=== PATIENT | female | born 1985 | race Caucasian/White ===

== ENCOUNTER 2017-12-13 00:07 | Emergency (ER) | payer BC ==
[2017-12-13] MEDS ORDERED: Morphine 10 MG/ML Syringe IM ONE (01:39)
[2017-12-13 02:43] VITALS: BP 111/68
--- NOTE | 2017-12-14 09:29 | ER ---
DATE SEEN: 12/13/2017 REASON FOR VISIT: Abdominal pain. HISTORY OF PRESENT ILLNESS: This is a 31-year-old female complaining of abdominal pain. Her pain is moderate, started tonight in the lower abdominal quadrants. There is no association with any vaginal bleeding, urinary symptoms, or GI symptoms. PAST SURGICAL HISTORY: 1. Appendectomy. 2. Gallbladder surgery. 3. x2. ALLERGIES: Reviewed. MEDICATIONS: Reviewed. PAST MEDICAL HISTORY: Type 2 diabetes. PHYSICAL EXAMINATION: VITAL SIGNS: Blood pressure is normal, pulse is 87, and she is afebrile. ABDOMEN: Soft with tenderness in the lower quadrants, but no rebound and no masses. CHEST AND HEART: Normal to auscultation. PSYCHIATRIC: Mental status is alert. LABORATORY DATA: Normal electrolytes and UA. Negative test. White cell count of 16.4. DIAGNOSTIC STUDIES: Pelvic ultrasound was unremarkable. IMPRESSION: Nonspecific abdominal pain. PLAN: Morphine 10 mg IM x1 dose. Symptoms improved. The patient was discharged home. /[id number] BRIGID/GEORGE
--- NOTE | 2017-12-14 13:56 | US ---
INDICATION: Left lower pelvic pain. PELVIC ULTRASOUND, NON-OB, LIMITED: Multiple ultrasonic images were obtained with transabdominal probe, 12/13/2017, and revealed poor visualization of the uterus and adnexa due to lack of complete filling of the urinary bladder. Endovaginal probe ultrasound will be necessary for further evaluation, therefore. No gross abnormalities were seen - no definite adnexal mass lesion or free fluid collection was identified. INDICATION: Left lower pelvic pain/need better visualization of the uterus and endometrial cavity, as well as ovaries, than was possible with the transabdominal probe. TRANSVAGINAL PELVIC ULTRASOUND: Utilizing transvaginal probe, multiple ultrasonic images were obtained and revealed the uterus to measure 7.2 x 3.3 x 5 cm with a 6.0 mm endometrial cavity measurement. The right ovary had a volume of 8.8 mL, measuring 3 x 3.3 x 1.7 cm. The left ovary volume was 2.6 mL with measurements of 1.4 x 2.2 x 1.6 cm. The endometrial cavity echo appeared essentially normal. Likely on the basis of menstrual cycle, there is some relatively low echogenicity in the central portion. Tiny nabothian cyst is suggested at the cervix. No mass lesions were identified in the myometrium or endometrium. No free fluid collections or adnexal mass lesions were identified. There are multiple follicles at the right ovary, which was otherwise unremarkable. The left ovary showed only very minimal follicles present. This accounts for the difference in volume of the ovaries. IMPRESSION: Essentially normal pelvic ultrasound with transvaginal probe. 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 MTDD
== END 2017-12-13 02:43 | disposition home or self-care (01) ==
LOC: FB.ED 00:07
DX: R10.30 Lower abdominal pain, unspecified (principal); E11.9 Type 2 diabetes mellitus without complications; Z90.49 Acquired absence of other specified parts of digestive tract
CPT/HCPCS: 36415; 76830; 76857; 80053; 81001; 81025; 82150; 85025; 96372; 99284; J2270

== ENCOUNTER 2018-04-03 07:36 | Emergency (ER) | payer BC, OTHER ==
[2018-04-03] MEDS ORDERED: HYDROmorphone 2 MG/ML SDV IM ONE (07:56)
--- NOTE | 2018-04-03 08:00 | EDM.PDOC ---
ED HPI GENERAL MEDICAL PROBLEM - General Chief Complaint: Back Pain or Injury Stated Complaint: back pain Time Seen by Provider: 04/03/18 07:57 Source of Information: Reports: Patient History Limitations: Reports: No Limitations - History of Present Illness INITIAL COMMENTS - FREE TEXT/NARRATIVE: [place] a pop @mid back yesterday at work while lifting 5 lb tubes, developed mid back pain that radiates to hips and up back, not relieved by Ibuprofen or Tylenol. 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 Pain Score (Numeric/FACES): 10 - Related Data Allergies Allergy/AdvReac Type Severity Reaction Status Date / Time latex Allergy Rash Verified 04/03/18 07:50 naproxen [From Naprosyn] Allergy Nausea and Verified 04/03/18 07:50 Vomiting Penicillins Allergy Rash Verified 04/03/18 07:50 Home Meds: Home Meds Ibuprofen [Motrin] 600 mg PO Q6HR PRN 06/12/13 [History] Topiramate [Topamax] 50 mg PO BID 02/15/14 [History] Pregabalin [Lyrica] 150 mg PO BID 04/06/14 [History] [place] Carbonate [Eskalith] 300 mg PO BID 11/26/15 [History] traZODone 50 mg PO DAILY 11/26/15 [History] Acetaminophen/HYDROcodone [[place] 325-5 MG] 1 - 2 tab PO Q6H PRN #20 tab [Rx] Lurasidone HCl [Latuda] 1 tab PO BEDTIME 04/03/18 [History] sitaGLIPtin Phos/Metformin HCl [Janumet 50-1,000 MG] 1 tab PO BID 04/03/18 [ History] Past Medical History HEENT History: Reports: Impaired Vision Respiratory History: Reports: Bronchitis, Recurrent Gastrointestinal History: Reports: Cholelithiasis 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: Musculoskeletal History: Reports: Fibromyalgia Psychiatric History: Reports: Anxiety, Depression, Panic Attack Endocrine/Metabolic History: Reports: Diabetes, Type II - Past Surgical History GI Surgical History: Reports: Appendectomy, Cholecystectomy, Other (See Below) Other GI Surgeries/Procedures: exp lap for ruptured cyst Female Surgical History: Reports: Section Social & Family History - Family History Family Medical History: Noncontributory - Tobacco Use Smoking Status *Q: Current Every Day Smoker Tobacco Use Within Last Twelve Months: Cigarettes - Caffeine Use Caffeine Use: Reports: Coffee, Soda - Living Situation & Occupation Living situation: Reports: Occupation: Unemployed ED ROS GENERAL - Review of Systems Review Of Systems: ROS reveals no pertinent complaints other than HPI. ED EXAM, UPPER BACK/NECK PAIN - Physical Exam Exam: See Below Exam Limited By: No Limitations General Appearance: Alert, WD/WN, No Apparent Distress Ears Exam: Normal External Exam Nose Exam: Normal Inspection Throat/Mouth Exam: No Airway Compromise Head Exam: Atraumatic, Normocephalic Neck Exam: Full Range of Motion Cardiovascular/Respiratory: Regular Rate, Rhythm, No M/R/G GI/Abdominal: Non-Tender Back Exam: Muscle Spasm, Vertebral Tenderness (mid back) Extremities: Normal Range of Motion Neurologic: No Motor/Sensory Deficits, Normal Mood/Affect Psychiatric: Normal Affect, Normal Mood Skin Exam: Normal Color, Warm/Dry Course - Vital Signs Last Recorded V/S: Last Vital Signs Temp 36.9 C 04/03/18 07:45 Pulse 90 04/03/18 07:45 Resp 17 04/03/18 07:45 BP 136/65 04/03/18 07:45 Pulse Ox 100 04/03/18 07:45 - Orders/Labs/Meds Orders: Active Orders 24 hr Category Date Time Status Thoracic Spine 3V [CR] Stat Exams 04/03/18 07:56 Ordered Meds: Medications Discontinued Medications Generic Name Dose Route Start Last Admin Trade Name Jose Manuel PRN Reason Stop Dose Admin Hydromorphone HCl 1 mg 04/03/18 07:56 04/03/18 08:38 Dilaudid IM 04/03/18 07:57 1 mg ONETIME ONE Administration - Radiology Interpretation Free Text/Narrative:: Thoracic spine XR: NAD - Re-Assessments/Exams Free Text/Narrative Re-Assessment/Exam: 04/03/18 08:53 Symptoms improved after Dilaudid 1mg IM Departure - Departure Time of Disposition: 08:53 Disposition: Home, Self-Care 01 Condition: Good Clinical Impression: Strain of mid-back Qualifiers: Encounter type: initial encounter Qualified Code(s): S29.012A - Strain of muscle and tendon of back wall of thorax, initial encounter - Discharge Information *PRESCRIPTION DRUG MONITORING PROGRAM REVIEWED*: Yes *COPY OF PRESCRIPTION DRUG MONITORING REPORT IN PATIENT [place]: Not Applicable Prescriptions: Acetaminophen/HYDROcodone [[place] 325-5 MG] 1 - 2 tab PO Q6H PRN #20 tab PRN Reason: Pain Instructions: Back Injury Prevention, [id number] Referrals: Artis Antonio MD [Primary Care Provider] - Forms: ED Department Discharge, ED Return to Work/School Form Additional Instructions: Rest. Fill prescription for [place] and take as directed. Avoid lifting greater than 10 lbs x 1 week. Follow up with your primary physician in 2-3 days. Return to the ER as needed. - My Orders Last 24 Hours: My Active Orders 04/03/18 07:56 Thoracic Spine 3V [CR] Stat - Assessment/Plan Last 24 Hours: My Active Orders 04/03/18 07:56 Thoracic Spine 3V [CR] Stat
[2018-04-03 09:39] VITALS: BP 137/79
--- NOTE | 2018-04-06 15:20 | CR ---
INDICATION: Injury. THORACIC SPINE: Six images of the thoracic spine were obtained in frontal and lateral projections and revealed normal appearing bone density, vertebral body and disk heights to be well-maintained, pedicles to appear intact. Minimal degenerative hypertrophic change is noted anteriorly off mid thoracic vertebral bodies. If occult fracture site is suspected clinically, nuclear bone imaging, CT, or MRI may be helpful. A very minimal dextroconvex scoliosis is suggested at the thoracolumbar spine. IMPRESSION: No acute fracture or dislocation identified. MTDD
== END 2018-04-03 09:12 | disposition home or self-care (01) ==
LOC: FB.ED 07:36
DX: S29.012A Strain of muscle and tendon of back wall of thorax, initial encounter (principal); E11.9 Type 2 diabetes mellitus without complications; Z91.040 Latex allergy status; Z88.0 Allergy status to penicillin; X50.9XXA Other and unspecified overexertion or strenuous movements or postures, initial encounter
CPT/HCPCS: 72072; 96372; 99283; J1170

== ENCOUNTER 2018-09-09 23:16 | Emergency (ER) | payer BC ==
[2018-09-09] MEDS ORDERED: Ketorolac 60 MG/2 ML SDV IM ONE (23:58)
--- NOTE | 2018-09-10 00:02 | EDM.PDOC ---
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 has had pain in upper mid chest to pressure, ibuprofen once earlier today helped , not taken other meds has DM smokes 1 ppd no previous heart or lung problems constant, nothing helps except ibuprofen, nothing makes it worse needs a note for work 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 chest radiating into upper back Pain Score (Numeric/FACES): 7 - Related Data Allergies Allergy/AdvReac Type Severity Reaction Status Date / Time latex Allergy Rash Verified 09/09/18 23:24 naproxen [From Naprosyn] Allergy Nausea and Verified 09/09/18 23:24 Vomiting Penicillins Allergy Rash Verified 09/09/18 23:24 Home Meds: Home Meds Ibuprofen [Motrin] 600 mg PO Q6HR PRN 06/12/13 [History] Topiramate [Topamax] 50 mg PO BID 02/15/14 [History] Pregabalin [Lyrica] 300 mg PO BID 04/06/14 [History] [place] Carbonate [Eskalith] 900 mg PO DAILY 11/26/15 [History] traZODone 150 mg PO DAILY 11/26/15 [History] Lurasidone HCl [Latuda] 120 mg PO BEDTIME 04/03/18 [History] sitaGLIPtin Phos/Metformin HCl [Janumet 50-1,000 MG] 1 tab PO BID 04/03/18 [ History] Eszopiclone 3 mg BEDTIME 09/09/18 [History] Insulin Aspart [NovoLOG] 10 units TID 09/09/18 [History] Insulin Degludec [Tresiba Flextouch U-100] 50 unit SQ DAILY 09/09/18 [History] [place] Carbonate 600 mg BEDTIME 09/09/18 [History] Past Medical History HEENT History: Reports: Impaired Vision Other HEENT History: no dentures Respiratory History: Reports: Bronchitis, Recurrent Gastrointestinal History: Reports: Cholelithiasis Genitourinary History: Reports: None 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: Reports: Polycystic Ovaries, 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: Musculoskeletal History: Reports: Fibromyalgia Neurological History: Reports: Migraines, Neuropathy, Diabetic Psychiatric History: Reports: Anxiety, Bipolar, Depression, Panic Attack, Psych Hospitalization(s), Suicide Attempt Endocrine/Metabolic History: Reports: Diabetes, Type II, Obesity/BMI 30+ - Past Surgical History HEENT Surgical History: Reports: Adenoidectomy, Oral Surgery, Tonsillectomy GI Surgical History: Reports: Appendectomy, Cholecystectomy, Other (See Below) Other GI Surgeries/Procedures: exp lap for ruptured cyst Female Surgical History: Reports: Section Other Female Surgeries/Procedures: CS x 1 Neurological Surgical History: Reports: None Musculoskeletal Surgical History: Reports: None Social & Family History - Family History Family Medical History: Noncontributory - Tobacco Use Smoking Status *Q: Current Every Day Smoker Years of Tobacco use: 20 Packs/Tins Daily: 0.5 - Caffeine Use Caffeine Use: Reports: Coffee, Energy Drinks, Soda - Recreational Drug Use Recreational Drug Use: No - Living Situation & Occupation Living situation: Reports: Occupation: Unemployed ED ROS GENERAL - Review of Systems Review Of Systems: See Below Constitutional: Reports: No Symptoms HEENT: Reports: No Symptoms Respiratory: Reports: No Symptoms Cardiovascular: Reports: Chest Pain Endocrine: Reports: No Symptoms GI/Abdominal: Reports: No Symptoms : Reports: No Symptoms Musculoskeletal: Reports: No Symptoms Skin: Reports: No Symptoms Neurological: Reports: No Symptoms Psychiatric: Reports: No Symptoms Hematologic/Lymphatic: Reports: No Symptoms Immunologic: Reports: No Symptoms ED EXAM, GENERAL - Physical Exam Exam: See Below Exam Limited By: No Limitations General Appearance: Alert, WD/WN, No Apparent Distress Nose: Normal Inspection, Normal Mucosa, No Blood Throat/Mouth: Normal Inspection, Normal Lips, Normal Teeth, Normal Gums, Normal Oropharynx, Normal Voice, No Airway Compromise Head: Atraumatic, Normocephalic Neck: Normal Inspection, Supple, Non-Tender, Full Range of Motion. No: Lymphadenopathy (R), Lymphadenopathy (L) Respiratory/Chest: No Respiratory Distress, Lungs Clear, Normal Breath Sounds, No Accessory Muscle Use, Other (1-2+ tender to palaption of upper sternum and adjacent ribs, lungs clear in all rosa) Cardiovascular: Regular Rate, Rhythm, No Edema, No Gallop, No Murmur, No Rub GI/Abdominal: Soft, Non-Tender, No Distention Back Exam: Normal Inspection, Full Range of Motion, NT Extremities: Normal Inspection, Normal Range of Motion, Non-Tender, No Pedal Edema Neurological: Alert, Oriented, CN II-XII Intact, Normal Cognition, No Motor/ Sensory Deficits Psychiatric: Normal Affect, Normal Mood Skin Exam: Warm, Dry, Intact, Normal Color, No Rash Lymphatic: No Adenopathy Course - Vital Signs Last Recorded V/S: Last Vital Signs Temp 36.9 C 09/09/18 23:24 Pulse 90 09/09/18 23:24 Resp 18 09/09/18 23:24 BP 118/62 09/09/18 23:24 Pulse Ox 98 09/09/18 23:24 - Orders/Labs/Meds Orders: Active Orders 24 hr Category Date Time Status EKG Documentation Completion [RC] ASDIRECTED Care 09/09/18 23:42 Active CULTURE STREP A CONFIRMATION [RM] Stat Lab 09/10/18 00:10 Results STREP SCRN A RAPID W CULT CONF [RM] Stat Lab 09/09/18 23:59 Ordered EKG 12 Lead [EK] Routine Ther 09/09/18 23:42 Ordered Labs: Laboratory Tests 09/10/18 09/10/18 09/10/18 Range/Units 00:20 00:20 00:20 WBC 16.4 H (4.5-12.0) X10-3/uL RBC 4.92 (3.23-5.20) x10(6)uL Hgb 14.3 (11.5-15.5) g/dL Hct 42.6 (30.0-51.3) % MCV 86.7 (80-96) fL MCH 29.0 (27.7-33.6) pg MCHC 33.5 (32.2-35.4) g/dL RDW 13.2 (11.5-15.5) % Plt Count 228 (125-369) X10(3)uL MPV 9.3 (7.4-10.4) fL Neut % (Auto) 67.0 (46-82) % Lymph % (Auto) 21.4 (13-37) % [place] % (Auto) 6.0 (4-12) % Eos % (Auto) 5 (1.0-5.0) % Baso % (Auto) 0 (0-2) % Neut # (Auto) 10.9 H (1.6-8.3) # Lymph # (Auto) 3.5 (0.6-5.0) # [place] # (Auto) 1.0 (0.0-1.3) # Eos # (Auto) 0.9 H (0.0-0.8) # Baso # (Auto) 0.1 (0.0-0.2) # Sodium 141 (135-145) mmol/L Potassium 3.5 (3.5-5.3) mmol/L Chloride 103 (100-110) mmol/L Carbon Dioxide 27 (21-32) mmol/L BUN 10 (7-18) mg/dL Creatinine 0.8 (0.55-1.02) mg/dL Est Cr Clr Drug Dosing 99.95 mL/min Estimated GFR (MDRD) > 60 (>60) BUN/Creatinine Ratio 12.5 (9-20) Glucose 158 H (80-116) mg/dL Calcium 9.5 (8.6-10.2) mg/dL Total Bilirubin 0.4 (0.1-1.3) mg/dL AST 22 (5-25) IU/L ALT 32 D (12-36) U/L Alkaline Phosphatase 130 H (56-112) IU/L Troponin I < 0.017 L (<0.017-0.056) ng/mL C-Reactive Protein 1.8 H (0.5-0.9) mg/dL Total Protein 7.2 (6.0-8.0) g/dL Albumin 3.4 L (3.5-5.2) g/dL Globulin 3.8 g/dL Albumin/Globulin Ratio 0.9 Meds: Medications Discontinued Medications Generic Name Dose Route Start Last Admin Trade Name Freq PRN Reason Stop Dose Admin Ketorolac Tromethamine 60 mg 09/09/18 23:58 09/10/18 00:10 Toradol IM 09/09/18 23:59 60 mg ONETIME ONE Administration - Re-Assessments/Exams Free Text/Narrative Re-Assessment/Exam: 09/10/18 01:07 inc'd CRP 1.8 c/w viral bronchitis as cause of cough strep and flu are neg feels better after Toradol IM, agrees to use ibuprofen and APAP at home Departure - Departure Time of Disposition: 01:08 Disposition: Home, Self-Care 01 Condition: Good Clinical Impression: Costochondritis Instructions: Costochondritis Referrals: Artis Antonio MD [Primary Care Provider] - Forms: ED Department Discharge, ED Return to Work/School Form Additional Instructions: For pain and inflammation, take acetaminophen 500 mg 2 tabs and ibuprofen 200 mg 4 tabs 3 times a day for 5 days, longer if needed. Use heat to chest for 10 minutes 4 times a day. No work. See your doctor in 3 days for further recommendations. Return to ED if feeling worse. - My Orders Last 24 Hours: My Active Orders 09/09/18 23:42 EKG Documentation Completion [RC] ASDIRECTED EKG 12 Lead [EK] Routine 09/09/18 23:59 STREP SCRN A RAPID W CULT CONF [RM] Stat 09/10/18 00:10 CULTURE STREP A CONFIRMATION [RM] Stat - Assessment/Plan Last 24 Hours: My Active Orders 09/09/18 23:42 EKG Documentation Completion [RC] ASDIRECTED EKG 12 Lead [EK] Routine 09/09/18 23:59 STREP SCRN A RAPID W CULT CONF [RM] Stat 09/10/18 00:10 CULTURE STREP A CONFIRMATION [RM] Stat
[2018-09-10 01:09] VITALS: BP 99/43
== END 2018-09-10 01:20 | disposition home or self-care (01) ==
LOC: FB.ED 23:16
DX: M94.0 Chondrocostal junction syndrome [Tietze] (principal); F17.210 Nicotine dependence, cigarettes, uncomplicated; E11.40 Type 2 diabetes mellitus with diabetic neuropathy, unspecified; F31.9 Bipolar disorder, unspecified; F41.9 Anxiety disorder, unspecified; Z91.040 Latex allergy status; Z79.899 Other long term (current) drug therapy; Z79.4 Long term (current) use of insulin
CPT/HCPCS: 36415; 80053; 84484; 85025; 86140; 87081; 87804; 87880; 93005; 96372; 99284; J1885

== ENCOUNTER 2018-10-02 22:36 | Emergency (ER) | payer BC ==
[2013-06-12 08:42] VITALS: BP 138/89
[2018-10-02] MEDS ORDERED: hydrOXYzine HCl 50 MG/ML SDV IM ONE (23:24)
[2018-10-02] MEDS ORDERED: Morphine 10 MG/ML Syringe IM ONE (23:24)
[2018-10-02] MEDS ORDERED: Morphine 2 MG/ML Syringe IM ONE (23:31)
--- NOTE | 2018-10-02 23:49 | ER ---
DATE SEEN: 10/02/2018 CHIEF COMPLAINT: Left knee pain. HISTORY OF PRESENT ILLNESS: This is a 32-year-old female with left knee pain for a few hours. She left work because the pain on the left knee became unbearable. There was no specific injury and the pain started before she went to work. She had trouble with both knees before, especially on the right one. She also has a history of back pain, type 2 diabetes and fibromyalgia. She has tried Tylenol at home with no relief. REVIEW OF SYSTEMS: No fever or chills. She complains some swelling and the knee pain is most localized in the back. Denies any weakness. ALLERGIES: Please see the electronic record. PHYSICAL EXAMINATION: VITAL SIGNS: Her blood pressure and temperature within normal limits. EXTREMITIES: Left knee, no obvious effusion noted. No trauma. There is tenderness anteriorly and some in the popliteal fossa. Range of motion is unlimited. Gait and station are normal. IMPRESSION: Knee pain, acute internal derangement. PLAN: Morphine 10 mg IM and Vistaril 50 mg IM. I recommended rest, ice and elevation and I asked her to return to work, but not to bear weight on it and she should follow up on Thursday in the clinic. TIME OF DISCHARGE: 1130. /[id number] BRIGID/GEORGE
[2018-10-02 23:58] VITALS: BP 123/75
== END 2018-10-03 00:01 | disposition home or self-care (01) ==
LOC: FB.ED 22:36
DX: M23.92 Unspecified internal derangement of left knee (principal); E11.9 Type 2 diabetes mellitus without complications; Z79.4 Long term (current) use of insulin; Z79.899 Other long term (current) drug therapy; Z91.040 Latex allergy status; Z88.5 Allergy status to narcotic agent; Z88.0 Allergy status to penicillin
CPT/HCPCS: 96372; 99283; J2270; J3410

== ENCOUNTER 2019-04-23 15:52 | Inpatient (IN) | payer BC, OTHER ==
[2019-04-23] MEDS ORDERED: Promethazine 12.5 MG in Sodium Chloride 0.9% 50 ML IV PRN (16:32)
[2019-04-23] MEDS ORDERED: Ondansetron 4 MG Tab.DIS PO PRN (16:32)
--- NOTE | 2019-04-23 16:51 | PCM.HP.2 ---
H&P History of Present Illness - General Date of Service: 04/23/19 Admit Problem/Dx: Admission Diagnosis/Problem Admission Diagnosis/Problem Cellulitis of buttock Source of Information: Patient, Family History Limitations: Reports: No Limitations - History of Present Illness Initial Comments - Free Text/Narative: Patient noted pain with sitting and green foul drainage from left buttock starting on , she refused to come to the doctor on when her advised her to. She has been having fevers, chills, nausea, vomiting, but no diarrhea. Last emesis was last night. She has had increased frequency but no dysuria or hematuria. She has not done any sitz baths or applied any topical antibiotics. Rates pain 04/21. Was seen in Walk-In clinic today and when provider examined, called me for admission. She was afebrile in the clinic but tachycardiac. When she arrived to floor she was febrile, 101. She has been having cold symptoms for the past week but has not taken any treatments. She is Diabetic that has Tresiba, Novolog and Janumet but has not been taking her medications. She knows that her uncontrolled sugars put her at risk of infections. She also report being achy all over. No dizziness or lightheadedness. Also was treated for fungal infection on her feet with oral and topical medication(not sure of the names), oral for 4 weeks but did not change the rash. - Related Data Allergies/Adverse Reactions: Allergies Allergy/AdvReac Type Severity Reaction Status Date / Time latex Allergy Rash Verified 10/02/18 23:49 naproxen [From Naprosyn] Allergy Nausea and Verified 10/02/18 23:49 Vomiting Penicillins Allergy Rash Verified 10/02/18 23:49 Home Medications: Home Meds Ibuprofen [Motrin] 600 mg PO Q6HR PRN 06/12/13 [History] Topiramate [Topamax] 50 mg PO BID 02/15/14 [History] Pregabalin [Lyrica] 300 mg PO BID 04/06/14 [History] Butte Carbonate [Eskalith] 900 mg PO DAILY 11/26/15 [History] traZODone 150 mg PO DAILY 11/26/15 [History] Lurasidone HCl [Latuda] 120 mg PO BEDTIME 04/03/18 [History] sitaGLIPtin Phos/Metformin HCl [Janumet 50-1,000 MG] 1 tab PO BID 04/03/18 [ History] Eszopiclone 3 mg BEDTIME 09/09/18 [History] Insulin Aspart [NovoLOG] 10 units TID 09/09/18 [History] Insulin Degludec [Tresiba Flextouch U-100] 50 unit SQ DAILY 09/09/18 [History] [place]te Carbonate 600 mg BEDTIME 09/09/18 [History] Past Medical History HEENT History: Reports: Impaired Vision Other HEENT History: no dentures Respiratory History: Reports: Bronchitis, Recurrent Gastrointestinal History: Reports: Cholelithiasis Genitourinary History: Reports: None 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 ASSISTANT History: Reports: Polycystic Ovaries, Other OB/BYN History: Musculoskeletal History: Reports: Fibromyalgia Neurological History: Reports: Migraines, Neuropathy, Diabetic Psychiatric History: Reports: Anxiety, Bipolar, Depression, Panic Attack, Psych Hospitalization(s), Suicide Attempt Endocrine/Metabolic History: Reports: Diabetes, Type II, Obesity/BMI 30+ - Past Surgical History HEENT Surgical History: Reports: Adenoidectomy, Oral Surgery, Tonsillectomy GI Surgical History: Reports: Appendectomy, Cholecystectomy, Other (See Below) Other GI Surgeries/Procedures: exp lap for ruptured cyst Female Surgical History: Reports: Section Other Female Surgeries/Procedures: CS x 1 Neurological Surgical History: Reports: None Musculoskeletal Surgical History: Reports: None Social & Family History - Family History Family Medical History: Noncontributory - Caffeine Use Caffeine Use: Reports: Coffee, Soda - Living Situation & Occupation Living situation: Reports: Occupation: Unemployed H&P Review of Systems - Review of Systems: Review Of Systems: See Below General: Reports: Fever, Chills, Weakness, Fatigue HEENT: Reports: Rhinitis, Sinus Congestion. Denies: Ear Pain, Eye Pain, Headaches, Sore Throat Pulmonary: Reports: Cough. Denies: Shortness of Breath Cardiovascular: Reports: No Symptoms Gastrointestinal: Reports: Abdominal Pain, Nausea, Vomiting. Denies: Constipation, Diarrhea Genitourinary: Reports: Frequency. Denies: Dysuria, Hematuria Musculoskeletal: Reports: Muscle Pain Skin: Reports: Rash, Wound Neurological: Reports: No Symptoms Hematologic/Lymphatic: Reports: No Symptoms Exam - Exam Exam: See Below - Exam General: Alert, Oriented, Cooperative HEENT: PERRLA, Hearing Intact, Mucosa Moist & [place], Nares Patent, Normal Nasal Septum, Posterior Pharynx Clear, Conjunctiva Clear, EOMI, EACs Clear, TMs Clear Neck: Supple, Trachea Midline. No: Lymphadenopathy Lungs: Clear to Auscultation, Normal Respiratory Effort Cardiovascular: Regular Rate, Tachycardia GI/Abdominal Exam: Normal Bowel Sounds, Soft, No Distention, Guarding, Tender ( BLQ). No: Rigid, Rebound (Female) Exam: Normal External Exam, Normal Speculum Exam, Normal Bimanual Exam Rectal (Female) Exam: Other (Foul green drainage(culture collected), indurated, tender erythematous warm area 7 cm, surrounding erythema 18 cm, edges marked with skin marker) Extremities: No Pedal Edema Skin: Rash (left foot, yellow, fissured patches on ball, instep, and lateral side of her foot.) Neuro Extensive - Mental Status: Alert, Oriented x3 - Problem List (1) Cellulitis of left buttock SNOMED Code(s): 26645601 ICD Code: L03.317 - CELLULITIS OF BUTTOCK Status: Acute Current Visit: Yes (2) Nausea & vomiting SNOMED Code(s): 99091357 ICD Code: R11.2 - NAUSEA WITH VOMITING, UNSPECIFIED Status: Acute Current Visit: Yes (3) Fever SNOMED Code(s): 435377699 ICD Code: R50.9 - FEVER, UNSPECIFIED Status: Acute Current Visit: Yes (4) Fibromyalgia SNOMED Code(s): 336679477 ICD Code: M79.7 - FIBROMYALGIA Status: Acute Current Visit: Yes (5) Diabetes mellitus with insulin therapy SNOMED Code(s): 928130396 ICD Code: E11.9 - TYPE 2 DIABETES MELLITUS WITHOUT COMPLICATIONS; Z79.4 - ALF (CURRENT) USE OF INSULIN Status: Acute Current Visit: Yes Problem List Initiated/Reviewed/Updated: Yes Orders Last 24hrs: Active Orders 24 hr Category Date Time Status Patient Status [ADT] Routine ADT 04/23/19 16:32 Ordered Ambulate [RC] PER UNIT ROUTINE Care 04/23/19 16:34 Ordered Antiembolic Devices [RC] .Routine Care 04/23/19 16:32 Ordered Blood Glucose Check, Bedside [RC] WITHMEALSANDBED Care 04/23/19 16:32 Ordered May Shower [RC] ASDIRECTED Care 04/23/19 16:32 Ordered Oxygen Therapy [RC] PRN Care 04/23/19 16:32 Ordered Peripheral IV Care [RC] . DIRECTED Care 04/23/19 16:32 Ordered Up ad Mikayla [RC] ASDIRECTED Care 04/23/19 16:32 Ordered VTE/DVT Education [RC] Per Unit Routine Care 04/23/19 16:32 Ordered Vital Signs [RC] Q4H Care 04/23/19 16:32 Ordered Consistent Carbohydrate Diet [DIET] Diet 04/23/19 Dinner Ordered CBC WITH AUTO DIFF [HEME] Urgent Lab 04/23/19 16:32 Ordered COMPREHENSIVE METABOLIC PN,CMP [CHEM] Urgent Lab 04/23/19 16:32 Ordered CRP [C-REACTIVE PROTEIN] [CHEM] Urgent Lab 04/23/19 16:44 Ordered CULTURE BLOOD [BC] Urgent Lab 04/23/19 16:40 Ordered CULTURE BLOOD [BC] Urgent Lab 04/23/19 16:40 Ordered CULTURE ROUTINE + SMEAR [RM] Routine Lab 04/23/19 16:32 Ordered UA W/MICROSCOPIC [URIN] Routine Lab 04/23/19 16:32 Ordered Acetaminophen [Tylenol] Med 04/23/19 16:32 Ordered 650 mg PO Q4H PRN Enoxaparin [Lovenox] Med 04/23/19 16:45 Ordered 40 mg SUBCUT Q24H HYDROmorphone [Dilaudid] Med 04/23/19 16:32 Ordered 0.25 mg IVPUSH Q2H PRN Ketorolac [Toradol] Med 04/23/19 16:32 Ordered 30 mg IVPUSH Q6H PRN Nicotine [Habitrol] Med 04/23/19 16:45 Ordered 7 mg TRDERM DAILY Ondansetron [Zofran ODT] Med 04/23/19 16:32 Ordered 4 mg PO Q4H PRN Promethazine [Phenergan] 12.5 mg Med 04/23/19 16:32 Ordered Sodium Chloride 0.9% [Normal Saline] 50 ml IV Q6H Sodium Chloride 0.9% @ 125 MLS/HR (1000ml) Med 04/23/19 16:45 Ordered Sodium Chloride 0.9% [Normal Saline] 1,000 ml IV ASDIRECTED Sodium Chloride 0.9% [Saline Flush] Med 04/23/19 16:32 Ordered 10 ml FLUSH ASDIRECTED PRN Antiembolic Hose [OM.PC] Per Unit Routine Oth 04/23/19 16:34 Ordered Blood Culture x2 Reflex Set [OM.PC] Urgent Oth 04/23/19 16:32 Ordered Peripheral IV Insertion Adult [OM.PC] Routine Oth 04/23/19 16:32 Ordered Resuscitation Status Routine Resus Stat 04/23/19 16:32 Ordered Medication Orders Acetaminophen (Tylenol) 650 mg PO Q4H PRN PRN Reason: Pain (Mild 1-3)/fever Enoxaparin Sodium (Lovenox) 40 mg SUBCUT Q24H [facility] Hydromorphone HCl (Dilaudid) 0.25 mg IVPUSH Q2H PRN PRN Reason: Pain (severe 7-10) Promethazine HCl 12.5 mg/ (Sodium Chloride) 50.5 mls @ 200 mls/hr IV Q6H PRN PRN Reason: Nausea/Vomiting Sodium Chloride (Normal Saline) 1,000 mls @ 125 mls/hr IV ASDIRECTED [facility] Ketorolac Tromethamine (Toradol) 30 mg IVPUSH Q6H PRN PRN Reason: Pain (moderate 4-6) Nicotine (Habitrol) 7 mg TRDERM DAILY [facility] Ondansetron HCl (Zofran Odt) 4 mg PO Q4H PRN PRN Reason: nausea, able to take PO Sodium Chloride (Saline Flush) 10 ml FLUSH ASDIRECTED PRN PRN Reason: Keep Vein Open Assessment/Plan Comment:: Admit for observation: IV antibiotics, CBC, CMP, CRP, wound culture, Blood cultures x 2, Urine. Tylenol as needed for fever, Ketorolac as needed moderate pain, receive dose in clinic around 4 pm. Dilaudid as needed severe pain. Dressed with 4x4 gauze, & ABD pad. It is draining, if worsens will do CT abdomen /pelvis with contrast and consult surgery. FULL CODE. - Mortality Measure Prognosis:: Good
[2019-04-23] MEDS ORDERED: Ciprofloxacin in D5W 400 MG in Premix Bag 1 BAG IV SCH ×2 (18:00)
[2019-04-23] MEDS: Nicotine 7 MG/24 Hr Patch TRDERM SCH (18:20)
[2019-04-23] MEDS: Enoxaparin 40 MG/0.4 ML Syringe SUBCUT SCH (18:20)
[2019-04-23] MEDS: Sodium Chloride 0.9% 10 ML Syringe FLUSH PRN ×3 (18:22→22:28)
[2019-04-23] MEDS ORDERED: Insulin Regular, Human 100 Units/ML 3 ML Vial IV ONE (19:06)
[2019-04-23] MEDS ORDERED: Sodium Chloride 0.9% 1,000 ML IV ONE (19:07)
[2019-04-23] MEDS: metroNIDAZOLE/Normal Saline 500 MG in Premix Bag 1 BAG IV SCH ×2 (19:18→22:16)
--- NOTE | 2019-04-23 20:17 | PCM.PN ---
- General Info Date of Service: 04/23/19 Subjective Update: Called to review labs/patient. She is running a temp,blood sugar high. Drainage, smelly on the sacrum - Review of Systems HEENT: Reports: No Symptoms Pulmonary: Reports: No Symptoms Cardiovascular: Reports: No Symptoms Gastrointestinal: Reports: Diarrhea - Patient Data Vitals - Most Recent: Last Vital Signs Temp 101.1 F H 04/23/19 16:32 Pulse 114 H 04/23/19 16:32 Resp 16 04/23/19 16:32 BP 112/60 04/23/19 16:32 Pulse Ox 95 04/23/19 16:32 Weight - Most Recent: 118.025 kg Lab Results Last 24 Hours: Laboratory Results - last 24 hr 04/23/19 04/23/19 04/23/19 Range/Units 17:00 17:00 17:00 WBC 20.0 H (4.5-12.0) X10-3/uL RBC 5.10 (3.23-5.20) x10(6)uL Hgb 14.4 (11.5-15.5) g/dL Hct 42.9 (30.0-51.3) % MCV 84.0 (80-96) fL MCH 28.2 (27.7-33.6) pg MCHC 33.5 (32.2-35.4) g/dL RDW 12.7 (11.5-15.5) % Plt Count 157 (125-369) X10(3)uL MPV 11.7 H (7.4-10.4) fL Add Manual Diff Yes Neutrophils % (Manual) 79 (46-82) % Band Neutrophils % 5 (0-6) % Lymphocytes % (Manual) 7 L (13-37) % Monocytes % (Manual) 9 (4-12) % Toxic Granulation Few H (NOT SEEN) Sodium 130 L D (135-145) mmol/L Potassium 3.2 L (3.5-5.3) mmol/L Chloride 95 L D (100-110) mmol/L Carbon Dioxide 22 (21-32) mmol/L BUN 11 (7-18) mg/dL Creatinine 0.8 (0.55-1.02) mg/dL Est Cr Clr Drug Dosing 99.01 mL/min Estimated GFR (MDRD) > 60 (>60) BUN/Creatinine Ratio 13.8 (9-20) Glucose 491 H* D (80-116) mg/dL Calcium 8.8 (8.6-10.2) mg/dL Total Bilirubin 0.5 (0.1-1.3) mg/dL AST 16 D (5-25) IU/L ALT 26 D (12-36) U/L Alkaline Phosphatase 193 H (56-112) IU/L C-Reactive Protein 20.9 H* (0.5-0.9) mg/dL Total Protein 6.9 (6.0-8.0) g/dL Albumin 2.2 L (3.5-5.2) g/dL Globulin 4.7 g/dL Albumin/Globulin Ratio 0.5 Urine Color (YELLOW) Urine Appearance (CLEAR) Urine pH (5.0-6.5) Ur Specific [place] (1.010-1.025) Urine Protein (NEGATIVE) mg/dL Urine Glucose (UA) (NORMAL) mg/dL Urine Ketones (NEGATIVE) mg/dL Urine Occult Blood (NEGATIVE) Urine Nitrite (NEGATIVE) Urine Bilirubin (NEGATIVE) Urine Urobilinogen (NEGATIVE) mg/dL Ur Leukocyte Esterase (NEGATIVE) Urine RBC (0-5) Urine WBC (0-5) Ur Squamous Epith Cells (NS,R,O) Amorphous Sediment Urine Bacteria (NS) 04/23/19 Range/Units 17:20 WBC (4.5-12.0) X10-3/uL RBC (3.23-5.20) x10(6)uL Hgb (11.5-15.5) g/dL Hct (30.0-51.3) % MCV (80-96) fL MCH (27.7-33.6) pg MCHC (32.2-35.4) g/dL RDW (11.5-15.5) % Plt Count (125-369) X10(3)uL MPV (7.4-10.4) fL Add Manual Diff Neutrophils % (Manual) (46-82) % Band Neutrophils % (0-6) % Lymphocytes % (Manual) (13-37) % Monocytes % (Manual) (4-12) % Toxic Granulation (NOT SEEN) Sodium (135-145) mmol/L Potassium (3.5-5.3) mmol/L Chloride (100-110) mmol/L Carbon Dioxide (21-32) mmol/L BUN (7-18) mg/dL Creatinine (0.55-1.02) mg/dL Est Cr Clr Drug Dosing mL/min Estimated GFR (MDRD) (>60) BUN/Creatinine Ratio (9-20) Glucose (80-116) mg/dL Calcium (8.6-10.2) mg/dL Total Bilirubin (0.1-1.3) mg/dL AST (5-25) IU/L ALT (12-36) U/L Alkaline Phosphatase (56-112) IU/L C-Reactive Protein (0.5-0.9) mg/dL Total Protein (6.0-8.0) g/dL Albumin (3.5-5.2) g/dL Globulin g/dL Albumin/Globulin Ratio Urine Color Yellow (YELLOW) Urine Appearance Clear (CLEAR) Urine pH 6.0 (5.0-6.5) Ur Specific [place] 1.005 L (1.010-1.025) Urine Protein Trace (NEGATIVE) mg/dL Urine Glucose (UA) >1000 H (NORMAL) mg/dL Urine Ketones 50 H (NEGATIVE) mg/dL Urine Occult Blood Large H (NEGATIVE) Urine Nitrite Negative (NEGATIVE) Urine Bilirubin Negative (NEGATIVE) Urine Urobilinogen Normal (NEGATIVE) mg/dL Ur Leukocyte Esterase Small H (NEGATIVE) Urine RBC 0-5 (0-5) Urine WBC 5-10 H (0-5) Ur Squamous Epith Cells Occasional (NS,R,O) Amorphous Sediment Few Urine Bacteria Few H (NS) Med Orders - Current: Current Medications Acetaminophen (Tylenol) 650 mg PO Q4H PRN PRN Reason: Pain (Mild 1-3)/fever Enoxaparin Sodium (Lovenox) 40 mg SUBCUT Q24H [facility] Last Admin: 04/23/19 18:20 Dose: 40 mg Hydromorphone HCl (Dilaudid) 0.25 mg IVPUSH Q2H PRN PRN Reason: Pain (severe 7-10) Promethazine HCl 12.5 mg/ (Sodium Chloride) 50.5 mls @ 200 mls/hr IV Q6H PRN PRN Reason: Nausea/Vomiting Sodium Chloride (Normal Saline) 1,000 mls @ 125 mls/hr IV ASDIRECTED [facility] Ceftriaxone Sodium 2 gm/ (Sodium Chloride) 50 mls @ 200 mls/hr IV Q24H [facility] Vancomycin HCl 2 gm/ Sodium (Chloride) 250 mls @ 167 mls/hr IV Q12H [facility] Ketorolac Tromethamine (Toradol) 30 mg IVPUSH Q6H PRN PRN Reason: Pain (moderate 4-6) Nicotine (Habitrol) 7 mg TRDERM DAILY [facility] Last Admin: 04/23/19 18:20 Dose: Not Given Ondansetron HCl (Zofran Odt) 4 mg PO Q4H PRN PRN Reason: nausea, able to take PO Sodium Chloride (Saline Flush) 10 ml FLUSH ASDIRECTED PRN PRN Reason: Keep Vein Open Last Admin: 04/23/19 18:22 Dose: 10 ml Discontinued Medications Ciprofloxacin/Dextrose 400 mg/ (Premix) 200 mls @ 200 mls/hr IV Q12H [facility] Last Admin: 04/23/19 18:11 Dose: 200 mls/hr Metronidazole 500 mg/ Premix 100 mls @ 100 mls/hr IV Q6H [facility] Last Admin: 04/23/19 19:18 Dose: 100 mls/hr Sodium Chloride (Normal Saline) 1,000 mls @ 999 mls/hr IV ONETIME ONE Stop: 04/23/19 20:07 Last Admin: 04/23/19 19:19 Dose: 999 mls/hr Vancomycin HCl 1 gm/ Sodium (Chloride) 250 mls @ 167 mls/hr IV Q12H [facility] Insulin Human Regular (Humulin R) 5 unit IV ONETIME ONE Stop: 04/23/19 19:07 Last Admin: 04/23/19 19:27 Dose: 5 units - Exam General: Alert HEENT: Pupils Equal Skin: Warm Wound/Incisions: Erythema Neurological: No New Focal Deficit Psy/Mental Status: Alert, Normal Affect Physical Findings Comments:: Indurated,warm tender buttock and sacral area. Foul smelling drainage noted. - Problem List & Annotations (1) SIRS (systemic inflammatory response syndrome) SNOMED Code(s): 170377516 Code(s): R65.10 - SIRS OF NON-INFECTIOUS ORIGIN W/O ACUTE ORGAN DYSFUNCTION Status: Acute Current Visit: Yes (2) Pilonidal cyst with abscess SNOMED Code(s): 70607689 Code(s): L05.01 - PILONIDAL CYST WITH ABSCESS Status: Acute Current Visit : Yes - Problem List Review Problem List Initiated/Reviewed/Updated: Yes - My Orders Last 24 Hours: My Active Orders 04/23/19 19:30 cefTRIAXone [Rocephin] 2 gm Sodium Chloride 0.9% [Normal Saline] 50 ml IV Q24H 04/23/19 21:00 Vancomycin 2 gm Sodium Chloride 0.9% [Normal Saline] 250 ml IV Q12H 04/24/19 05:11 BASIC METABOLIC PANEL,BMP [CHEM] AM CBC WITH AUTO DIFF [HEME] AM - Plan Plan:: I called the surgeon petroleum production engineer,for possible debridement. He advised IV antibiotics and expression of the area. I changed antibiotics to cover MRSA. IV Rocephin and IV Vanco. I also recommend 1 L NS bolus. Repeat Labs in AM.Consider debridement,packing under local anesthesia tomorrow if no improvement.
[2019-04-23] MEDS: Sodium Chloride 0.9% 1,000 ML IV SCH (20:18)
[2019-04-23] MEDS: cefTRIAXone 2 GM in Sodium Chloride 0.9% 50 ML IV SCH (20:19)
[2019-04-23] MEDS ORDERED: Vancomycin 2 GM in Sodium Chloride 0.9% 500 ML IV SCH (21:07)
[2019-04-23] MEDS ORDERED: Insulin Regular, Human 100 Units/ML 3 ML Vial SUBCUT ONE (22:09)
[2019-04-23] MEDS: Ketorolac 30 MG/ML SDV IVPUSH PRN (22:26)
[2019-04-24] MEDS: HYDROmorphone 2 MG/ML SDV IVPUSH PRN ×6 (00:55→20:46)
[2019-04-24] MEDS: Ketorolac 30 MG/ML SDV IVPUSH PRN ×2 (06:29→16:58)
[2019-04-24] MEDS: Acetaminophen 325 MG Tab PO PRN (06:30)
[2019-04-24] MEDS: Sodium Chloride 0.9% 1,000 ML IV SCH ×2 (06:32→17:32)
[2019-04-24] MEDS ORDERED: Iopamidol 755 Mg/ML 100 ML Bottle IV ONE (08:27)
[2019-04-24] MEDS: Nicotine 7 MG/24 Hr Patch TRDERM SCH (09:33)
[2019-04-24] MEDS: Vancomycin 2 GM in Sodium Chloride 0.9% 500 ML IV SCH ×2 (09:34→20:25)
[2019-04-24] MEDS: Sodium Chloride 0.9% 10 ML Syringe FLUSH PRN (12:17)
[2019-04-24] MEDS: Insulin Lispro 100 Unit/ML 3 ML KwikPen SUBCUT SCH ×4 (12:18→17:03)
[2019-04-24] MEDS: Pregabalin 100 MG Cap PO SCH ×2 (12:30→20:45)
--- NOTE | 2019-04-24 13:11 | PCM.PN ---
- General Info Date of Service: 04/24/19 Admission Dx/Problem (Free Text): Patient had diarrhea this morning with posttussive emesis but states after episode she feels better. Dr Antonio assessed patient last night after lab came back, changed her antibiotics to Rocephin & Vancomycin. WBC is 17,000 this morning. No fevers since admission. Having a lot of drainage from right buttock. - Patient Data Vitals - Most Recent: Last Vital Signs Temp 36.6 C 04/24/19 09:00 Pulse 98 04/24/19 09:00 Resp 14 04/24/19 09:00 BP 108/72 04/24/19 09:00 Pulse Ox 95 04/24/19 09:00 Weight - Most Recent: 118.025 kg I&O - Last 24 Hours: Intake & Output 04/23/19 04/24/19 04/24/19 22:59 06:59 14:59 Intake Total 2593 Balance 2593 Lab Results Last 24 Hours: Laboratory Results - last 24 hr 04/23/19 04/23/19 04/23/19 Range/Units 17:00 17:00 17:00 WBC 20.0 H (4.5-12.0) X10-3/uL RBC 5.10 (3.23-5.20) x10(6)uL Hgb 14.4 (11.5-15.5) g/dL Hct 42.9 (30.0-51.3) % MCV 84.0 (80-96) fL MCH 28.2 (27.7-33.6) pg MCHC 33.5 (32.2-35.4) g/dL RDW 12.7 (11.5-15.5) % Plt Count 157 (125-369) X10(3)uL MPV 11.7 H (7.4-10.4) fL Add Manual Diff Yes Neutrophils % (Manual) 79 (46-82) % Band Neutrophils % 5 (0-6) % Lymphocytes % (Manual) 7 L (13-37) % Monocytes % (Manual) 9 (4-12) % Eosinophils % (Manual) (0-5) % Hypersegmented Neuts Toxic Granulation Few H (NOT SEEN) Sodium 130 L D (135-145) mmol/L Potassium 3.2 L (3.5-5.3) mmol/L Chloride 95 L D (100-110) mmol/L Carbon Dioxide 22 (21-32) mmol/L BUN 11 (7-18) mg/dL Creatinine 0.8 (0.55-1.02) mg/dL Est Cr Clr Drug Dosing 99.01 mL/min Estimated GFR (MDRD) > 60 (>60) BUN/Creatinine Ratio 13.8 (9-20) Glucose 491 H* D (80-116) mg/dL POC Glucose (80-116) mg/dL Calcium 8.8 (8.6-10.2) mg/dL Total Bilirubin 0.5 (0.1-1.3) mg/dL AST 16 D (5-25) IU/L ALT 26 D (12-36) U/L Alkaline Phosphatase 193 H (56-112) IU/L C-Reactive Protein 20.9 H* (0.5-0.9) mg/dL Total Protein 6.9 (6.0-8.0) g/dL Albumin 2.2 L (3.5-5.2) g/dL Globulin 4.7 g/dL Albumin/Globulin Ratio 0.5 Urine Color (YELLOW) Urine Appearance (CLEAR) Urine pH (5.0-6.5) Ur Specific [place] (1.010-1.025) Urine Protein (NEGATIVE) mg/dL Urine Glucose (UA) (NORMAL) mg/dL Urine Ketones (NEGATIVE) mg/dL Urine Occult Blood (NEGATIVE) Urine Nitrite (NEGATIVE) Urine Bilirubin (NEGATIVE) Urine Urobilinogen (NEGATIVE) mg/dL Ur Leukocyte Esterase (NEGATIVE) Urine RBC (0-5) Urine WBC (0-5) Ur Squamous Epith Cells (NS,R,O) Amorphous Sediment Urine Bacteria (NS) 04/23/19 04/23/19 04/23/19 Range/Units 17:20 21:31 21:40 WBC (4.5-12.0) X10-3/uL RBC (3.23-5.20) x10(6)uL Hgb (11.5-15.5) g/dL Hct (30.0-51.3) % MCV (80-96) fL MCH (27.7-33.6) pg MCHC (32.2-35.4) g/dL RDW (11.5-15.5) % Plt Count (125-369) X10(3)uL MPV (7.4-10.4) fL Add Manual Diff Neutrophils % (Manual) (46-82) % Band Neutrophils % (0-6) % Lymphocytes % (Manual) (13-37) % Monocytes % (Manual) (4-12) % Eosinophils % (Manual) (0-5) % Hypersegmented Neuts Toxic Granulation (NOT SEEN) Sodium (135-145) mmol/L Potassium (3.5-5.3) mmol/L Chloride (100-110) mmol/L Carbon Dioxide (21-32) mmol/L BUN (7-18) mg/dL Creatinine (0.55-1.02) mg/dL Est Cr Clr Drug Dosing mL/min Estimated GFR (MDRD) (>60) BUN/Creatinine Ratio (9-20) Glucose 426 H* (80-116) mg/dL POC Glucose 420 H* (80-116) mg/dL Calcium (8.6-10.2) mg/dL Total Bilirubin (0.1-1.3) mg/dL AST (5-25) IU/L ALT (12-36) U/L Alkaline Phosphatase (56-112) IU/L C-Reactive Protein (0.5-0.9) mg/dL Total Protein (6.0-8.0) g/dL Albumin (3.5-5.2) g/dL Globulin g/dL Albumin/Globulin Ratio Urine Color Yellow (YELLOW) Urine Appearance Clear (CLEAR) Urine pH 6.0 (5.0-6.5) Ur Specific [place] 1.005 L (1.010-1.025) Urine Protein Trace (NEGATIVE) mg/dL Urine Glucose (UA) >1000 H (NORMAL) mg/dL Urine Ketones 50 H (NEGATIVE) mg/dL Urine Occult Blood Large H (NEGATIVE) Urine Nitrite Negative (NEGATIVE) Urine Bilirubin Negative (NEGATIVE) Urine Urobilinogen Normal (NEGATIVE) mg/dL Ur Leukocyte Esterase Small H (NEGATIVE) Urine RBC 0-5 (0-5) Urine WBC 5-10 H (0-5) Ur Squamous Epith Cells Occasional (NS,R,O) Amorphous Sediment Few Urine Bacteria Few H (NS) 04/24/19 04/24/19 04/24/19 Range/Units 06:25 06:25 11:45 WBC 17.0 H (4.5-12.0) X10-3/uL RBC 4.98 (3.23-5.20) x10(6)uL Hgb 14.1 (11.5-15.5) g/dL Hct 41.8 (30.0-51.3) % MCV 83.9 (80-96) fL MCH 28.3 (27.7-33.6) pg MCHC 33.7 (32.2-35.4) g/dL RDW 12.4 (11.5-15.5) % Plt Count 133 (125-369) X10(3)uL MPV 10.1 (7.4-10.4) fL Add Manual Diff Yes Neutrophils % (Manual) 74 (46-82) % Band Neutrophils % 4 (0-6) % Lymphocytes % (Manual) 14 (13-37) % Monocytes % (Manual) 7 (4-12) % Eosinophils % (Manual) 1 (0-5) % Hypersegmented Neuts Few Toxic Granulation Moderate H (NOT SEEN) Sodium 135 (135-145) mmol/L Potassium 3.1 L (3.5-5.3) mmol/L Chloride 100 D (100-110) mmol/L Carbon Dioxide 23 (21-32) mmol/L BUN 7 (7-18) mg/dL Creatinine 0.6 (0.55-1.02) mg/dL Est Cr Clr Drug Dosing 132.02 mL/min Estimated GFR (MDRD) > 60 (>60) BUN/Creatinine Ratio 11.7 (9-20) Glucose 292 H D (80-116) mg/dL POC Glucose 354 H (80-116) mg/dL Calcium 8.1 L (8.6-10.2) mg/dL Total Bilirubin (0.1-1.3) mg/dL AST (5-25) IU/L ALT (12-36) U/L Alkaline Phosphatase (56-112) IU/L C-Reactive Protein (0.5-0.9) mg/dL Total Protein (6.0-8.0) g/dL Albumin (3.5-5.2) g/dL Globulin g/dL Albumin/Globulin Ratio Urine Color (YELLOW) Urine Appearance (CLEAR) Urine pH (5.0-6.5) Ur Specific [place] (1.010-1.025) Urine Protein (NEGATIVE) mg/dL Urine Glucose (UA) (NORMAL) mg/dL Urine Ketones (NEGATIVE) mg/dL Urine Occult Blood (NEGATIVE) Urine Nitrite (NEGATIVE) Urine Bilirubin (NEGATIVE) Urine Urobilinogen (NEGATIVE) mg/dL Ur Leukocyte Esterase (NEGATIVE) Urine RBC (0-5) Urine WBC (0-5) Ur Squamous Epith Cells (NS,R,O) Amorphous Sediment Urine Bacteria (NS) Richar Results Last 24 Hours: Microbiology 04/23/19 16:32 Gram Stain - Final Drainage - Buttock, Left Med Orders - Current: Current Medications Acetaminophen (Tylenol) 650 mg PO Q4H PRN PRN Reason: Pain (Mild 1-3)/fever Last Admin: 04/24/19 06:30 Dose: 650 mg Enoxaparin Sodium (Lovenox) 40 mg SUBCUT Q24H [facility] Last Admin: 04/23/19 18:20 Dose: 40 mg Hydromorphone HCl (Dilaudid) 0.25 mg IVPUSH Q2H PRN PRN Reason: Pain (severe 7-10) Last Admin: 04/24/19 12:14 Dose: 0.25 mg Hydroxyzine Pamoate (Vistaril) 50 - 100 mg PO BID PRN PRN Reason: Anxiety Promethazine HCl 12.5 mg/ (Sodium Chloride) 50.5 mls @ 200 mls/hr IV Q6H PRN PRN Reason: Nausea/Vomiting Sodium Chloride (Normal Saline) 1,000 mls @ 125 mls/hr IV ASDIRECTED [facility] Last Admin: 04/24/19 06:32 Dose: 125 mls/hr Ceftriaxone Sodium 2 gm/ (Sodium Chloride) 50 mls @ 200 mls/hr IV Q24H [facility] Last Admin: 04/23/19 20:19 Dose: 200 mls/hr Vancomycin HCl 2 gm/ Sodium (Chloride) 500 mls @ 250 mls/hr IV Q12H [facility] Last Admin: 04/24/19 09:34 Dose: 250 mls/hr Insulin Human Lispro (Humalog) 15 unit SUBCUT TIDMEALS [facility] Last Admin: 04/24/19 12:18 Dose: 15 units Insulin Human Lispro (Humalog) 0 unit SUBCUT TIDMEALS [facility]; Protocol Last Admin: 04/24/19 12:18 Dose: 5 units Ketorolac Tromethamine (Toradol) 30 mg IVPUSH Q6H PRN PRN Reason: Pain (moderate 4-6) Last Admin: 04/24/19 06:29 Dose: 30 mg Nicotine (Habitrol) 7 mg TRDERM DAILY [facility] Last Admin: 04/24/19 09:33 Dose: Not Given Non-Formulary Medication (Eszopiclone [Eszopiclone]) 3 mg PO BEDTIME PRN PRN Reason: Insomnia Non-Formulary Medication (Insulin Degludec [Tresiba Flextouch U-100]) 50 unit SQ DAILY [facility] Ondansetron HCl (Zofran Odt) 4 mg PO Q4H PRN PRN Reason: nausea, able to take PO Pantoprazole Sodium (Protonix) 40 mg PO ACBREAKFAST [facility] Pregabalin (Lyrica) 300 mg PO BID [facility] Last Admin: 04/24/19 12:30 Dose: 300 mg Sodium Chloride (Saline Flush) 10 ml FLUSH ASDIRECTED PRN PRN Reason: Keep Vein Open Last Admin: 04/24/19 12:17 Dose: 10 ml Vancomycin HCl (Pharmacy To Dose - Vancomycin) 0 dose .XX DAILY [facility] Discontinued Medications Ciprofloxacin/Dextrose 400 mg/ (Premix) 200 mls @ 200 mls/hr IV Q12H [facility] Last Admin: 04/23/19 18:11 Dose: 200 mls/hr Metronidazole 500 mg/ Premix 100 mls @ 100 mls/hr IV Q6H [facility] Last Admin: 04/23/19 22:16 Dose: Not Given Sodium Chloride (Normal Saline) 1,000 mls @ 999 mls/hr IV ONETIME ONE Stop: 04/23/19 20:07 Last Admin: 04/23/19 19:19 Dose: 999 mls/hr Vancomycin HCl 1 gm/ Sodium (Chloride) 250 mls @ 167 mls/hr IV Q12H [facility] Last Admin: 04/23/19 22:15 Dose: Not Given Vancomycin HCl 2 gm/ Sodium (Chloride) 250 mls @ 167 mls/hr IV Q12H [facility] Last Admin: 04/23/19 22:14 Dose: Not Given Vancomycin HCl 2 gm/ Sodium (Chloride) 500 mls @ 334.014 mls/hr IV Q12H [facility] Last Admin: 04/23/19 21:20 Dose: 334.014 mls/hr Insulin Human Regular (Humulin R) 5 unit IV ONETIME ONE Stop: 04/23/19 19:07 Last Admin: 04/23/19 19:27 Dose: 5 units Insulin Human Regular (Humulin R) 10 unit SUBCUT ONETIME ONE Stop: 04/23/19 22:10 Last Admin: 04/23/19 22:54 Dose: 10 units Iopamidol (Isovue-370 (76%)) 100 ml IV ONETIME ONE Stop: 04/24/19 08:28 Last Admin: 04/24/19 08:38 Dose: 100 ml - Exam General: Alert, Oriented, Cooperative, No Acute Distress Lungs: Clear to Auscultation, Normal Respiratory Effort Cardiovascular: Regular Rate, Regular Rhythm GI/Abdominal Exam: Normal Bowel Sounds, Soft, No Distention, Tender Wound/Incisions: Drainage (still lot of foul drainage, blood-tinged), Erythema Improving (receded from skin markings, still induration more right than left, TTP) - Problem List & Annotations (1) Cellulitis and abscess of buttock SNOMED Code(s): 798258084 Code(s): L02.31 - CUTANEOUS ABSCESS OF BUTTOCK; L03.317 - CELLULITIS OF BUTTOCK Status: Acute Current Visit: Yes (2) Nausea & vomiting SNOMED Code(s): 69839582 Code(s): R11.2 - NAUSEA WITH VOMITING, UNSPECIFIED Status: Resolved Current Visit: Yes (3) Fever SNOMED Code(s): 534112838 Code(s): R50.9 - FEVER, UNSPECIFIED Status: Resolved Current Visit: Yes (4) Fibromyalgia SNOMED Code(s): 167949810 Code(s): M79.7 - FIBROMYALGIA Status: Acute Current Visit: Yes (5) Diabetes mellitus with insulin therapy SNOMED Code(s): 709874363 Code(s): E11.9 - TYPE 2 DIABETES MELLITUS WITHOUT COMPLICATIONS; Z79.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) USE OF 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 Status: Acute Current Visit: Yes - Problem List Review Problem List Initiated/Reviewed/Updated: Yes - My Orders Last 24 Hours: My Active Orders 04/23/19 16:32 Patient Status [ADT] Routine Antiembolic Devices [RC] .Routine Blood Glucose Check, Bedside [RC] WITHMEALSANDBED May Shower [RC] ASDIRECTED Oxygen Therapy [RC] PRN Peripheral IV Care [RC] 08,16,00 Up ad Mikayla [RC] ASDIRECTED VTE/DVT Education [RC] Per Unit Routine Vital Signs [RC] 08,12,16,20 CULTURE ROUTINE + SMEAR [RM] Routine Acetaminophen [Tylenol] 650 mg PO Q4H PRN HYDROmorphone [Dilaudid] 0.25 mg IVPUSH Q2H PRN Ketorolac [Toradol] 30 mg IVPUSH Q6H PRN Ondansetron [Zofran ODT] 4 mg PO Q4H PRN Promethazine [Phenergan] 12.5 mg Sodium Chloride 0.9% [Normal Saline] 50 ml IV Q6H Sodium Chloride 0.9% [Saline Flush] 10 ml FLUSH ASDIRECTED PRN Blood Culture x2 Reflex Set [OM.PC] Urgent Peripheral IV Insertion Adult [OM.PC] Routine Resuscitation Status Routine 04/23/19 16:34 Ambulate [RC] PER UNIT ROUTINE Antiembolic Hose [OM.PC] Per Unit Routine 04/23/19 16:45 Nicotine [Habitrol] 7 mg TRDERM DAILY Sodium Chloride 0.9% [Normal Saline] 1,000 ml IV ASDIRECTED 04/23/19 17:00 CULTURE BLOOD [BC] Urgent CULTURE BLOOD [BC] Urgent Enoxaparin [Lovenox] 40 mg SUBCUT Q24H 04/23/19 17:20 CULTURE URINE [RM] Routine 04/23/19 Dinner Consistent Carbohydrate Diet [DIET] 04/24/19 09:00 Eszopiclone [Eszopiclone] 3 mg PO BEDTIME PRN Insulin Degludec [Tresiba Flextouch U-100] 50 unit SQ DAILY Pharmacy to Dose - Vancomycin 0 dose .XX DAILY hydrOXYzine pamoate [Vistaril] 50 - 100 mg PO BID PRN 04/24/19 12:00 Insulin Lispro [HumaLOG] See Protocol SUBCUT TIDMEALS 04/24/19 12:15 Insulin Lispro [HumaLOG] 15 unit SUBCUT TIDMEALS Pregabalin [Lyrica] 300 mg PO BID 04/24/19 13:02 Preg Urine [HCG QUALITATIVE,URINE] [URCHEM] Routine 04/25/19 07:30 Pantoprazole [ProTONIX] 40 mg PO ACBREAKFAST 04/25/19 08:00 Pelvis wo Cont [MR] Routine 04/25/19 08:30 BASIC METABOLIC PANEL,BMP [CHEM] Routine CBC WITH AUTO DIFF [HEME] Routine VANCOMYCIN TROUGH [CHEM] Timed - Plan Plan:: CT report from this morning showed extensive soft tissue thickening, emphysema and inflammatory changes within the gluteal regions and perianal regions compatible with an underlying soft tissue infection. No focal fluid collection is visualized to suggest a drainable abscess. MRI would be of benefit to better evaluate for a perianal fistula or small abscess. MRI not available today will get in the morning. Repeat labs. Culture had gram positive cocci and gram negative rods, will continue antibiotics until ID/RICHAR is back.
[2019-04-24] MEDS ORDERED: Insulin Glargine,Human Rec. Analog 100 Units/ML 3 ML Pen SUBCUT SCH (14:00)
[2019-04-24] MEDS: Enoxaparin 40 MG/0.4 ML Syringe SUBCUT SCH (17:31)
[2019-04-24] MEDS: Loperamide 2 MG Cap PO PRN (19:21)
[2019-04-24] MEDS ORDERED: cefTRIAXone 2 GM Vial ONE (20:02)
[2019-04-24] MEDS: cefTRIAXone 2 GM in Sodium Chloride 0.9% 50 ML IV SCH (20:24)
[2019-04-24] MEDS: Saccharomyces Boulardii (Probiotic) 250 MG Cap PO SCH (20:45)
[2019-04-25] MEDS: HYDROmorphone 2 MG/ML SDV IVPUSH PRN ×5 (00:58→20:24)
[2019-04-25] MEDS: Ketorolac 30 MG/ML SDV IVPUSH PRN ×4 (00:59→21:34)
[2019-04-25] MEDS: Sodium Chloride 0.9% 1,000 ML IV SCH (04:23)
[2019-04-25] MEDS: Insulin Lispro 100 Unit/ML 3 ML KwikPen SUBCUT SCH ×6 (08:08→17:05)
[2019-04-25] MEDS: Insulin Glargine,Human Rec. Analog 100 Units/ML 3 ML Pen SUBCUT SCH (08:08)
[2019-04-25] MEDS: Saccharomyces Boulardii (Probiotic) 250 MG Cap PO SCH ×2 (09:10→20:24)
[2019-04-25] MEDS: Pantoprazole 40 MG Tab.CR PO SCH (09:10)
[2019-04-25] MEDS: Nicotine 7 MG/24 Hr Patch TRDERM SCH (09:10)
[2019-04-25] MEDS: Sodium Chloride 0.9% 10 ML Syringe FLUSH PRN ×5 (09:11→21:34)
[2019-04-25] MEDS: Pregabalin 100 MG Cap PO SCH ×2 (10:17→20:32)
[2019-04-25] MEDS: Loperamide 2 MG Cap PO PRN (10:18)
[2019-04-25] MEDS: Vancomycin 2 GM in Sodium Chloride 0.9% 500 ML IV SCH (10:50)
[2019-04-25] MEDS ORDERED: Gadoteridol 279.3 MG/ML 20 ML SDV IV ONE (11:03)
--- NOTE | 2019-04-25 14:33 | PCM.PN ---
- General Info Date of Service: 04/25/19 Admission Dx/Problem (Free Text): Patient is feeling a little better, coughing but declined nicotine patch, states she always coughs in the mornings. Started her period yesterday, states she does usually have diarrhea with it. Stool cultures were done yesterday and adding Imodium and probiotics. CT did not show focal fluid collection but recommended MRI to rule out fistula. No fevers. - Patient Data Vitals - Most Recent: Last Vital Signs Temp 36.6 C 04/25/19 12:00 Pulse 100 04/25/19 12:00 Resp 14 04/25/19 12:00 BP 116/77 04/25/19 12:00 Pulse Ox 95 04/25/19 12:00 Weight - Most Recent: 118.025 kg I&O - Last 24 Hours: Intake & Output 04/24/19 04/25/19 04/25/19 22:59 06:59 14:59 Intake Total 773 1036 300 Balance 773 1036 300 Lab Results Last 24 Hours: Laboratory Results - last 24 hr 04/23/19 04/24/19 04/24/19 Range/Units 16:30 16:57 20:45 WBC (4.5-12.0) X10-3/uL RBC (3.23-5.20) x10(6)uL Hgb (11.5-15.5) g/dL Hct (30.0-51.3) % MCV (80-96) fL MCH (27.7-33.6) pg MCHC (32.2-35.4) g/dL RDW (11.5-15.5) % Plt Count (125-369) X10(3)uL MPV (7.4-10.4) fL Add Manual Diff Neutrophils % (Manual) (46-82) % Band Neutrophils % (0-6) % Lymphocytes % (Manual) (13-37) % Monocytes % (Manual) (4-12) % Eosinophils % (Manual) (0-5) % Toxic Granulation (NOT SEEN) Sodium (135-145) mmol/L Potassium (3.5-5.3) mmol/L Chloride (100-110) mmol/L Carbon Dioxide (21-32) mmol/L BUN (7-18) mg/dL Creatinine (0.55-1.02) mg/dL Est Cr Clr Drug Dosing mL/min Estimated GFR (MDRD) (>60) BUN/Creatinine Ratio (9-20) Glucose (80-116) mg/dL POC Glucose 345 H 317 H (80-116) mg/dL Calcium (8.6-10.2) mg/dL Urine HCG, Qual Negative (NEGATIVE) Vancomycin Trough (<0.8) ug/mL 04/25/19 04/25/19 04/25/19 Range/Units 06:52 08:30 08:30 WBC 15.4 H (4.5-12.0) X10-3/uL RBC 5.27 H (3.23-5.20) x10(6)uL Hgb 14.9 (11.5-15.5) g/dL Hct 44.1 (30.0-51.3) % MCV 83.6 (80-96) fL MCH 28.2 (27.7-33.6) pg MCHC 33.7 (32.2-35.4) g/dL RDW 12.8 (11.5-15.5) % Plt Count 185 (125-369) X10(3)uL MPV 10.6 H (7.4-10.4) fL Add Manual Diff Yes Neutrophils % (Manual) 78 (46-82) % Band Neutrophils % 2 (0-6) % Lymphocytes % (Manual) 10 L (13-37) % Monocytes % (Manual) 9 (4-12) % Eosinophils % (Manual) 1 (0-5) % Toxic Granulation Few H (NOT SEEN) Sodium 135 (135-145) mmol/L Potassium 3.1 L (3.5-5.3) mmol/L Chloride 100 (100-110) mmol/L Carbon Dioxide 26 (21-32) mmol/L BUN 4 L (7-18) mg/dL Creatinine 0.7 (0.55-1.02) mg/dL Est Cr Clr Drug Dosing 113.16 mL/min Estimated GFR (MDRD) > 60 (>60) BUN/Creatinine Ratio 5.7 L (9-20) Glucose 334 H (80-116) mg/dL POC Glucose 284 H (80-116) mg/dL Calcium 8.3 L (8.6-10.2) mg/dL Urine HCG, Qual (NEGATIVE) Vancomycin Trough 5.3 (<0.8) ug/mL 04/25/19 Range/Units 12:11 WBC (4.5-12.0) X10-3/uL RBC (3.23-5.20) x10(6)uL Hgb (11.5-15.5) g/dL Hct (30.0-51.3) % MCV (80-96) fL MCH (27.7-33.6) pg MCHC (32.2-35.4) g/dL RDW (11.5-15.5) % Plt Count (125-369) X10(3)uL MPV (7.4-10.4) fL Add Manual Diff Neutrophils % (Manual) (46-82) % Band Neutrophils % (0-6) % Lymphocytes % (Manual) (13-37) % Monocytes % (Manual) (4-12) % Eosinophils % (Manual) (0-5) % Toxic Granulation (NOT SEEN) Sodium (135-145) mmol/L Potassium (3.5-5.3) mmol/L Chloride (100-110) mmol/L Carbon Dioxide (21-32) mmol/L BUN (7-18) mg/dL Creatinine (0.55-1.02) mg/dL Est Cr Clr Drug Dosing mL/min Estimated GFR (MDRD) (>60) BUN/Creatinine Ratio (9-20) Glucose (80-116) mg/dL POC Glucose 308 H (80-116) mg/dL Calcium (8.6-10.2) mg/dL Urine HCG, Qual (NEGATIVE) Vancomycin Trough (<0.8) ug/mL Richar Results Last 24 Hours: Microbiology 04/23/19 16:32 Gram Stain - Final Drainage - Buttock, Left Routine Culture - Preliminary Gram Positive Cocci 04/23/19 17:00 Aerobic Blood Culture - Preliminary Blood - Venous - Lab Draw NO GROWTH AFTER 1 DAY Anaerobic Blood Culture - Preliminary NO GROWTH AFTER 1 DAY 04/23/19 17:00 Aerobic Blood Culture - Preliminary Blood - Venous NO GROWTH AFTER 1 DAY Anaerobic Blood Culture - Preliminary NO GROWTH AFTER 1 DAY 04/23/19 17:20 Urine Culture - Preliminary Urine, Clean Catch MIXED KOREY DAY 1 Med Orders - Current: Current Medications Acetaminophen (Tylenol) 650 mg PO Q4H PRN PRN Reason: Pain (Mild 1-3)/fever Last Admin: 04/24/19 06:30 Dose: 650 mg Ceftriaxone Sodium (Rocephin) 2 gm IVPUSH Q24H [facility] Enoxaparin Sodium (Lovenox) 40 mg SUBCUT Q24H [facility] Last Admin: 04/24/19 17:31 Dose: 40 mg Hydromorphone HCl (Dilaudid) 0.25 mg IVPUSH Q2H PRN PRN Reason: Pain (severe 7-10) Last Admin: 04/25/19 11:58 Dose: 0.25 mg Hydroxyzine Pamoate (Vistaril) 50 - 100 mg PO BID PRN PRN Reason: Anxiety Promethazine HCl 12.5 mg/ (Sodium Chloride) 50.5 mls @ 200 mls/hr IV Q6H PRN PRN Reason: Nausea/Vomiting Sodium Chloride (Normal Saline) 1,000 mls @ 125 mls/hr IV ASDIRECTED [facility] Last Admin: 04/25/19 04:23 Dose: 125 mls/hr Linezolid (Zyvox) 300 mls @ 300 mls/hr IV Q12H [facility] Last Admin: 04/25/19 11:58 Dose: 300 mls/hr Insulin Glargine (Lantus Solostar) 50 units SUBCUT DAILY [facility] Last Admin: 04/25/19 08:08 Dose: 50 units Insulin Human Lispro (Humalog) 0 unit SUBCUT TIDMEALS [facility]; Protocol Last Admin: 04/25/19 12:39 Dose: 4 units Insulin Human Lispro (Humalog) 15 unit SUBCUT TIDMEALS [facility] Last Admin: 04/25/19 12:38 Dose: 15 units Ketorolac Tromethamine (Toradol) 30 mg IVPUSH Q6H PRN PRN Reason: Pain (moderate 4-6) Last Admin: 04/25/19 09:09 Dose: 30 mg Loperamide HCl (Imodium) 2 mg PO Q6H PRN PRN Reason: Diarrhea Last Admin: 04/25/19 10:18 Dose: 2 mg Nicotine (Habitrol) 7 mg TRDERM DAILY [facility] Last Admin: 04/25/19 09:10 Dose: Not Given (Eszopiclone [ Eszopiclone] 3 Mg)* Pt Own Med* 3 mg PO BEDTIME PRN PRN Reason: Insomnia Ondansetron HCl (Zofran Odt) 4 mg PO Q4H PRN PRN Reason: nausea, able to take PO Pantoprazole Sodium (Protonix) 40 mg PO ACBREAKFAST [facility] Last Admin: 04/25/19 09:10 Dose: 40 mg Pregabalin (Lyrica) 300 mg PO BID [facility] Last Admin: 04/25/19 10:17 Dose: 300 mg Saccharomyces Boulardii (Florastor) 250 mg PO BID [facility] Last Admin: 04/25/19 09:10 Dose: 250 mg Sodium Chloride (Saline Flush) 10 ml FLUSH ASDIRECTED PRN PRN Reason: Keep Vein Open Last Admin: 04/25/19 11:59 Dose: 10 ml Discontinued Medications Ceftriaxone Sodium (Rocephin) Confirm Administered Dose 2 gm .ROUTE .STK-MED ONE Stop: 04/24/19 20:03 Last Admin: 04/24/19 20:24 Dose: Not Given Gadoteridol (Prohance) 20 ml IV . DIRECTED ONE Stop: 04/25/19 11:04 Last Admin: 04/25/19 11:48 Dose: 20 ml Ciprofloxacin/Dextrose 400 mg/ (Premix) 200 mls @ 200 mls/hr IV Q12H [facility] Last Admin: 04/23/19 18:11 Dose: 200 mls/hr Metronidazole 500 mg/ Premix 100 mls @ 100 mls/hr IV Q6H [facility] Last Admin: 04/23/19 22:16 Dose: Not Given Sodium Chloride (Normal Saline) 1,000 mls @ 999 mls/hr IV ONETIME ONE Stop: 04/23/19 20:07 Last Admin: 04/23/19 19:19 Dose: 999 mls/hr Ceftriaxone Sodium 2 gm/ (Sodium Chloride) 50 mls @ 200 mls/hr IV Q24H [facility] Last Admin: 04/24/19 20:24 Dose: 200 mls/hr Vancomycin HCl 1 gm/ Sodium (Chloride) 250 mls @ 167 mls/hr IV Q12H [facility] Last Admin: 04/23/19 22:15 Dose: Not Given Vancomycin HCl 2 gm/ Sodium (Chloride) 250 mls @ 167 mls/hr IV Q12H [facility] Last Admin: 04/23/19 22:14 Dose: Not Given Vancomycin HCl 2 gm/ Sodium (Chloride) 500 mls @ 334.014 mls/hr IV Q12H [facility] Last Admin: 04/23/19 21:20 Dose: 334.014 mls/hr Vancomycin HCl 2 gm/ Sodium (Chloride) 500 mls @ 250 mls/hr IV Q12H [facility] Last Admin: 04/25/19 10:50 Dose: Not Given Insulin Glargine (Lantus Solostar) 50 units SUBCUT DAILY [facility] Last Admin: 04/24/19 14:18 Dose: 50 units Insulin Human Lispro (Humalog) 15 unit SUBCUT TIDMEALS [facility] Last Admin: 04/25/19 10:49 Dose: Not Given Insulin Human Regular (Humulin R) 5 unit IV ONETIME ONE Stop: 04/23/19 19:07 Last Admin: 04/23/19 19:27 Dose: 5 units Insulin Human Regular (Humulin R) 10 unit SUBCUT ONETIME ONE Stop: 04/23/19 22:10 Last Admin: 04/23/19 22:54 Dose: 10 units Iopamidol (Isovue-370 (76%)) 100 ml IV ONETIME ONE Stop: 04/24/19 08:28 Last Admin: 04/24/19 08:38 Dose: 100 ml - Exam General: Alert, Oriented, Cooperative, No Acute Distress Lungs: Clear to Auscultation, Normal Respiratory Effort Cardiovascular: Regular Rate, Regular Rhythm GI/Abdominal Exam: Normal Bowel Sounds, Soft, Non-Tender, No Distention Wound/Incisions: Drainage, Erythema Improving (erythema within gluteal fold, still induration in bilateral buttock) - Problem List & Annotations (1) Cellulitis and abscess of buttock SNOMED Code(s): 030105793 Code(s): L02.31 - CUTANEOUS ABSCESS OF BUTTOCK; L03.317 - CELLULITIS OF BUTTOCK Status: Acute Current Visit: Yes (2) Nausea & vomiting SNOMED Code(s): 15426784 Code(s): R11.2 - NAUSEA WITH VOMITING, UNSPECIFIED Status: Resolved Current Visit: Yes (3) Fever SNOMED Code(s): 436459946 Code(s): R50.9 - FEVER, UNSPECIFIED Status: Resolved Current Visit: Yes (4) Fibromyalgia SNOMED Code(s): 722107083 Code(s): M79.7 - FIBROMYALGIA Status: Acute Current Visit: Yes (5) Diabetes mellitus with insulin therapy SNOMED Code(s): 832894639 Code(s): E11.9 - TYPE 2 DIABETES MELLITUS WITHOUT COMPLICATIONS; Z79.4 - ASSISTED (CURRENT) USE OF INSULIN Status: Acute Current Visit: Yes (6) Hypokalemia SNOMED Code(s): 29512426 Code(s): E87.6 - HYPOKALEMIA Status: Acute Current Visit: Yes - Problem List Review Problem List Initiated/Reviewed/Updated: Yes - My Orders Last 24 Hours: My Active Orders 04/24/19 16:56 Loperamide [Imodium] 2 mg PO Q6H PRN 04/24/19 19:03 STOOL CULTURE Routine 04/24/19 21:00 Saccharomyces Boulardii [Florastor] 250 mg PO BID 04/25/19 07:30 Pantoprazole [ProTONIX] 40 mg PO ACBREAKFAST 04/25/19 08:00 Pelvis w wo Cont [MR] Routine 04/25/19 08:01 Insulin Lispro [HumaLOG] 15 unit SUBCUT TIDMEALS 04/25/19 08:02 Insulin Glarg,Human.Rec.Analog [LantUS Solostar] 50 units SUBCUT DAILY 04/25/19 10:00 Linezolid [Zyvox] 300 ml IV Q12H - Plan Plan:: MRI today, results pending. Labs improved, WBC down to 15. Wound culture gram positive cocci. Vancomycin 2 grams did not get her to a therapeutic trough for skin infections so she was switched to Linezolid 600 mg IV bid. Blood cultures negative to date. Repeat labs tomorrow with CRP. Adjust treatments once we get MRI results. Potassium 3.1, will replace and recheck.
[2019-04-25] MEDS: metroNIDAZOLE/Normal Saline 500 MG in Premix Bag 1 BAG IV SCH (16:55)
[2019-04-25] MEDS: Enoxaparin 40 MG/0.4 ML Syringe SUBCUT SCH (17:04)
--- NOTE | 2019-04-25 17:26 | CONS ---
DATE OF CONSULTATION: 04/25/2019 HISTORY: This 33-year-old diabetic female was admitted through the outpatient clinic 2 days ago with development of pain, redness, and drainage from the perirectal area. The patient has been treated with antibiotics. There has been continued purulent drainage from the area of concern. The patient notes that the pain continues for her, although she does state that things are still significantly improved now compared to what they were 2 days ago upon her admission. She has a history of recurring abscesses in the area of her thigh, but has not had a previous abscess in the buttocks area. With the continued drainage, the patient underwent a CT scan and then MRI of the perirectal area. Today's MRI has been interpreted as showing evidence of a complex abscess in the perirectal region posteriorly. The patient is able to sit, although notes that it is painful when she applies pressure to the area. PAST MEDICAL HISTORY: Her past medical history includes uopkxoqsh-[id number] insulin-dependent diabetes as well as bipolar disorder and depression. She has been diagnosed as well with fibromyalgia. PAST SURGICAL HISTORY: Previous surgeries have included appendectomy, cholecystectomy, section, tonsillectomy. ALLERGIES: She is allergic to latex, Naprosyn, and penicillin. MEDICATIONS: Her home medications are reviewed in her electronic medical record. PHYSICAL EXAMINATION: GENERAL: Current examination shows an alert adult female. She is currently in no acute distress. VITAL SIGNS: Temperature is 98, pulse 100, blood pressure is 116/77, weight is 260 pounds. GENITOURINARY: Examination of the perirectal area shows erythema, primarily on the patient's right side extending from the region of the anus posteriorly. This erythema has receded compared to the demarcation line marked on the patient's skin 2 days ago. In the midline posterior to the anus, there is a skin opening which is currently approximately 5 x 2 cm in size. The underlying tissue was visible. There was some granulation tissue and a large amount of purulent drainage and some necrotic tissue noted. The purulent drainage was clean from the area and the necrotic tissue was sharply debrided. The underlying region was probed with cotton-tipped applicator and appeared to extend into multiple abscess cavities extending posteriorly, laterally, and anteriorly as well as to a lesser degree to the patient's left side. There is some induration of the tissue in this region, although I do not find evidence of significant retained abscess at this time. IMPRESSION: 1. Perirectal abscess with surrounding cellulitis which is spontaneously drained. 2. Insulin-dependent diabetes, poorly controlled. 3. Bipolar disorder with depression. RECOMMENDATIONS: Currently it appears that the perirectal abscess has drained spontaneously and there is a relatively large skin opening which appears to be adequate to allow any further necessary drainage to occur. The patient appears to have clinically and objectively improved since admission 2 days ago. It appears at this point that the abscess has already spontaneously drained adequately and I do not see a need for additional surgical intervention at this time. I would recommend keeping the area clean with shower/sitz baths. I encouraged the patient to mobilize and continue with aggressive antibiotic coverage as dictated by culture results. Thank you for allowing me to see this patient. /[id number] DUSTIN/GEORGE CAM
[2019-04-25] MEDS: Ciprofloxacin in D5W 400 MG in Premix Bag 1 BAG IV SCH ×2 (19:10)
[2019-04-25] MEDS ORDERED: cefTRIAXone 2 GM Vial IVPUSH SCH (19:30)
[2019-04-25] MEDS: Potassium Chloride 20 MEQ Tab.ER PO SCH (20:32)
[2019-04-25] MEDS ORDERED: Insulin Lispro 100 Unit/ML 3 ML KwikPen SUBCUT STA (21:22)
[2019-04-26] MEDS: metroNIDAZOLE/Normal Saline 500 MG in Premix Bag 1 BAG IV SCH ×3 (00:20→17:16)
[2019-04-26] MEDS: Sodium Chloride 0.9% 10 ML Syringe FLUSH PRN ×6 (00:20→18:23)
[2019-04-26] MEDS: HYDROmorphone 2 MG/ML SDV IVPUSH PRN (02:28)
[2019-04-26] MEDS: Ketorolac 30 MG/ML SDV IVPUSH PRN ×3 (04:22→17:15)
[2019-04-26] MEDS: Ciprofloxacin in D5W 400 MG in Premix Bag 1 BAG IV SCH ×4 (05:34→18:20)
[2019-04-26] MEDS: Pantoprazole 40 MG Tab.CR PO SCH ×2 (05:36→06:57)
[2019-04-26] MEDS: Acetaminophen/HYDROcodone 325-10 MG Tab PO PRN ×3 (08:23→20:44)
[2019-04-26] MEDS: Nicotine 7 MG/24 Hr Patch TRDERM SCH (08:24)
[2019-04-26] MEDS: Saccharomyces Boulardii (Probiotic) 250 MG Cap PO SCH ×2 (08:24→20:44)
[2019-04-26] MEDS: Pregabalin 100 MG Cap PO SCH ×2 (08:35→20:44)
[2019-04-26] MEDS: Potassium Chloride 20 MEQ Tab.ER PO SCH ×2 (08:35→20:44)
[2019-04-26] MEDS ORDERED: Magnesium Chloride 64 MG Tab.ER PO SCH (09:00)
[2019-04-26] MEDS: Insulin Glargine,Human Rec. Analog 100 Units/ML 3 ML Pen SUBCUT SCH (10:17)
[2019-04-26] MEDS: Insulin Lispro 100 Unit/ML 3 ML KwikPen SUBCUT SCH ×6 (10:18→17:15)
--- NOTE | 2019-04-26 10:31 | PCM.PN ---
- General Info Date of Service: 04/26/19 Admission Dx/Problem (Free Text): Patient had MRI yesterday which showed complex fistulas and abscess, Dr Bird examined patient and debrided area. Recommended shower/sitz baths twice a day, and follow up with surgery as outpatient. Discussed with her primary Dr Antonio, he recommended her following up with Dr Sctot first before she sees him. Culture grew staph auricularis sensitive to ciprofloxacin, with perirectal fistulas changed Rocephin to Metronidazole. Her blood sugars are still >200s, Lantus at 50 units, Humalog 15 units tid with meals, and 11 units with meals per sliding scale. Family is bringing food in for patient in addition to her meals. Afebrile, no nausea, vomiting, or diarrhea. Toradol is not helping for moderate pain. - Patient Data Vitals - Most Recent: Last Vital Signs Temp 36.7 C 04/25/19 20:00 Pulse 98 04/25/19 20:00 Resp 18 04/25/19 20:00 BP 112/68 04/25/19 20:00 Pulse Ox 97 04/25/19 20:00 Weight - Most Recent: 118.025 kg I&O - Last 24 Hours: Intake & Output 04/25/19 04/26/19 04/26/19 22:59 06:59 14:59 Intake Total 100 Balance 100 Lab Results Last 24 Hours: Laboratory Results - last 24 hr 04/25/19 04/25/19 04/25/19 Range/Units 12:11 16:54 21:05 WBC (4.5-12.0) X10-3/uL RBC (3.23-5.20) x10(6)uL Hgb (11.5-15.5) g/dL Hct (30.0-51.3) % MCV (80-96) fL MCH (27.7-33.6) pg MCHC (32.2-35.4) g/dL RDW (11.5-15.5) % Plt Count (125-369) X10(3)uL MPV (7.4-10.4) fL Add Manual Diff Neutrophils % (Manual) (46-82) % Band Neutrophils % (0-6) % Lymphocytes % (Manual) (13-37) % Monocytes % (Manual) (4-12) % Eosinophils % (Manual) (0-5) % Toxic Granulation (NOT SEEN) Sodium (135-145) mmol/L Potassium (3.5-5.3) mmol/L Chloride (100-110) mmol/L Carbon Dioxide (21-32) mmol/L BUN (7-18) mg/dL Creatinine (0.55-1.02) mg/dL Est Cr Clr Drug Dosing mL/min Estimated GFR (MDRD) (>60) BUN/Creatinine Ratio (9-20) Glucose (80-116) mg/dL POC Glucose 308 H 260 H 413 H* D (80-116) mg/dL Calcium (8.6-10.2) mg/dL Magnesium (1.8-2.5) mg/dL C-Reactive Protein (0.5-0.9) mg/dL 04/25/19 04/25/19 04/26/19 Range/Units 22:40 23:28 00:21 WBC (4.5-12.0) X10-3/uL RBC (3.23-5.20) x10(6)uL Hgb (11.5-15.5) g/dL Hct (30.0-51.3) % MCV (80-96) fL MCH (27.7-33.6) pg MCHC (32.2-35.4) g/dL RDW (11.5-15.5) % Plt Count (125-369) X10(3)uL MPV (7.4-10.4) fL Add Manual Diff Neutrophils % (Manual) (46-82) % Band Neutrophils % (0-6) % Lymphocytes % (Manual) (13-37) % Monocytes % (Manual) (4-12) % Eosinophils % (Manual) (0-5) % Toxic Granulation (NOT SEEN) Sodium (135-145) mmol/L Potassium (3.5-5.3) mmol/L Chloride (100-110) mmol/L Carbon Dioxide (21-32) mmol/L BUN (7-18) mg/dL Creatinine (0.55-1.02) mg/dL Est Cr Clr Drug Dosing mL/min Estimated GFR (MDRD) (>60) BUN/Creatinine Ratio (9-20) Glucose (80-116) mg/dL POC Glucose 328 H D 276 H 289 H (80-116) mg/dL Calcium (8.6-10.2) mg/dL Magnesium (1.8-2.5) mg/dL C-Reactive Protein (0.5-0.9) mg/dL 04/26/19 04/26/19 04/26/19 Range/Units 05:40 06:15 06:15 WBC 9.4 (4.5-12.0) X10-3/uL RBC 4.74 (3.23-5.20) x10(6)uL Hgb 12.9 (11.5-15.5) g/dL Hct 39.2 (30.0-51.3) % MCV 82.7 (80-96) fL MCH 27.3 L (27.7-33.6) pg MCHC 33.0 (32.2-35.4) g/dL RDW 12.6 (11.5-15.5) % Plt Count 163 (125-369) X10(3)uL MPV 10.0 (7.4-10.4) fL Add Manual Diff Yes Neutrophils % (Manual) 55 (46-82) % Band Neutrophils % 6 (0-6) % Lymphocytes % (Manual) 27 (13-37) % Monocytes % (Manual) 6 (4-12) % Eosinophils % (Manual) 6 H (0-5) % Toxic Granulation Few H (NOT SEEN) Sodium 140 (135-145) mmol/L Potassium 3.1 L (3.5-5.3) mmol/L Chloride 105 D (100-110) mmol/L Carbon Dioxide 29 (21-32) mmol/L BUN 4 L (7-18) mg/dL Creatinine 0.6 (0.55-1.02) mg/dL Est Cr Clr Drug Dosing 132.02 mL/min Estimated GFR (MDRD) > 60 (>60) BUN/Creatinine Ratio 6.7 L (9-20) Glucose 240 H D (80-116) mg/dL POC Glucose 229 H (80-116) mg/dL Calcium 8.1 L (8.6-10.2) mg/dL Magnesium (1.8-2.5) mg/dL C-Reactive Protein (0.5-0.9) mg/dL 04/26/19 04/26/19 Range/Units 06:15 06:15 WBC (4.5-12.0) X10-3/uL RBC (3.23-5.20) x10(6)uL Hgb (11.5-15.5) g/dL Hct (30.0-51.3) % MCV (80-96) fL MCH (27.7-33.6) pg MCHC (32.2-35.4) g/dL RDW (11.5-15.5) % Plt Count (125-369) X10(3)uL MPV (7.4-10.4) fL Add Manual Diff Neutrophils % (Manual) (46-82) % Band Neutrophils % (0-6) % Lymphocytes % (Manual) (13-37) % Monocytes % (Manual) (4-12) % Eosinophils % (Manual) (0-5) % Toxic Granulation (NOT SEEN) Sodium (135-145) mmol/L Potassium (3.5-5.3) mmol/L Chloride (100-110) mmol/L Carbon Dioxide (21-32) mmol/L BUN (7-18) mg/dL Creatinine (0.55-1.02) mg/dL Est Cr Clr Drug Dosing mL/min Estimated GFR (MDRD) (>60) BUN/Creatinine Ratio (9-20) Glucose (80-116) mg/dL POC Glucose (80-116) mg/dL Calcium (8.6-10.2) mg/dL Magnesium 1.7 L (1.8-2.5) mg/dL C-Reactive Protein 8.8 H* (0.5-0.9) mg/dL Richar Results Last 24 Hours: Microbiology 04/23/19 17:00 Aerobic Blood Culture - Preliminary Blood - Venous - Lab Draw NO GROWTH AFTER 2 DAYS Anaerobic Blood Culture - Preliminary NO GROWTH AFTER 2 DAYS 04/23/19 17:00 Aerobic Blood Culture - Preliminary Blood - Venous NO GROWTH AFTER 2 DAYS Anaerobic Blood Culture - Preliminary NO GROWTH AFTER 2 DAYS 04/23/19 16:32 Gram Stain - Final Drainage - Buttock, Left Routine Culture - Final Staphylococcus Auricularis 04/23/19 17:20 Urine Culture - Final Urine, Clean Catch MIXED KOREY DAY 2 Med Orders - Current: Current Medications Acetaminophen (Tylenol) 650 mg PO Q4H PRN PRN Reason: Pain (Mild 1-3)/fever Last Admin: 04/24/19 06:30 Dose: 650 mg Hydrocodone Bitart/Acetaminophen ([place] 325-10 Mg) 1 tab PO Q6H PRN PRN Reason: Pain (moderate 4-6) Last Admin: 04/26/19 08:23 Dose: 1 tab Enoxaparin Sodium (Lovenox) 40 mg SUBCUT Q24H [facility] Last Admin: 04/25/19 17:04 Dose: 40 mg Hydromorphone HCl (Dilaudid) 0.25 mg IVPUSH Q2H PRN PRN Reason: Pain (severe 7-10) Last Admin: 04/26/19 02:28 Dose: 0.25 mg Hydroxyzine Pamoate (Vistaril) 50 - 100 mg PO BID PRN PRN Reason: Anxiety Promethazine HCl 12.5 mg/ (Sodium Chloride) 50.5 mls @ 200 mls/hr IV Q6H PRN PRN Reason: Nausea/Vomiting Metronidazole 500 mg/ Premix 100 mls @ 100 mls/hr IV Q8H [facility] Last Admin: 04/26/19 08:37 Dose: 100 mls/hr Ciprofloxacin/Dextrose 400 mg/ (Premix) 200 mls @ 200 mls/hr IV Q12H [facility] Last Admin: 04/26/19 05:34 Dose: 200 mls/hr Insulin Glargine (Lantus Solostar) 50 units SUBCUT DAILY [facility] Last Admin: 04/26/19 10:17 Dose: 50 units Insulin Human Lispro (Humalog) 0 unit SUBCUT TIDMEALS [facility]; Protocol Last Admin: 04/26/19 10:18 Dose: 6 units Insulin Human Lispro (Humalog) 18 unit SUBCUT TIDMEALS [facility] Last Admin: 04/26/19 10:19 Dose: 18 units Ketorolac Tromethamine (Toradol) 30 mg IVPUSH Q6H PRN PRN Reason: Pain (moderate 4-6) Last Admin: 04/26/19 04:22 Dose: 30 mg Loperamide HCl (Imodium) 2 mg PO Q6H PRN PRN Reason: Diarrhea Last Admin: 04/25/19 10:18 Dose: 2 mg Magnesium Chloride (Mag-64) 128 mg PO DAILY [facility] Nicotine (Habitrol) 7 mg TRDERM DAILY [facility] Last Admin: 04/26/19 08:24 Dose: Not Given (Eszopiclone [ Eszopiclone] 3 Mg)* Pt Own Med* 3 mg PO BEDTIME PRN PRN Reason: Insomnia Ondansetron HCl (Zofran Odt) 4 mg PO Q4H PRN PRN Reason: nausea, able to take PO Pantoprazole Sodium (Protonix) 40 mg PO ACBREAKFAST [facility] Last Admin: 04/26/19 06:57 Dose: Not Given Potassium Chloride (Klor-Con M20) 20 meq PO BID [facility] Last Admin: 04/26/19 08:35 Dose: 20 meq Pregabalin (Lyrica) 300 mg PO BID [facility] Last Admin: 04/26/19 08:35 Dose: 300 mg Saccharomyces Boulardii (Florastor) 250 mg PO BID [facility] Last Admin: 04/26/19 08:24 Dose: 250 mg Sodium Chloride (Saline Flush) 10 ml FLUSH ASDIRECTED PRN PRN Reason: Keep Vein Open Last Admin: 04/26/19 09:38 Dose: 10 ml Discontinued Medications Ceftriaxone Sodium (Rocephin) Confirm Administered Dose 2 gm .ROUTE .STK-MED ONE Stop: 04/24/19 20:03 Last Admin: 04/24/19 20:24 Dose: Not Given Ceftriaxone Sodium (Rocephin) 2 gm IVPUSH Q24H [facility] Gadoteridol (Prohance) 20 ml IV . DIRECTED ONE Stop: 04/25/19 11:04 Last Admin: 04/25/19 11:48 Dose: 20 ml Sodium Chloride (Normal Saline) 1,000 mls @ 125 mls/hr IV ASDIRECTED [facility] Last Admin: 04/25/19 04:23 Dose: 125 mls/hr Ciprofloxacin/Dextrose 400 mg/ (Premix) 200 mls @ 200 mls/hr IV Q12H [facility] Last Admin: 04/23/19 18:11 Dose: 200 mls/hr Metronidazole 500 mg/ Premix 100 mls @ 100 mls/hr IV Q6H [facility] Last Admin: 04/23/19 22:16 Dose: Not Given Sodium Chloride (Normal Saline) 1,000 mls @ 999 mls/hr IV ONETIME ONE Stop: 04/23/19 20:07 Last Admin: 04/23/19 19:19 Dose: 999 mls/hr Ceftriaxone Sodium 2 gm/ (Sodium Chloride) 50 mls @ 200 mls/hr IV Q24H [facility] Last Admin: 04/24/19 20:24 Dose: 200 mls/hr Vancomycin HCl 1 gm/ Sodium (Chloride) 250 mls @ 167 mls/hr IV Q12H [facility] Last Admin: 04/23/19 22:15 Dose: Not Given Vancomycin HCl 2 gm/ Sodium (Chloride) 250 mls @ 167 mls/hr IV Q12H [facility] Last Admin: 04/23/19 22:14 Dose: Not Given Vancomycin HCl 2 gm/ Sodium (Chloride) 500 mls @ 334.014 mls/hr IV Q12H [facility] Last Admin: 04/23/19 21:20 Dose: 334.014 mls/hr Vancomycin HCl 2 gm/ Sodium (Chloride) 500 mls @ 250 mls/hr IV Q12H [facility] Last Admin: 04/25/19 10:50 Dose: Not Given Linezolid (Zyvox) 300 mls @ 300 mls/hr IV Q12H [facility] Last Admin: 04/25/19 11:58 Dose: 300 mls/hr Insulin Glargine (Lantus Solostar) 50 units SUBCUT DAILY [facility] Last Admin: 04/24/19 14:18 Dose: 50 units Insulin Human Lispro (Humalog) 15 unit SUBCUT TIDMEALS [facility] Last Admin: 04/25/19 10:49 Dose: Not Given Insulin Human Lispro (Humalog) 15 unit SUBCUT TIDMEALS [facility] Last Admin: 04/25/19 17:05 Dose: 15 units Insulin Human Lispro (Humalog) 12 unit SUBCUT ONETIME STA Stop: 04/25/19 21:23 Last Admin: 04/25/19 21:37 Dose: 12 units Insulin Human Regular (Humulin R) 5 unit IV ONETIME ONE Stop: 04/23/19 19:07 Last Admin: 04/23/19 19:27 Dose: 5 units Insulin Human Regular (Humulin R) 10 unit SUBCUT ONETIME ONE Stop: 04/23/19 22:10 Last Admin: 04/23/19 22:54 Dose: 10 units Iopamidol (Isovue-370 (76%)) 100 ml IV ONETIME ONE Stop: 04/24/19 08:28 Last Admin: 04/24/19 08:38 Dose: 100 ml - Exam General: Alert, Oriented, Cooperative, No Acute Distress Lungs: Clear to Auscultation, Normal Respiratory Effort Cardiovascular: Regular Rate, Regular Rhythm GI/Abdominal Exam: Normal Bowel Sounds, Soft, Non-Tender, No Distention Wound/Incisions: Drainage (bloody, pulled 4 cm clot of opening.), Erythema Improving, Other (opening 2 cm on right buttock, granulation tissue. ) - Problem List & Annotations (1) Cellulitis and abscess of buttock SNOMED Code(s): 758537533 Code(s): L02.31 - CUTANEOUS ABSCESS OF BUTTOCK; L03.317 - CELLULITIS OF BUTTOCK Status: Acute Current Visit: Yes (2) Nausea & vomiting SNOMED Code(s): 22493555 Code(s): R11.2 - NAUSEA WITH VOMITING, UNSPECIFIED Status: Resolved Current Visit: Yes (3) Fever SNOMED Code(s): 545697904 Code(s): R50.9 - FEVER, UNSPECIFIED Status: Resolved Current Visit: Yes (4) Fibromyalgia SNOMED Code(s): 134498580 Code(s): M79.7 - FIBROMYALGIA Status: Acute Current Visit: Yes (5) Diabetes mellitus with insulin therapy SNOMED Code(s): 169001532 Code(s): E11.9 - TYPE 2 DIABETES MELLITUS WITHOUT COMPLICATIONS; Z79.4 - [employer] (CURRENT) USE OF INSULIN Status: Acute Current Visit: Yes (6) Hypokalemia SNOMED Code(s): 88325664 Code(s): E87.6 - HYPOKALEMIA Status: Acute Current Visit: Yes - Problem List Review Problem List Initiated/Reviewed/Updated: Yes - My Orders Last 24 Hours: My Active Orders 04/25/19 16:00 metroNIDAZOLE/Normal Saline [Flagyl 500 MG in NS 100 ML] 500 mg Premix Bag 1 bag IV Q8H 04/25/19 16:02 Consult to Physician [CONS] Routine 04/25/19 16:03 Notify Provider Consults [RC] ASDIRECTED 04/25/19 17:00 Ciprofloxacin in D5W [Cipro in D5W 400 MG/200 ML] 400 mg Premix Bag 1 bag IV Q12H 04/25/19 18:56 Communication Order [RC] 0804/25/19 21:00 Potassium Chloride [Klor-Con M20] 20 meq PO BID 04/26/19 07:25 Acetaminophen/HYDROcodone [[place] 325-10 MG] 1 tab PO Q6H PRN 04/26/19 08:00 Insulin Lispro [HumaLOG] 18 unit SUBCUT TIDMEALS 04/26/19 09:00 Magnesium Chloride [Mag-64] 128 mg PO DAILY - Plan Plan:: WBC normal, CRP down to 8.8. Potassium unchanged from yesterday even with 20 mEq bid, checked magnesium was 1.7 so ordered Mag-64 2 tab daily. Recheck labs tomorrow. Continue Ciprofloxacin/Metronidazole day 2. Shower/sitz baths. Add hydrocodone/APAP 10-325 mg q6h as needed to get her switched to oral pain medications to be able to transition home. Used 11 units of sliding scale at meals along with 15 units scheduled, increase Humalog 18 units TID with meals and keep Lantus at 50 units. Will adjust as needed.
--- NOTE | 2019-04-26 14:12 | PCM.SURGPN ---
- General Info Date of Service: 04/26/19 Admission Diagnosis/Problem: Abscess of buttock (Drained spontaneously) Functional Status: Reports: Other (Pain better - generally feels better today) - Patient Data Vitals - Most Recent: Last Vital Signs Temp 97.8 F 04/26/19 12:00 Pulse 76 04/26/19 12:00 Resp 14 04/26/19 12:00 BP 106/64 04/26/19 12:00 Pulse Ox 95 04/26/19 12:00 Weight - Most Recent: 260 lb 3.2 oz I&O - Last 24 Hours: Intake & Output 04/25/19 04/26/19 04/26/19 22:59 06:59 14:59 Intake Total 100 Balance 100 Lab Results Last 24 Hrs: Laboratory Results - last 24 hr 04/25/19 04/25/19 04/25/19 Range/Units 16:54 21:05 22:40 WBC (4.5-12.0) X10-3/uL RBC (3.23-5.20) x10(6)uL Hgb (11.5-15.5) g/dL Hct (30.0-51.3) % MCV (80-96) fL MCH (27.7-33.6) pg MCHC (32.2-35.4) g/dL RDW (11.5-15.5) % Plt Count (125-369) X10(3)uL MPV (7.4-10.4) fL Add Manual Diff Neutrophils % (Manual) (46-82) % Band Neutrophils % (0-6) % Lymphocytes % (Manual) (13-37) % Monocytes % (Manual) (4-12) % Eosinophils % (Manual) (0-5) % Toxic Granulation (NOT SEEN) Sodium (135-145) mmol/L Potassium (3.5-5.3) mmol/L Chloride (100-110) mmol/L Carbon Dioxide (21-32) mmol/L BUN (7-18) mg/dL Creatinine (0.55-1.02) mg/dL Est Cr Clr Drug Dosing mL/min Estimated GFR (MDRD) (>60) BUN/Creatinine Ratio (9-20) Glucose (80-116) mg/dL POC Glucose 260 H 413 H* D 328 H D (80-116) mg/dL Calcium (8.6-10.2) mg/dL Magnesium (1.8-2.5) mg/dL C-Reactive Protein (0.5-0.9) mg/dL 04/25/19 04/26/19 04/26/19 Range/Units 23:28 00:21 05:40 WBC (4.5-12.0) X10-3/uL RBC (3.23-5.20) x10(6)uL Hgb (11.5-15.5) g/dL Hct (30.0-51.3) % MCV (80-96) fL MCH (27.7-33.6) pg MCHC (32.2-35.4) g/dL RDW (11.5-15.5) % Plt Count (125-369) X10(3)uL MPV (7.4-10.4) fL Add Manual Diff Neutrophils % (Manual) (46-82) % Band Neutrophils % (0-6) % Lymphocytes % (Manual) (13-37) % Monocytes % (Manual) (4-12) % Eosinophils % (Manual) (0-5) % Toxic Granulation (NOT SEEN) Sodium (135-145) mmol/L Potassium (3.5-5.3) mmol/L Chloride (100-110) mmol/L Carbon Dioxide (21-32) mmol/L BUN (7-18) mg/dL Creatinine (0.55-1.02) mg/dL Est Cr Clr Drug Dosing mL/min Estimated GFR (MDRD) (>60) BUN/Creatinine Ratio (9-20) Glucose (80-116) mg/dL POC Glucose 276 H 289 H 229 H (80-116) mg/dL Calcium (8.6-10.2) mg/dL Magnesium (1.8-2.5) mg/dL C-Reactive Protein (0.5-0.9) mg/dL 04/26/19 04/26/19 04/26/19 Range/Units 06:15 06:15 06:15 WBC 9.4 (4.5-12.0) X10-3/uL RBC 4.74 (3.23-5.20) x10(6)uL Hgb 12.9 (11.5-15.5) g/dL Hct 39.2 (30.0-51.3) % MCV 82.7 (80-96) fL MCH 27.3 L (27.7-33.6) pg MCHC 33.0 (32.2-35.4) g/dL RDW 12.6 (11.5-15.5) % Plt Count 163 (125-369) X10(3)uL MPV 10.0 (7.4-10.4) fL Add Manual Diff Yes Neutrophils % (Manual) 55 (46-82) % Band Neutrophils % 6 (0-6) % Lymphocytes % (Manual) 27 (13-37) % Monocytes % (Manual) 6 (4-12) % Eosinophils % (Manual) 6 H (0-5) % Toxic Granulation Few H (NOT SEEN) Sodium 140 (135-145) mmol/L Potassium 3.1 L (3.5-5.3) mmol/L Chloride 105 D (100-110) mmol/L Carbon Dioxide 29 (21-32) mmol/L BUN 4 L (7-18) mg/dL Creatinine 0.6 (0.55-1.02) mg/dL Est Cr Clr Drug Dosing 132.02 mL/min Estimated GFR (MDRD) > 60 (>60) BUN/Creatinine Ratio 6.7 L (9-20) Glucose 240 H D (80-116) mg/dL POC Glucose (80-116) mg/dL Calcium 8.1 L (8.6-10.2) mg/dL Magnesium (1.8-2.5) mg/dL C-Reactive Protein 8.8 H* (0.5-0.9) mg/dL 04/26/19 04/26/19 Range/Units 06:15 11:59 WBC (4.5-12.0) X10-3/uL RBC (3.23-5.20) x10(6)uL Hgb (11.5-15.5) g/dL Hct (30.0-51.3) % MCV (80-96) fL MCH (27.7-33.6) pg MCHC (32.2-35.4) g/dL RDW (11.5-15.5) % Plt Count (125-369) X10(3)uL MPV (7.4-10.4) fL Add Manual Diff Neutrophils % (Manual) (46-82) % Band Neutrophils % (0-6) % Lymphocytes % (Manual) (13-37) % Monocytes % (Manual) (4-12) % Eosinophils % (Manual) (0-5) % Toxic Granulation (NOT SEEN) Sodium (135-145) mmol/L Potassium (3.5-5.3) mmol/L Chloride (100-110) mmol/L Carbon Dioxide (21-32) mmol/L BUN (7-18) mg/dL Creatinine (0.55-1.02) mg/dL Est Cr Clr Drug Dosing mL/min Estimated GFR (MDRD) (>60) BUN/Creatinine Ratio (9-20) Glucose (80-116) mg/dL POC Glucose 267 H (80-116) mg/dL Calcium (8.6-10.2) mg/dL Magnesium 1.7 L (1.8-2.5) mg/dL C-Reactive Protein (0.5-0.9) mg/dL Richar Results Last 24 Hrs: Microbiology 04/23/19 17:00 Aerobic Blood Culture - Preliminary Blood - Venous - Lab Draw NO GROWTH AFTER 2 DAYS Anaerobic Blood Culture - Preliminary NO GROWTH AFTER 2 DAYS 04/23/19 17:00 Aerobic Blood Culture - Preliminary Blood - Venous NO GROWTH AFTER 2 DAYS Anaerobic Blood Culture - Preliminary NO GROWTH AFTER 2 DAYS 04/23/19 16:32 Gram Stain - Final Drainage - Buttock, Left Routine Culture - Final Staphylococcus Auricularis 04/23/19 17:20 Urine Culture - Final Urine, Clean Catch MIXED KOREY DAY 2 Med Orders - Current: Current Medications Acetaminophen (Tylenol) 650 mg PO Q4H PRN PRN Reason: Pain (Mild 1-3)/fever Last Admin: 04/24/19 06:30 Dose: 650 mg Hydrocodone Bitart/Acetaminophen (Braggs 325-10 Mg) 1 tab PO Q6H PRN PRN Reason: Pain (moderate 4-6) Last Admin: 04/26/19 08:23 Dose: 1 tab Enoxaparin Sodium (Lovenox) 40 mg SUBCUT Q24H [facility] Last Admin: 04/25/19 17:04 Dose: 40 mg Hydromorphone HCl (Dilaudid) 0.25 mg IVPUSH Q2H PRN PRN Reason: Pain (severe 7-10) Last Admin: 04/26/19 02:28 Dose: 0.25 mg Hydroxyzine Pamoate (Vistaril) 50 - 100 mg PO BID PRN PRN Reason: Anxiety Promethazine HCl 12.5 mg/ (Sodium Chloride) 50.5 mls @ 200 mls/hr IV Q6H PRN PRN Reason: Nausea/Vomiting Metronidazole 500 mg/ Premix 100 mls @ 100 mls/hr IV Q8H [facility] Last Admin: 04/26/19 08:37 Dose: 100 mls/hr Ciprofloxacin/Dextrose 400 mg/ (Premix) 200 mls @ 200 mls/hr IV Q12H [facility] Last Admin: 04/26/19 05:34 Dose: 200 mls/hr Insulin Glargine (Lantus Solostar) 50 units SUBCUT DAILY [facility] Last Admin: 04/26/19 10:17 Dose: 50 units Insulin Human Lispro (Humalog) 0 unit SUBCUT TIDMEALS [facility]; Protocol Last Admin: 04/26/19 12:02 Dose: 9 units Insulin Human Lispro (Humalog) 18 unit SUBCUT TIDMEALS [facility] Last Admin: 04/26/19 12:02 Dose: 18 units Ketorolac Tromethamine (Toradol) 30 mg IVPUSH Q6H PRN PRN Reason: Pain (moderate 4-6) Last Admin: 04/26/19 10:54 Dose: 30 mg Loperamide HCl (Imodium) 2 mg PO Q6H PRN PRN Reason: Diarrhea Last Admin: 04/25/19 10:18 Dose: 2 mg Magnesium Chloride (Mag-64) 128 mg PO DAILY [facility] Last Admin: 04/26/19 10:54 Dose: 128 mg Nicotine (Habitrol) 7 mg TRDERM DAILY [facility] Last Admin: 04/26/19 08:24 Dose: Not Given (Eszopiclone [ Eszopiclone] 3 Mg)* Pt Own Med* 3 mg PO BEDTIME PRN PRN Reason: Insomnia Ondansetron HCl (Zofran Odt) 4 mg PO Q4H PRN PRN Reason: nausea, able to take PO Pantoprazole Sodium (Protonix) 40 mg PO ACBREAKFAST [facility] Last Admin: 04/26/19 06:57 Dose: Not Given Potassium Chloride (Klor-Con M20) 20 meq PO BID [facility] Last Admin: 04/26/19 08:35 Dose: 20 meq Pregabalin (Lyrica) 300 mg PO BID [facility] Last Admin: 04/26/19 08:35 Dose: 300 mg Saccharomyces Boulardii (Florastor) 250 mg PO BID [facility] Last Admin: 04/26/19 08:24 Dose: 250 mg Sodium Chloride (Saline Flush) 10 ml FLUSH ASDIRECTED PRN PRN Reason: Keep Vein Open Last Admin: 04/26/19 09:38 Dose: 10 ml Discontinued Medications Ceftriaxone Sodium (Rocephin) Confirm Administered Dose 2 gm .ROUTE .STK-MED ONE Stop: 04/24/19 20:03 Last Admin: 04/24/19 20:24 Dose: Not Given Ceftriaxone Sodium (Rocephin) 2 gm IVPUSH Q24H [facility] Gadoteridol (Prohance) 20 ml IV . DIRECTED ONE Stop: 04/25/19 11:04 Last Admin: 04/25/19 11:48 Dose: 20 ml Sodium Chloride (Normal Saline) 1,000 mls @ 125 mls/hr IV ASDIRECTED [facility] Last Admin: 04/25/19 04:23 Dose: 125 mls/hr Ciprofloxacin/Dextrose 400 mg/ (Premix) 200 mls @ 200 mls/hr IV Q12H [facility] Last Admin: 04/23/19 18:11 Dose: 200 mls/hr Metronidazole 500 mg/ Premix 100 mls @ 100 mls/hr IV Q6H [facility] Last Admin: 04/23/19 22:16 Dose: Not Given Sodium Chloride (Normal Saline) 1,000 mls @ 999 mls/hr IV ONETIME ONE Stop: 04/23/19 20:07 Last Admin: 04/23/19 19:19 Dose: 999 mls/hr Ceftriaxone Sodium 2 gm/ (Sodium Chloride) 50 mls @ 200 mls/hr IV Q24H [facility] Last Admin: 04/24/19 20:24 Dose: 200 mls/hr Vancomycin HCl 1 gm/ Sodium (Chloride) 250 mls @ 167 mls/hr IV Q12H [facility] Last Admin: 04/23/19 22:15 Dose: Not Given Vancomycin HCl 2 gm/ Sodium (Chloride) 250 mls @ 167 mls/hr IV Q12H [facility] Last Admin: 04/23/19 22:14 Dose: Not Given Vancomycin HCl 2 gm/ Sodium (Chloride) 500 mls @ 334.014 mls/hr IV Q12H [facility] Last Admin: 04/23/19 21:20 Dose: 334.014 mls/hr Vancomycin HCl 2 gm/ Sodium (Chloride) 500 mls @ 250 mls/hr IV Q12H [facility] Last Admin: 04/25/19 10:50 Dose: Not Given Linezolid (Zyvox) 300 mls @ 300 mls/hr IV Q12H [facility] Last Admin: 04/25/19 11:58 Dose: 300 mls/hr Insulin Glargine (Lantus Solostar) 50 units SUBCUT DAILY [facility] Last Admin: 04/24/19 14:18 Dose: 50 units Insulin Human Lispro (Humalog) 15 unit SUBCUT TIDMEALS [facility] Last Admin: 04/25/19 10:49 Dose: Not Given Insulin Human Lispro (Humalog) 15 unit SUBCUT TIDMEALS [facility] Last Admin: 04/25/19 17:05 Dose: 15 units Insulin Human Lispro (Humalog) 12 unit SUBCUT ONETIME STA Stop: 04/25/19 21:23 Last Admin: 04/25/19 21:37 Dose: 12 units Insulin Human Regular (Humulin R) 5 unit IV ONETIME ONE Stop: 04/23/19 19:07 Last Admin: 04/23/19 19:27 Dose: 5 units Insulin Human Regular (Humulin R) 10 unit SUBCUT ONETIME ONE Stop: 04/23/19 22:10 Last Admin: 04/23/19 22:54 Dose: 10 units Iopamidol (Isovue-370 (76%)) 100 ml IV ONETIME ONE Stop: 04/24/19 08:28 Last Admin: 04/24/19 08:38 Dose: 100 ml - Exam Wound/Incisions: Erythema (less intense), Other (area still indurated but less tender, less purulent drainage although some blood clot today) General: Alert, Oriented - Problem List Review Problem List Initiated/Reviewed/Updated: Yes - My Orders Last 24 Hours: Active Orders 24 hr Category Date Time Status Communication Order [RC] 08,1600 Care 04/25/19 18:56 Active Notify Provider Consults [RC] ASDIRECTED Care 04/25/19 16:03 Active Consult to Physician [CONS] Routine Cons 04/25/19 16:02 Ordered BASIC METABOLIC PANEL,BMP [CHEM] Routine Lab 04/27/19 06:00 Ordered MAGNESIUM [CHEM] Routine Lab 04/27/19 06:00 Ordered Acetaminophen/HYDROcodone [Braggs 325-10 MG] Med 04/26/19 07:25 Active 1 tab PO Q6H PRN Ciprofloxacin in D5W [Cipro in D5W 400 MG/200 ML] 400 Med 04/25/19 17:00 Active mg Premix Bag 1 bag IV Q12H Insulin Lispro [HumaLOG] Med 04/26/19 08:00 Active 18 unit SUBCUT TIDMEALS Magnesium Chloride [Mag-64] Med 04/26/19 09:00 Active 128 mg PO DAILY Potassium Chloride [Klor-Con M20] Med 04/25/19 21:00 Active 20 meq PO BID metroNIDAZOLE/Normal Saline [Flagyl 500 MG in NS 100 ML Med 04/25/19 16:00 Active ] 500 mg Premix Bag 1 bag IV Q8H Medication Orders Acetaminophen (Tylenol) 650 mg PO Q4H PRN PRN Reason: Pain (Mild 1-3)/fever Last Admin: 04/24/19 06:30 Dose: 650 mg Hydrocodone Bitart/Acetaminophen (Braggs 325-10 Mg) 1 tab PO Q6H PRN PRN Reason: Pain (moderate 4-6) Last Admin: 04/26/19 08:23 Dose: 1 tab Enoxaparin Sodium (Lovenox) 40 mg SUBCUT Q24H [facility] Last Admin: 04/25/19 17:04 Dose: 40 mg Admin: 04/24/19 17:31 Dose: 40 mg Admin: 04/23/19 18:20 Dose: 40 mg Hydromorphone HCl (Dilaudid) 0.25 mg IVPUSH Q2H PRN PRN Reason: Pain (severe 7-10) Last Admin: 04/26/19 02:28 Dose: 0.25 mg Admin: 04/25/19 20:24 Dose: 0.25 mg Admin: 04/25/19 16:08 Dose: 0.25 mg Admin: 04/25/19 11:58 Dose: 0.25 mg Admin: 04/25/19 06:49 Dose: 0.25 mg Admin: 04/25/19 00:58 Dose: 0.25 mg Admin: 04/24/19 20:46 Dose: 0.25 mg Admin: 04/24/19 14:17 Dose: 0.25 mg Admin: 04/24/19 12:14 Dose: 0.25 mg Admin: 04/24/19 09:29 Dose: 0.25 mg Admin: 04/24/19 03:59 Dose: 0.25 mg Admin: 04/24/19 00:55 Dose: 0.25 mg Hydroxyzine Pamoate (Vistaril) 50 - 100 mg PO BID PRN PRN Reason: Anxiety Promethazine HCl 12.5 mg/ (Sodium Chloride) 50.5 mls @ 200 mls/hr IV Q6H PRN PRN Reason: Nausea/Vomiting Metronidazole 500 mg/ Premix 100 mls @ 100 mls/hr IV Q8H [facility] Last Admin: 04/26/19 08:37 Dose: 100 mls/hr Infusion: 04/26/19 01:20 Dose: 100 mls/hr Admin: 04/26/19 00:20 Dose: 100 mls/hr Infusion: 04/25/19 17:55 Dose: 100 mls/hr Admin: 04/25/19 16:55 Dose: 100 mls/hr Ciprofloxacin/Dextrose 400 mg/ (Premix) 200 mls @ 200 mls/hr IV Q12H [facility] Last Admin: 04/26/19 05:34 Dose: 200 mls/hr Infusion: 04/25/19 20:10 Dose: 200 mls/hr Admin: 04/25/19 19:10 Dose: 200 mls/hr Insulin Glargine (Lantus Solostar) 50 units SUBCUT DAILY [facility] Last Admin: 04/26/19 10:17 Dose: 50 units Admin: 04/25/19 08:08 Dose: 50 units Insulin Human Lispro (Humalog) 0 unit SUBCUT TIDMEALS [facility]; Protocol Last Admin: 04/26/19 12:02 Dose: 9 units Admin: 04/26/19 10:18 Dose: 6 units Admin: 04/25/19 17:05 Dose: 3 units Admin: 04/25/19 12:39 Dose: 4 units Admin: 04/25/19 08:08 Dose: 4 units Admin: 04/24/19 17:03 Dose: 4 units Admin: 04/24/19 12:18 Dose: 5 units Insulin Human Lispro (Humalog) 18 unit SUBCUT TIDMEALS [facility] Last Admin: 04/26/19 12:02 Dose: 18 units Admin: 04/26/19 10:19 Dose: 18 units Ketorolac Tromethamine (Toradol) 30 mg IVPUSH Q6H PRN PRN Reason: Pain (moderate 4-6) Last Admin: 04/26/19 10:54 Dose: 30 mg Admin: 04/26/19 04:22 Dose: 30 mg Admin: 04/25/19 21:34 Dose: 30 mg Admin: 04/25/19 15:34 Dose: 30 mg Admin: 04/25/19 09:09 Dose: 30 mg Admin: 04/25/19 00:59 Dose: 30 mg Admin: 04/24/19 16:58 Dose: 30 mg Admin: 04/24/19 06:29 Dose: 30 mg Admin: 04/23/19 22:26 Dose: 30 mg Loperamide HCl (Imodium) 2 mg PO Q6H PRN PRN Reason: Diarrhea Last Admin: 04/25/19 10:18 Dose: 2 mg Admin: 04/24/19 19:21 Dose: 2 mg Magnesium Chloride (Mag-64) 128 mg PO DAILY [facility] Last Admin: 04/26/19 10:54 Dose: 128 mg Nicotine (Habitrol) 7 mg TRDERM DAILY [facility] Last Admin: 04/26/19 08:24 Dose: Not Given Admin: 04/25/19 09:10 Dose: Not Given Admin: 04/24/19 09:33 Dose: Not Given Admin: 04/23/19 18:20 Dose: Not Given (Eszopiclone [ Eszopiclone] 3 Mg)* Pt Own Med* 3 mg PO BEDTIME PRN PRN Reason: Insomnia Ondansetron HCl (Zofran Odt) 4 mg PO Q4H PRN PRN Reason: nausea, able to take PO Pantoprazole Sodium (Protonix) 40 mg PO ACBREAKFAST [facility] Last Admin: 04/26/19 06:57 Dose: Admin: 04/26/19 05:36 Dose: 40 mg Admin: 04/25/19 09:10 Dose: 40 mg Potassium Chloride (Klor-Con M20) 20 meq PO BID [facility] Last Admin: 04/26/19 08:35 Dose: 20 meq Admin: 04/25/19 20:32 Dose: 20 meq Pregabalin (Lyrica) 300 mg PO BID [facility] Last Admin: 04/26/19 08:35 Dose: 300 mg Admin: 04/25/19 20:32 Dose: 300 mg Admin: 04/25/19 10:17 Dose: 300 mg Admin: 04/24/19 20:45 Dose: 300 mg Admin: 04/24/19 12:30 Dose: 300 mg Saccharomyces Boulardii (Florastor) 250 mg PO BID [facility] Last Admin: 04/26/19 08:24 Dose: 250 mg Admin: 04/25/19 20:24 Dose: 250 mg Admin: 04/25/19 09:10 Dose: 250 mg Admin: 04/24/19 20:45 Dose: 250 mg Sodium Chloride (Saline Flush) 10 ml FLUSH ASDIRECTED PRN PRN Reason: Keep Vein Open Last Admin: 04/26/19 09:38 Dose: 10 ml Admin: 04/26/19 05:35 Dose: 10 ml Admin: 04/26/19 04:23 Dose: 10 ml Admin: 04/26/19 02:21 Dose: 10 ml Admin: 04/26/19 00:20 Dose: 10 ml Admin: 04/25/19 21:34 Dose: 10 ml Admin: 04/25/19 20:26 Dose: 10 ml Admin: 04/25/19 18:07 Dose: 10 ml Admin: 04/25/19 11:59 Dose: 10 ml Admin: 04/25/19 09:11 Dose: 10 ml Admin: 04/24/19 12:17 Dose: 10 ml Admin: 04/23/19 22:28 Dose: 10 ml Admin: 04/23/19 22:27 Dose: 10 ml Admin: 04/23/19 18:22 Dose: 10 ml - Assessment Assessment (Free Text/Narrative):: Perirectal abscess which spontaneously drained slowly improving Diabetes - Plan Plan (Free Text/Narrative):: Continue current care
[2019-04-26] MEDS: Enoxaparin 40 MG/0.4 ML Syringe SUBCUT SCH (17:16)
[2019-04-27] MEDS: metroNIDAZOLE/Normal Saline 500 MG in Premix Bag 1 BAG IV SCH ×2 (00:07→09:34)
[2019-04-27] MEDS: Sodium Chloride 0.9% 10 ML Syringe FLUSH PRN ×5 (00:08→17:16)
[2019-04-27] MEDS: Ketorolac 30 MG/ML SDV IVPUSH PRN ×2 (00:13→07:37)
[2019-04-27] MEDS: Ciprofloxacin in D5W 400 MG in Premix Bag 1 BAG IV SCH ×2 (05:09)
[2019-04-27] MEDS: Acetaminophen/HYDROcodone 325-10 MG Tab PO PRN ×3 (05:17→20:56)
[2019-04-27] MEDS: Pantoprazole 40 MG Tab.CR PO SCH (07:40)
[2019-04-27] MEDS: Insulin Lispro 100 Unit/ML 3 ML KwikPen SUBCUT SCH ×6 (09:46→18:28)
[2019-04-27] MEDS: Saccharomyces Boulardii (Probiotic) 250 MG Cap PO SCH ×2 (09:48→21:00)
[2019-04-27] MEDS: Nicotine 7 MG/24 Hr Patch TRDERM SCH (09:49)
[2019-04-27] MEDS: Potassium Chloride 20 MEQ Tab.ER PO SCH ×2 (09:49→21:01)
[2019-04-27] MEDS: Insulin Glargine,Human Rec. Analog 100 Units/ML 3 ML Pen SUBCUT SCH (09:50)
[2019-04-27] MEDS: Pregabalin 100 MG Cap PO SCH ×2 (09:59→21:05)
[2019-04-27] MEDS: Magnesium Chloride 64 MG Tab.ER PO SCH (09:59)
[2019-04-27] MEDS: Acetaminophen 325 MG Tab PO PRN (11:40)
[2019-04-27] MEDS: metroNIDAZOLE 500 MG Tab PO SCH ×2 (13:32→21:00)
[2019-04-27] MEDS: HYDROmorphone 2 MG/ML SDV IVPUSH PRN (17:15)
[2019-04-27] MEDS: Enoxaparin 40 MG/0.4 ML Syringe SUBCUT SCH (17:19)
--- NOTE | 2019-04-27 17:56 | PCM.PN ---
- General Info Date of Service: 04/27/19 Admission Dx/Problem (Free Text): Patient having less drainage since debridement and sitz baths. Pain is improving with hydrocodone/APAP. No nausea, vomiting or diarrhea. Urinary frequency has resolved. - Patient Data Vitals - Most Recent: Last Vital Signs Temp 97.8 F 04/27/19 12:30 Pulse 65 04/27/19 12:30 Resp 20 04/27/19 12:30 BP 92/53 L 04/27/19 12:30 Pulse Ox 97 04/27/19 12:30 Weight - Most Recent: 260 lb 3.2 oz I&O - Last 24 Hours: Intake & Output 04/27/19 04/27/19 04/27/19 06:59 14:59 22:59 Intake Total 100 Balance 100 Lab Results Last 24 Hours: Laboratory Results - last 24 hr 04/26/19 04/27/19 04/27/19 Range/Units 20:43 06:45 09:42 Sodium 140 (135-145) mmol/L Potassium 3.6 (3.5-5.3) mmol/L Chloride 104 (100-110) mmol/L Carbon Dioxide 30 (21-32) mmol/L BUN 5 L (7-18) mg/dL Creatinine 0.6 (0.55-1.02) mg/dL Est Cr Clr Drug Dosing 132.02 mL/min Estimated GFR (MDRD) > 60 (>60) BUN/Creatinine Ratio 8.3 L (9-20) Glucose 316 H (80-116) mg/dL POC Glucose 295 H D 314 H (80-116) mg/dL Calcium 8.3 L (8.6-10.2) mg/dL Magnesium 1.6 L (1.8-2.5) mg/dL 04/27/19 04/27/19 Range/Units 11:30 17:23 Sodium (135-145) mmol/L Potassium (3.5-5.3) mmol/L Chloride (100-110) mmol/L Carbon Dioxide (21-32) mmol/L BUN (7-18) mg/dL Creatinine (0.55-1.02) mg/dL Est Cr Clr Drug Dosing mL/min Estimated GFR (MDRD) (>60) BUN/Creatinine Ratio (9-20) Glucose (80-116) mg/dL POC Glucose 363 H 254 H D (80-116) mg/dL Calcium (8.6-10.2) mg/dL Magnesium (1.8-2.5) mg/dL Richar Results Last 24 Hours: Microbiology 04/23/19 17:00 Aerobic Blood Culture - Preliminary Blood - Venous - Lab Draw NO GROWTH AFTER 4 DAYS Anaerobic Blood Culture - Preliminary NO GROWTH AFTER 4 DAYS 04/23/19 17:00 Aerobic Blood Culture - Preliminary Blood - Venous NO GROWTH AFTER 4 DAYS Anaerobic Blood Culture - Preliminary NO GROWTH AFTER 4 DAYS 04/24/19 19:03 Salmonella/Shigella Screen - Final Stool / Feces Escherichia coli Shiga Toxins EIA - Final Med Orders - Current: Current Medications Acetaminophen (Tylenol) 650 mg PO Q4H PRN PRN Reason: Pain (Mild 1-3)/fever Last Admin: 04/27/19 11:40 Dose: 650 mg Hydrocodone Bitart/Acetaminophen ([place] 325-10 Mg) 1 tab PO Q6H PRN PRN Reason: Pain (moderate 4-6) Last Admin: 04/27/19 13:30 Dose: 1 tab Ciprofloxacin (Ciprofloxacin Hcl) 500 mg PO BID [facility] Enoxaparin Sodium (Lovenox) 40 mg SUBCUT Q24H [facility] Last Admin: 04/27/19 17:19 Dose: 40 mg Hydromorphone HCl (Dilaudid) 0.25 mg IVPUSH Q2H PRN PRN Reason: Pain (severe 7-10) Last Admin: 04/27/19 17:15 Dose: 0.25 mg Hydroxyzine Pamoate (Vistaril) 50 - 100 mg PO BID PRN PRN Reason: Anxiety Promethazine HCl 12.5 mg/ (Sodium Chloride) 50.5 mls @ 200 mls/hr IV Q6H PRN PRN Reason: Nausea/Vomiting Insulin Glargine (Lantus Solostar) 50 units SUBCUT DAILY [facility] Last Admin: 04/27/19 09:50 Dose: 50 units Insulin Human Lispro (Humalog) 0 unit SUBCUT TIDMEALS [facility]; Protocol Last Admin: 04/27/19 11:35 Dose: 15 units Insulin Human Lispro (Humalog) 20 unit SUBCUT TIDMEALS [facility] Last Admin: 04/27/19 11:35 Dose: 20 units Ketorolac Tromethamine (Toradol) 30 mg IVPUSH Q6H PRN PRN Reason: Pain (moderate 4-6) Last Admin: 04/27/19 07:37 Dose: 30 mg Loperamide HCl (Imodium) 2 mg PO Q6H PRN PRN Reason: Diarrhea Last Admin: 04/25/19 10:18 Dose: 2 mg Magnesium Chloride (Mag-64) 192 mg PO DAILY [facility] Last Admin: 04/27/19 09:59 Dose: 192 mg Metronidazole (Flagyl) 500 mg PO TID [facility] Last Admin: 04/27/19 13:32 Dose: 500 mg Nicotine (Habitrol) 7 mg TRDERM DAILY [facility] Last Admin: 04/27/19 09:49 Dose: Not Given (Eszopiclone [ Eszopiclone] 3 Mg)* Pt Own Med* 3 mg PO BEDTIME PRN PRN Reason: Insomnia Ondansetron HCl (Zofran Odt) 4 mg PO Q4H PRN PRN Reason: nausea, able to take PO Pantoprazole Sodium (Protonix) 40 mg PO ACBREAKFAST [facility] Last Admin: 04/27/19 07:40 Dose: 40 mg Potassium Chloride (Klor-Con M20) 20 meq PO BID [facility] Last Admin: 04/27/19 09:49 Dose: 20 meq Pregabalin (Lyrica) 300 mg PO BID [facility] Last Admin: 04/27/19 09:59 Dose: 300 mg Saccharomyces Boulardii (Florastor) 250 mg PO BID [facility] Last Admin: 04/27/19 09:48 Dose: 250 mg Sodium Chloride (Saline Flush) 10 ml FLUSH ASDIRECTED PRN PRN Reason: Keep Vein Open Last Admin: 04/27/19 17:16 Dose: 10 ml Discontinued Medications Ceftriaxone Sodium (Rocephin) Confirm Administered Dose 2 gm .ROUTE .STK-MED ONE Stop: 04/24/19 20:03 Last Admin: 04/24/19 20:24 Dose: Not Given Ceftriaxone Sodium (Rocephin) 2 gm IVPUSH Q24H [facility] Gadoteridol (Prohance) 20 ml IV . DIRECTED ONE Stop: 04/25/19 11:04 Last Admin: 04/25/19 11:48 Dose: 20 ml Sodium Chloride (Normal Saline) 1,000 mls @ 125 mls/hr IV ASDIRECTED [facility] Last Admin: 04/25/19 04:23 Dose: 125 mls/hr Ciprofloxacin/Dextrose 400 mg/ (Premix) 200 mls @ 200 mls/hr IV Q12H [facility] Last Admin: 04/23/19 18:11 Dose: 200 mls/hr Metronidazole 500 mg/ Premix 100 mls @ 100 mls/hr IV Q6H [facility] Last Admin: 04/23/19 22:16 Dose: Not Given Sodium Chloride (Normal Saline) 1,000 mls @ 999 mls/hr IV ONETIME ONE Stop: 04/23/19 20:07 Last Admin: 04/23/19 19:19 Dose: 999 mls/hr Ceftriaxone Sodium 2 gm/ (Sodium Chloride) 50 mls @ 200 mls/hr IV Q24H [facility] Last Admin: 04/24/19 20:24 Dose: 200 mls/hr Vancomycin HCl 1 gm/ Sodium (Chloride) 250 mls @ 167 mls/hr IV Q12H [facility] Last Admin: 04/23/19 22:15 Dose: Not Given Vancomycin HCl 2 gm/ Sodium (Chloride) 250 mls @ 167 mls/hr IV Q12H [facility] Last Admin: 04/23/19 22:14 Dose: Not Given Vancomycin HCl 2 gm/ Sodium (Chloride) 500 mls @ 334.014 mls/hr IV Q12H [facility] Last Admin: 04/23/19 21:20 Dose: 334.014 mls/hr Vancomycin HCl 2 gm/ Sodium (Chloride) 500 mls @ 250 mls/hr IV Q12H [facility] Last Admin: 04/25/19 10:50 Dose: Not Given Linezolid (Zyvox) 300 mls @ 300 mls/hr IV Q12H [facility] Last Admin: 04/25/19 11:58 Dose: 300 mls/hr Metronidazole 500 mg/ Premix 100 mls @ 100 mls/hr IV Q8H [facility] Stop: 04/27/19 12:00 Last Admin: 04/27/19 09:34 Dose: 100 mls/hr Ciprofloxacin/Dextrose 400 mg/ (Premix) 200 mls @ 200 mls/hr IV Q12H [facility] Last Admin: 04/27/19 05:09 Dose: 200 mls/hr Insulin Glargine (Lantus Solostar) 50 units SUBCUT DAILY [facility] Last Admin: 04/24/19 14:18 Dose: 50 units Insulin Human Lispro (Humalog) 15 unit SUBCUT TIDMEALS [facility] Last Admin: 04/25/19 10:49 Dose: Not Given Insulin Human Lispro (Humalog) 15 unit SUBCUT TIDMEALS [facility] Last Admin: 04/25/19 17:05 Dose: 15 units Insulin Human Lispro (Humalog) 12 unit SUBCUT ONETIME STA Stop: 04/25/19 21:23 Last Admin: 04/25/19 21:37 Dose: 12 units Insulin Human Lispro (Humalog) 18 unit SUBCUT TIDMEALS [facility] Last Admin: 04/27/19 10:02 Dose: Not Given Insulin Human Regular (Humulin R) 5 unit IV ONETIME ONE Stop: 04/23/19 19:07 Last Admin: 04/23/19 19:27 Dose: 5 units Insulin Human Regular (Humulin R) 10 unit SUBCUT ONETIME ONE Stop: 04/23/19 22:10 Last Admin: 04/23/19 22:54 Dose: 10 units Iopamidol (Isovue-370 (76%)) 100 ml IV ONETIME ONE Stop: 04/24/19 08:28 Last Admin: 04/24/19 08:38 Dose: 100 ml Magnesium Chloride (Mag-64) 128 mg PO DAILY [facility] Last Admin: 04/26/19 10:54 Dose: 128 mg - Exam General: Alert, Oriented, Cooperative, No Acute Distress Lungs: Clear to Auscultation, Normal Respiratory Effort Cardiovascular: Regular Rate, Regular Rhythm GI/Abdominal Exam: Normal Bowel Sounds, Soft, Non-Tender, No Distention - Problem List & Annotations (1) Cellulitis and abscess of buttock SNOMED Code(s): 700711534 Code(s): L02.31 - CUTANEOUS ABSCESS OF BUTTOCK; L03.317 - CELLULITIS OF BUTTOCK Status: Acute Current Visit: Yes (2) Nausea & vomiting SNOMED Code(s): 33164290 Code(s): R11.2 - NAUSEA WITH VOMITING, UNSPECIFIED Status: Resolved Current Visit: Yes (3) Fever SNOMED Code(s): 797330344 Code(s): R50.9 - FEVER, UNSPECIFIED Status: Resolved Current Visit: Yes (4) Fibromyalgia SNOMED Code(s): 101792942 Code(s): M79.7 - FIBROMYALGIA Status: Acute Current Visit: Yes (5) Diabetes mellitus with insulin therapy SNOMED Code(s): 204015767 Code(s): E11.9 - TYPE 2 DIABETES MELLITUS WITHOUT COMPLICATIONS; Z79.4 - [facility] (CURRENT) USE OF INSULIN Status: Acute Current Visit: Yes (6) Hypokalemia SNOMED Code(s): 28570558 Code(s): E87.6 - HYPOKALEMIA Status: Acute Current Visit: Yes - Problem List Review Problem List Initiated/Reviewed/Updated: Yes - My Orders Last 24 Hours: My Active Orders 04/27/19 09:00 Magnesium Chloride [Mag-64] 192 mg PO DAILY 04/27/19 12:00 Insulin Lispro [HumaLOG] 20 unit SUBCUT TIDMEALS 04/27/19 14:00 metroNIDAZOLE [Flagyl] 500 mg PO TID 04/27/19 21:00 Ciprofloxacin [Ciprofloxacin HCl] 500 mg PO BID - Plan Plan:: Patient having itching with Cipro IV at IV site so will switch to oral cipro this evening and Metronidazole oral this afternoon. Not requiring any Dilaudid for pain. hope to send home tomorrow. Meal time insulin increased to 20 units daily and high dose sliding scale, required 21 units of sliding scale in addition to 18 units with meals yesterday. Dr Scott is on vacation so will have patient follow up with Dr Bird on Thursday as outpatient. Follow up with Dr Antonio for her diabetes.
[2019-04-27] MEDS: Ciprofloxacin 500 MG Tab PO SCH (20:59)
[2019-04-28] MEDS: Ketorolac 30 MG/ML SDV IVPUSH PRN ×2 (01:08→09:00)
[2019-04-28] MEDS: Sodium Chloride 0.9% 10 ML Syringe FLUSH PRN ×2 (01:09→09:00)
[2019-04-28] MEDS: Acetaminophen/HYDROcodone 325-10 MG Tab PO PRN (05:39)
[2019-04-28] MEDS: Pantoprazole 40 MG Tab.CR PO SCH (06:29)
[2019-04-28] MEDS: Nicotine 7 MG/24 Hr Patch TRDERM SCH (08:46)
[2019-04-28] MEDS: Potassium Chloride 20 MEQ Tab.ER PO SCH (08:47)
[2019-04-28] MEDS: Saccharomyces Boulardii (Probiotic) 250 MG Cap PO SCH (08:47)
[2019-04-28] MEDS: Magnesium Chloride 64 MG Tab.ER PO SCH (08:48)
[2019-04-28] MEDS: metroNIDAZOLE 500 MG Tab PO SCH (08:48)
[2019-04-28] MEDS: Ciprofloxacin 500 MG Tab PO SCH (08:48)
[2019-04-28] MEDS: Insulin Glargine,Human Rec. Analog 100 Units/ML 3 ML Pen SUBCUT SCH (08:50)
[2019-04-28] MEDS: Insulin Lispro 100 Unit/ML 3 ML KwikPen SUBCUT SCH ×2 (08:51)
[2019-04-28] MEDS: Pregabalin 100 MG Cap PO SCH (08:59)
[2019-04-28 10:56] VITALS: BP 126/67; PULSE 71
--- NOTE | 2019-04-28 18:01 | PCM.DCSUM1 ---
Discharge Summary - Hospital Course HPI Initial Comments: Patient noted pain with sitting and green foul drainage from right more than left buttock starting on , she refused to come to the doctor on when her advised her to. She has been having fevers, chills, nausea, vomiting, but no diarrhea. Last emesis was last night. She has had increased frequency but no dysuria or hematuria. She has not done any sitz baths or applied any topical antibiotics. Rates pain 04/21. Was seen in Walk-In clinic today and when provider examined, called me for admission. She was afebrile in the clinic but tachycardiac. When she arrived to floor she was febrile, 101. She has been having cold symptoms for the past week but has not taken any treatments. She is Diabetic that has Tresiba, Novolog and Janumet but has not been taking her medications. She knows that her uncontrolled sugars put her at risk of infections. She also report being achy all over. No dizziness or lightheadedness. Also was treated for fungal infection on her feet with oral and topical medication(not sure of the names), oral for 4 weeks but did not change the rash. Diagnosis: Stroke: No - Discharge Data Discharge Date: 04/28/19 Discharge Disposition: Home, Self-Care 01 Condition: Good - Referral to Home Health Primary Care Physician: Artis Antonio MD - Discharge Diagnosis/Problem(s) (1) Cellulitis and abscess of buttock SNOMED Code(s): 003666113 ICD Code: L02.31 - CUTANEOUS ABSCESS OF BUTTOCK; L03.317 - CELLULITIS OF BUTTOCK Status: Acute (2) Nausea & vomiting SNOMED Code(s): 45612626 ICD Code: R11.2 - NAUSEA WITH VOMITING, UNSPECIFIED Status: Resolved (3) Fever SNOMED Code(s): 234198624 ICD Code: R50.9 - FEVER, UNSPECIFIED Status: Resolved (4) Fibromyalgia SNOMED Code(s): 827990949 ICD Code: M79.7 - FIBROMYALGIA Status: Chronic (5) Diabetes mellitus with insulin therapy SNOMED Code(s): 566142077 ICD Code: E11.9 - TYPE 2 DIABETES MELLITUS WITHOUT COMPLICATIONS; Z79.4 - [employer]ER[employer] (CURRENT) USE OF INSULIN Status: Chronic (6) Hypokalemia SNOMED Code(s): 27440503 ICD Code: E87.6 - HYPOKALEMIA Status: Resolved - Patient Summary/Data Consults: Consultations 04/25/19 16:02 Consult to Physician [CONS] Routine Consulting Provider: Carlos Bird Call Completed to Consulting Physician: Yes: dr jauregui called and spoke with provider Reason for Consult: perirectal abscess and fistula Hospital Course: Patient was admitted for cellulitis and early sepsis, initially started on Ciprofloxacin and Metronidazole for possibly perirectal abscess. WBC was 20,000 with CRP 20. She was switched Thursday night to Rocephin & Vancomycin while awaiting wound cultures. She was improving, had no further fevers except day of admission, right buttock area was draining. Spoke with Dr Low on-call surgeon on Thursday who felt since it was draining that she did not require surgery at this time. CT was done that showed it was in the soft tissues but not muscle. No focal fluid collection to drain but could not rule out a fistula so MRI was done. MRI showed complex fistulas and abscess so Dr Bird project production engineer surgeon on Thursday, he did debridement and ordered shower/sitz bath bid. Wound culture came back staph auricularis sensitive to Ciprofloxacin so Rocephin was discontinued. Due to perirectal fistula she was also changed to Metronidazole. Earlier on Thursday her vancomycin trough came back at 5 and she was at the high dose based on her weight so she had been switched to Linezolid prior to culture results that were in the afternoon. She had 3 days of Ciprofloxacin and Metronidazole at discharge. She was switched to oral forms on prior to discharge to make sure she tolerated them. Her psychiatric medications were held as they all interacted with QT prolongation with her antibiotics. She has been off of them for about 2 weeks prior to admission. She was also transitioned to oral pain medications and had not been using Dilaudid since Thursday morning. Her Metformin was held after contrast with both CT on Thursday and MRI on Thursday. Her meal time insulin was increased to 20 units tid and used 10-20 units of sliding scale on top of it. - Patient Instructions Diet: Diabetic Diet Activity: As Tolerated Driving: May Drive Today Showering/Bathing: May Shower Notify Provider of: Fever, Increased Pain, Swelling and Redness, Drainage, Nausea and/or Vomiting Other/Special Instructions: Follow up with Dr Bird ThursdayApr 29 at 4pm. Follow up with Dr Antnoio in 1 week for your diabetes & restarting your topiramate. Follow up with Dr Alaniz after antibiotics completed to restart your medications that were held. - Discharge Plan *PRESCRIPTION DRUG MONITORING PROGRAM REVIEWED*: Yes *COPY OF PRESCRIPTION DRUG MONITORING REPORT IN PATIENT [place]: Yes Prescriptions/Med Rec: Acetaminophen/HYDROcodone [[place] 325-10 MG] 1 tab PO Q6H PRN 7 Days #28 tablet PRN Reason: Pain (Moderate 4-6) Ciprofloxacin [Ciprofloxacin HCl] 500 mg PO BID 11 Days #22 tablet metroNIDAZOLE [Flagyl] 500 mg PO TID 11 Days #33 tablet Home Medications: Home Meds Ibuprofen [Motrin] 600 mg PO Q6HR PRN 06/12/13 [History] Topiramate [Topamax] 50 mg PO BID 02/15/14 [History] Pregabalin [Lyrica] 300 mg PO BID 04/06/14 [History] [place] Carbonate [Eskalith] 1,200 mg PO DAILY 11/26/15 [History] traZODone 150 mg PO DAILY 11/26/15 [History] Eszopiclone 3 mg BEDTIME 09/09/18 [History] Insulin Degludec [Tresiba Flextouch U-100] 50 unit SQ DAILY 09/09/18 [History] [place] Carbonate 600 mg BEDTIME 09/09/18 [History] Omeprazole 20 mg PO ACBREAKFAST 04/23/19 [History] hydrOXYzine pamoate [Hydroxyzine Pamoate] 50 - 100 mg PO BID PRN 04/23/19 [ History] Acetaminophen [Tylenol] 650 mg PO Q4H PRN tablet 04/28/19 [Rx] Acetaminophen/HYDROcodone [[place] 325-10 MG] 1 tab PO Q6H PRN 7 Days #28 tablet 04/28/19 [Rx] Ciprofloxacin [Ciprofloxacin HCl] 500 mg PO BID 11 Days #22 tablet 04/28/19 [Rx] Insulin Aspart [NovoLOG] 20 units SQ TID #1 box 04/28/19 [Rx] Lurasidone HCl [Latuda] 120 mg PO BEDTIME #0 04/28/19 [Rx] QUEtiapine [SEROquel] 50 mg PO QID PRN #0 04/28/19 [Rx] metroNIDAZOLE [Flagyl] 500 mg PO TID 11 Days #33 tablet 04/28/19 [Rx] sitaGLIPtin Phos/Metformin HCl [Janumet 50-1,000 MG] 1 tab PO BID #0 04/28/19 [ Rx] Patient Handouts: Skin Abscess, [id number], Anal Fistula, Venous Thromboembolism Prevention Referrals: Carlos Bird MD [Physician] - 04/29/19 4:00 pm (please be there by 3:40 pm) - Discharge Summary/Plan Comment DC Time >30 min.: No - Patient Data Vitals - Most Recent: Last Vital Signs Temp 97.9 F 04/28/19 08:45 Pulse 71 04/28/19 08:45 Resp 18 04/28/19 08:45 BP 126/67 04/28/19 08:45 Pulse Ox 95 04/28/19 08:45 Weight - Most Recent: 260 lb 3.2 oz Lab Results - Last 24 hrs: Laboratory Results - last 24 hr 04/28/19 04/28/19 Range/Units 05:43 11:02 POC Glucose 211 H 147 H (80-116) mg/dL ANCELMO Results - Last 24 hrs: Microbiology 04/23/19 17:00 Aerobic Blood Culture - Final Blood - Venous - Lab Draw NO GROWTH AFTER 5 DAYS Anaerobic Blood Culture - Final NO GROWTH AFTER 5 DAYS 04/23/19 17:00 Aerobic Blood Culture - Final Blood - Venous NO GROWTH AFTER 5 DAYS Anaerobic Blood Culture - Final NO GROWTH AFTER 5 DAYS 04/24/19 19:03 Salmonella/Shigella Screen - Final Stool / Feces Escherichia coli Shiga Toxins EIA - Final Med Orders - Current: Current Medications Discontinued Medications Acetaminophen (Tylenol) 650 mg PO Q4H PRN PRN Reason: Pain (Mild 1-3)/fever Last Admin: 04/27/19 11:40 Dose: 650 mg Hydrocodone Bitart/Acetaminophen ([place] 325-10 Mg) 1 tab PO Q6H PRN PRN Reason: Pain (moderate 4-6) Last Admin: 04/28/19 05:39 Dose: 1 tab Ceftriaxone Sodium (Rocephin) Confirm Administered Dose 2 gm .ROUTE .STK-MED ONE Stop: 04/24/19 20:03 Last Admin: 04/24/19 20:24 Dose: Not Given Ceftriaxone Sodium (Rocephin) 2 gm IVPUSH Q24H [facility] Ciprofloxacin (Ciprofloxacin Hcl) 500 mg PO BID [facility] Last Admin: 04/28/19 08:48 Dose: 500 mg Enoxaparin Sodium (Lovenox) 40 mg SUBCUT Q24H [facility] Last Admin: 04/27/19 17:19 Dose: 40 mg Gadoteridol (Prohance) 20 ml IV . DIRECTED ONE Stop: 04/25/19 11:04 Last Admin: 04/25/19 11:48 Dose: 20 ml Hydromorphone HCl (Dilaudid) 0.25 mg IVPUSH Q2H PRN PRN Reason: Pain (severe 7-10) Last Admin: 04/27/19 17:15 Dose: 0.25 mg Hydroxyzine Pamoate (Vistaril) 50 - 100 mg PO BID PRN PRN Reason: Anxiety Promethazine HCl 12.5 mg/ (Sodium Chloride) 50.5 mls @ 200 mls/hr IV Q6H PRN PRN Reason: Nausea/Vomiting Sodium Chloride (Normal Saline) 1,000 mls @ 125 mls/hr IV ASDIRECTED [facility] Last Admin: 04/25/19 04:23 Dose: 125 mls/hr Ciprofloxacin/Dextrose 400 mg/ (Premix) 200 mls @ 200 mls/hr IV Q12H [facility] Last Admin: 04/23/19 18:11 Dose: 200 mls/hr Metronidazole 500 mg/ Premix 100 mls @ 100 mls/hr IV Q6H [facility] Last Admin: 04/23/19 22:16 Dose: Not Given Sodium Chloride (Normal Saline) 1,000 mls @ 999 mls/hr IV ONETIME ONE Stop: 04/23/19 20:07 Last Admin: 04/23/19 19:19 Dose: 999 mls/hr Ceftriaxone Sodium 2 gm/ (Sodium Chloride) 50 mls @ 200 mls/hr IV Q24H [facility] Last Admin: 04/24/19 20:24 Dose: 200 mls/hr Vancomycin HCl 1 gm/ Sodium (Chloride) 250 mls @ 167 mls/hr IV Q12H [facility] Last Admin: 04/23/19 22:15 Dose: Not Given Vancomycin HCl 2 gm/ Sodium (Chloride) 250 mls @ 167 mls/hr IV Q12H [facility] Last Admin: 04/23/19 22:14 Dose: Not Given Vancomycin HCl 2 gm/ Sodium (Chloride) 500 mls @ 334.014 mls/hr IV Q12H [facility] Last Admin: 04/23/19 21:20 Dose: 334.014 mls/hr Vancomycin HCl 2 gm/ Sodium (Chloride) 500 mls @ 250 mls/hr IV Q12H [facility] Last Admin: 04/25/19 10:50 Dose: Not Given Linezolid (Zyvox) 300 mls @ 300 mls/hr IV Q12H [facility] Last Admin: 04/25/19 11:58 Dose: 300 mls/hr Metronidazole 500 mg/ Premix 100 mls @ 100 mls/hr IV Q8H [facility] Stop: 04/27/19 12:00 Last Admin: 04/27/19 09:34 Dose: 100 mls/hr Ciprofloxacin/Dextrose 400 mg/ (Premix) 200 mls @ 200 mls/hr IV Q12H [facility] Last Admin: 04/27/19 05:09 Dose: 200 mls/hr Insulin Glargine (Lantus Solostar) 50 units SUBCUT DAILY [facility] Last Admin: 04/24/19 14:18 Dose: 50 units Insulin Glargine (Lantus Solostar) 50 units SUBCUT DAILY [facility] Last Admin: 04/28/19 08:50 Dose: 50 units Insulin Human Lispro (Humalog) 15 unit SUBCUT TIDMEALS [facility] Last Admin: 04/25/19 10:49 Dose: Not Given Insulin Human Lispro (Humalog) 0 unit SUBCUT TIDMEALS [facility]; Protocol Last Admin: 04/28/19 08:51 Dose: 6 units Insulin Human Lispro (Humalog) 15 unit SUBCUT TIDMEALS [facility] Last Admin: 04/25/19 17:05 Dose: 15 units Insulin Human Lispro (Humalog) 12 unit SUBCUT ONETIME STA Stop: 04/25/19 21:23 Last Admin: 04/25/19 21:37 Dose: 12 units Insulin Human Lispro (Humalog) 18 unit SUBCUT TIDMEALS [facility] Last Admin: 04/27/19 10:02 Dose: Not Given Insulin Human Lispro (Humalog) 20 unit SUBCUT TIDMEALS [facility] Last Admin: 04/28/19 08:51 Dose: 20 units Insulin Human Regular (Humulin R) 5 unit IV ONETIME ONE Stop: 04/23/19 19:07 Last Admin: 04/23/19 19:27 Dose: 5 units Insulin Human Regular (Humulin R) 10 unit SUBCUT ONETIME ONE Stop: 04/23/19 22:10 Last Admin: 04/23/19 22:54 Dose: 10 units Iopamidol (Isovue-370 (76%)) 100 ml IV ONETIME ONE Stop: 04/24/19 08:28 Last Admin: 04/24/19 08:38 Dose: 100 ml Ketorolac Tromethamine (Toradol) 30 mg IVPUSH Q6H PRN PRN Reason: Pain (moderate 4-6) Last Admin: 04/28/19 09:00 Dose: 30 mg Loperamide HCl (Imodium) 2 mg PO Q6H PRN PRN Reason: Diarrhea Last Admin: 04/25/19 10:18 Dose: 2 mg Magnesium Chloride (Mag-64) 128 mg PO DAILY [facility] Last Admin: 04/26/19 10:54 Dose: 128 mg Magnesium Chloride (Mag-64) 192 mg PO DAILY [facility] Last Admin: 04/28/19 08:48 Dose: 192 mg Metronidazole (Flagyl) 500 mg PO TID [facility] Last Admin: 04/28/19 08:48 Dose: 500 mg Nicotine (Habitrol) 7 mg TRDERM DAILY [facility] Last Admin: 04/28/19 08:46 Dose: Not Given (Eszopiclone [ Eszopiclone] 3 Mg)* Pt Own Med* 3 mg PO BEDTIME PRN PRN Reason: Insomnia Ondansetron HCl (Zofran Odt) 4 mg PO Q4H PRN PRN Reason: nausea, able to take PO Pantoprazole Sodium (Protonix) 40 mg PO ACBREAKFAST [facility] Last Admin: 04/28/19 06:29 Dose: 40 mg Potassium Chloride (Klor-Con M20) 20 meq PO BID [facility] Last Admin: 04/28/19 08:47 Dose: 20 meq Pregabalin (Lyrica) 300 mg PO BID [facility] Last Admin: 04/28/19 08:59 Dose: 300 mg Saccharomyces Boulardii (Florastor) 250 mg PO BID [facility] Last Admin: 04/28/19 08:47 Dose: 250 mg Sodium Chloride (Saline Flush) 10 ml FLUSH ASDIRECTED PRN PRN Reason: Keep Vein Open Last Admin: 04/28/19 09:00 Dose: 10 ml - Exam General: Reports: Alert, Oriented, Cooperative Lungs: Reports: Clear to Auscultation, Normal Respiratory Effort Cardiovascular: Reports: Regular Rate, Regular Rhythm GI/Abdominal Exam: Normal Bowel Sounds, Soft, Non-Tender, No Distention Wound/Incisions: Reports: No Drainage (slough tissue present at opening, some drainage when expressed but none when observed. ), Erythema Improving (down to buttocks surrounding gluteal cleft.)
== END 2019-04-28 11:35 | disposition home or self-care (01) | DRG 872 ==
LOC: FB.MS 16:02 → UNDOADMOB 16:02 → FB.MS 04-25 11:55 → INTOOBSV 04-25 11:55 → OBSVTOIN 04-25 11:55 → FB.MS 04-27 10:28
PROVIDERS: ADMIT Family Medicine; ATTEND Family Medicine
DX: A41.9 Sepsis, unspecified organism (principal); K61.1 Rectal abscess; L02.31 Cutaneous abscess of buttock; L03.317 Cellulitis of buttock; M79.7 Fibromyalgia; E87.6 Hypokalemia; B95.61 Methicillin susceptible Staphylococcus aureus infection as the cause of diseases classified elsewhere; F31.9 Bipolar disorder, unspecified; E11.42 Type 2 diabetes mellitus with diabetic polyneuropathy; E66.9 Obesity, unspecified; G43.909 Migraine, unspecified, not intractable, without status migrainosus; F41.0 Panic disorder [episodic paroxysmal anxiety]; Z79.4 Long term (current) use of insulin; Z91.040 Latex allergy status; Z88.8 Allergy status to other drugs, medicaments and biological substances; Z88.0 Allergy status to penicillin; Z79.899 Other long term (current) drug therapy; Z90.49 Acquired absence of other specified parts of digestive tract; Z90.89 Acquired absence of other organs; Z68.39 Body mass index [BMI] 39.0-39.9, adult
CPT/HCPCS: 36415; 72197; 74177; 80048; 80053; 80202; 81001; 81025; 82947; 82962; 83735; 85025; 86140; 87040; 87045; 87046; 87070; 87077; 87086; 87186; 87205; 87427; 96361; 96365; 96366; 96367; 96372; 96375; 96376; A9270-GY; A9579; G0378; J0696; J0744; J1170; J1650; J1815; J1815-GY; J1885; J2020; J3370; J3490; J7030; J7040; J7050; Q9967

== ENCOUNTER 2020-03-30 22:52 | Emergency (ER) | payer BC ==
[2020-03-30 23:06] VITALS: BP 153/92; PULSE 94
--- NOTE | 2020-03-30 23:08 | EDM.PDOC ---
ED HPI GENERAL MEDICAL PROBLEM - General Chief Complaint: Wound Recheck Stated Complaint: OPEN INCISIONS Time Seen by Provider: 03/30/20 23:07 Source of Information: Reports: Patient History Limitations: Reports: No Limitations - History of Present Illness INITIAL COMMENTS - FREE TEXT/NARRATIVE: 34 yo F who had Lump removed from both breasts 2 days ago. Presented to ER with concerns for possible wound infection and also requesting pain medications. No fever. She rates pain as 6/10. Presented to the ER for further evaluation Onset: Today Duration: Day(s): (2 days) - Related Data Allergies Allergy/AdvReac Type Severity Reaction Status Date / Time latex Allergy Rash Verified 04/27/19 01:06 naproxen [From Naprosyn] Allergy Nausea and Verified 04/27/19 01:06 Vomiting Penicillins Allergy Rash Verified 04/27/19 01:06 Home Meds: Home Meds Ibuprofen [Motrin] 600 mg PO Q6HR PRN 06/12/13 [History] Topiramate [Topamax] 50 mg PO BID 02/15/14 [History] Pregabalin [Lyrica] 300 mg PO BID 04/06/14 [History] [place] Carbonate [Eskalith] 1,200 mg PO DAILY 11/26/15 [History] traZODone 150 mg PO DAILY 11/26/15 [History] Eszopiclone 3 mg BEDTIME 09/09/18 [History] Insulin Degludec [Tresiba Flextouch U-100] 50 unit SQ DAILY 09/09/18 [History] [place] Carbonate 600 mg BEDTIME 09/09/18 [History] Omeprazole 20 mg PO ACBREAKFAST 04/23/19 [History] hydrOXYzine pamoate [Hydroxyzine Pamoate] 50 - 100 mg PO BID PRN 04/23/19 [History] Acetaminophen [Tylenol] 650 mg PO Q4H PRN tablet 04/28/19 [Rx] Acetaminophen/HYDROcodone [[place] 325-10 MG] 1 tab PO Q6H PRN 7 Days #28 tablet 04/28/19 [Rx] Ciprofloxacin [Ciprofloxacin HCl] 500 mg PO BID 11 Days #22 tablet 04/28/19 [Rx] Insulin Aspart [NovoLOG] 20 units SQ TID #1 box 04/28/19 [Rx] Lurasidone HCl [Latuda] 120 mg PO BEDTIME #0 04/28/19 [Rx] QUEtiapine [SEROquel] 50 mg PO QID PRN #0 04/28/19 [Rx] metroNIDAZOLE [Flagyl] 500 mg PO TID 11 Days #33 tablet 04/28/19 [Rx] sitaGLIPtin Phos/Metformin HCl [Janumet 50-1,000 MG] 1 tab PO BID #0 04/28/19 [Rx] Past Medical History HEENT History: Reports: Impaired Vision Other HEENT History: no dentures Cardiovascular History: Reports: None Respiratory History: Reports: Bronchitis, Recurrent Gastrointestinal History: Reports: Cholelithiasis Genitourinary History: Reports: None 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: Reports: Polycystic Ovaries, Other 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: Musculoskeletal History: Reports: Fibromyalgia Neurological History: Reports: Migraines, Neuropathy, Diabetic Psychiatric History: Reports: Anxiety, Bipolar, Depression, Panic Attack, Psych Hospitalization(s), Suicide Attempt Endocrine/Metabolic History: Reports: Diabetes, Type II, Obesity/BMI 30+ Hematologic History: Reports: None Dermatologic History: Reports: Cellulitis - Infectious Disease History Infectious Disease History: Reports: None - Past Surgical History HEENT Surgical History: Reports: Adenoidectomy, Oral Surgery, Tonsillectomy GI Surgical History: Reports: Appendectomy, Cholecystectomy, Other (See Below) Other GI Surgeries/Procedures: exp lap for ruptured cyst Female Surgical History: Reports: Section Other Female Surgeries/Procedures: CS x 1 Neurological Surgical History: Reports: None Musculoskeletal Surgical History: Reports: None Social & Family History - Family History Family Medical History: Noncontributory - Caffeine Use Caffeine Use: Reports: Coffee, Soda - Living Situation & Occupation Living situation: Reports: Occupation: Unemployed ED ROS GENERAL - Review of Systems Review Of Systems: See Below Constitutional: Reports: No Symptoms HEENT: Reports: No Symptoms Respiratory: Reports: No Symptoms Cardiovascular: Reports: No Symptoms Endocrine: Reports: No Symptoms GI/Abdominal: Reports: No Symptoms : Reports: No Symptoms Musculoskeletal: Reports: No Symptoms Skin: Reports: No Symptoms Neurological: Reports: No Symptoms Psychiatric: Reports: No Symptoms Hematologic/Lymphatic: Reports: No Symptoms Immunologic: Reports: No Symptoms ED EXAM, SKIN/RASH Exam: See Below Exam Limited By: No Limitations General Appearance: Alert, WD/WN, No Apparent Distress Eye Exam: Bilateral Eye: PERRL Ears: Normal External Exam, Normal Canal, Normal TMs Nose: Normal Inspection, Normal Mucosa Throat/Mouth: Normal Inspection, Normal Lips, Normal Teeth, Normal Oropharynx Head: Atraumatic, Normocephalic Neck: Normal Inspection, Supple, Non-Tender Respiratory/Chest: No Respiratory Distress, Lungs Clear Cardiovascular: Normal Peripheral Pulses, Regular Rate, Rhythm GI/Abdominal: Normal Bowel Sounds, Soft, Non-Tender Back Exam: Normal Inspection, Full Range of Motion Extremities: Normal Inspection, Normal Range of Motion Neurological: Alert, Oriented, CN II-XII Intact, Normal Cognition Psychiatric: Normal Affect, Normal Mood Skin: Warm, Dry, Intact Lymphatic: No Adenopathy Course - Vital Signs Last Recorded V/S: Last Vital Signs Temp 37.0 C 03/30/20 23:00 Pulse 94 03/30/20 23:00 Resp 17 03/30/20 23:00 BP 153/92 H 03/30/20 23:00 Pulse Ox 99 03/30/20 23:00 Departure - Departure Time of Disposition: 23:13 Disposition: Home, Self-Care 01 Clinical Impression: Visit for wound check - Discharge Information *PRESCRIPTION DRUG MONITORING PROGRAM REVIEWED*: No *COPY OF PRESCRIPTION DRUG MONITORING REPORT IN PATIENT [place]: No Referrals: Artis Antonio MD [Primary Care Provider] - Forms: ED Department Discharge Additional Instructions: Follow with PCP Return if symptoms worsen Call your Physician or Return to Emergency Department if: * Your condition worsens in any way. * You develop fever greater than 100.4. * You have vomitting that does not stop with medications. * You have pain that is not controlled with medications. Sepsis Event Note (ED) - Evaluation Sepsis Screening Result: No Definite Risk - Focused Exam Vital Signs: Vital Signs Temp Pulse Resp BP Pulse Ox 03/30/20 23:00 37.0 C 94 17 153/92 H 99
== END 2020-03-30 23:17 | disposition home or self-care (01) ==
LOC: FB.ED 22:52
DX: Z48.817 Encounter for surgical aftercare following surgery on the skin and subcutaneous tissue (principal); E11.40 Type 2 diabetes mellitus with diabetic neuropathy, unspecified; F31.9 Bipolar disorder, unspecified; F41.9 Anxiety disorder, unspecified; E66.9 Obesity, unspecified; Z79.4 Long term (current) use of insulin; Z91.040 Latex allergy status; Z88.0 Allergy status to penicillin; Z79.899 Other long term (current) drug therapy; Z88.8 Allergy status to other drugs, medicaments and biological substances
CPT/HCPCS: 99281; 99282

== ENCOUNTER 2020-04-29 22:49 | Emergency (ER) | payer BC ==
[2020-04-29 23:05] VITALS: BP 142/78; PULSE 96
[2020-04-29] MEDS ORDERED: predniSONE 20 MG Tab PO ONE (23:11)
--- NOTE | 2020-04-29 23:19 | EDM.PDOC ---
ED HPI GENERAL MEDICAL PROBLEM - General Chief Complaint: Allergic Reaction Stated Complaint: hives Time Seen by Provider: 04/29/20 23:11 Source of Information: Reports: Patient History Limitations: Reports: No Limitations - History of Present Illness INITIAL COMMENTS - FREE TEXT/NARRATIVE: Presents with a generalized pruritic rash x 1 week. No new soaps, lotions, detergents, shampoos, or medications. Patient received a "Cortisone shot" and Vistaril Rx from her PMD on 04/26/20, she has obtained no improvement. She believes her symptoms may be due to stress. Denies difficulty swallowing or breathing. Duration: Week(s): (1) Severity: Mild Bilateral Lower Leg Pain Score (Numeric/FACES): 4 - Related Data Allergies Allergy/AdvReac Type Severity Reaction Status Date / Time latex Allergy Rash Verified 04/27/19 01:06 naproxen [From Naprosyn] Allergy Nausea and Verified 04/27/19 01:06 Vomiting Penicillins Allergy Rash Verified 04/27/19 01:06 Home Meds: Home Meds Ibuprofen [Motrin] 600 mg PO Q6HR PRN 06/12/13 [History] Topiramate [Topamax] 50 mg PO BID 02/15/14 [History] Pregabalin [Lyrica] 300 mg PO BID 04/06/14 [History] [place] Carbonate [Eskalith] 1,200 mg PO DAILY 11/26/15 [History] traZODone 150 mg PO DAILY 11/26/15 [History] Eszopiclone 3 mg BEDTIME 09/09/18 [History] Insulin Degludec [Tresiba Flextouch U-100] 50 unit SQ DAILY 09/09/18 [History] [place] Carbonate 600 mg BEDTIME 09/09/18 [History] hydrOXYzine pamoate [Hydroxyzine Pamoate] 50 - 100 mg PO BID PRN 04/23/19 [History] Acetaminophen [Tylenol] 650 mg PO Q4H PRN tablet 04/28/19 [Rx] Acetaminophen/HYDROcodone [[place] 325-10 MG] 1 tab PO Q6H PRN 7 Days #28 tablet 04/28/19 [Rx] Insulin Aspart [NovoLOG] 20 units SQ TID #1 box 04/28/19 [Rx] Lurasidone HCl [Latuda] 120 mg PO BEDTIME #0 04/28/19 [Rx] QUEtiapine [SEROquel] 50 mg PO QID PRN #0 04/28/19 [Rx] metroNIDAZOLE [Flagyl] 500 mg PO TID 11 Days #33 tablet 04/28/19 [Rx] sitaGLIPtin Phos/Metformin HCl [Janumet 50-1,000 MG] 1 tab PO BID #0 04/28/19 [Rx] predniSONE [Prednisone] 60 mg PO DAILY 4 Days #12 tablet 04/29/20 [Rx] Past Medical History HEENT History: Reports: Impaired Vision Other HEENT History: no dentures Cardiovascular History: Reports: None Respiratory History: Reports: Bronchitis, Recurrent Gastrointestinal History: Reports: Cholelithiasis Genitourinary History: Reports: None 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: Reports: Polycystic Ovaries, 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: Musculoskeletal History: Reports: Fibromyalgia Neurological History: Reports: Migraines, Neuropathy, Diabetic Psychiatric History: Reports: Anxiety, Bipolar, Depression, Panic Attack, Psych Hospitalization(s), Suicide Attempt Endocrine/Metabolic History: Reports: Diabetes, Type II, Obesity/BMI 30+ Hematologic History: Reports: None Dermatologic History: Reports: Cellulitis - Infectious Disease History Infectious Disease History: Reports: None - Past Surgical History HEENT Surgical History: Reports: Adenoidectomy, Oral Surgery, Tonsillectomy GI Surgical History: Reports: Appendectomy, Cholecystectomy, Other (See Below) Other GI Surgeries/Procedures: exp lap for ruptured cyst Female Surgical History: Reports: Section Other Female Surgeries/Procedures: CS x 1 Neurological Surgical History: Reports: None Musculoskeletal Surgical History: Reports: None Social & Family History - Family History Family Medical History: Noncontributory - Caffeine Use Caffeine Use: Reports: Coffee, Soda - Living Situation & Occupation Living situation: Reports: Occupation: Unemployed ED ROS ALLERGIC REACTION - Review of Systems Review Of Systems: Comprehensive ROS is negative, except as noted in HPI. ED EXAM GENERAL NO PERIP PULSE - Physical Exam Exam: See Below Exam Limited By: No Limitations General Appearance: Alert, WD/WN, No Apparent Distress Ears: Normal External Exam Nose: Normal Inspection Throat/Mouth: Normal Inspection, No Airway Compromise Head: Atraumatic, Normocephalic Respiratory/Chest: No Respiratory Distress, Lungs Clear, Normal Breath Sounds Cardiovascular: Regular Rate, Rhythm, No Murmur Neurological: Alert, Normal Cognition Psychiatric: Normal Affect, Normal Mood Skin Exam: Other (generalized urticarial rash) Course - Vital Signs Last Recorded V/S: Last Vital Signs Temp 36.7 C 04/29/20 23:04 Pulse 96 04/29/20 23:04 Resp 18 04/29/20 23:04 BP 142/78 H 04/29/20 23:04 Pulse Ox 100 04/29/20 23:04 - Orders/Labs/Meds Orders: Active Orders 24 hr Category Date Time Status predniSONE Med 04/29/20 23:11 Once 60 mg PO ONETIME ONE Medication Orders Prednisone (Prednisone) 60 mg PO ONETIME ONE Stop: 04/29/20 23:12 Meds: Medications Generic Name Dose Route Start Last Admin Trade Name Jose Manuel PRN Reason Stop Dose Admin Prednisone 60 mg 04/29/20 23:11 Prednisone PO 04/29/20 23:12 ONETIME ONE Departure - Departure Time of Disposition: 23:16 Disposition: Home, Self-Care 01 Condition: Good Clinical Impression: Urticaria - Discharge Information *PRESCRIPTION DRUG MONITORING PROGRAM REVIEWED*: No *COPY OF PRESCRIPTION DRUG MONITORING REPORT IN PATIENT [place]: Not Applicable Prescriptions: predniSONE [Prednisone] 60 mg PO DAILY 4 Days #12 tablet Instructions: Hives, [id number] Referrals: Artis Antonio MD [Primary Care Provider] - 2 Days Forms: ED Department Discharge Additional Instructions: Continue Vistaril. Fill the prescription for Prednisone at [facility] and take as directed. Follow up with your primary physician in 2 days if symptoms don't improve. Return to the ER if you feel you are having a medical emergency. Sepsis Event Note (ED) - Evaluation Sepsis Screening Result: No Definite Risk - Focused Exam Vital Signs: Vital Signs Temp Pulse Resp BP Pulse Ox 04/29/20 23:04 36.7 C 96 18 142/78 H 100 - My Orders Last 24 Hours: My Active Orders 04/29/20 23:11 predniSONE 60 mg PO ONETIME ONE - Assessment/Plan Last 24 Hours: My Active Orders 04/29/20 23:11 predniSONE 60 mg PO ONETIME ONE
== END 2020-04-29 23:27 | disposition home or self-care (01) ==
LOC: FB.ED 22:49
DX: L50.9 Urticaria, unspecified (principal); F41.9 Anxiety disorder, unspecified; F31.9 Bipolar disorder, unspecified; E11.40 Type 2 diabetes mellitus with diabetic neuropathy, unspecified; E66.9 Obesity, unspecified; Z79.4 Long term (current) use of insulin; Z79.899 Other long term (current) drug therapy; Z88.0 Allergy status to penicillin; Z91.040 Latex allergy status; Z88.6 Allergy status to analgesic agent; Z68.39 Body mass index [BMI] 39.0-39.9, adult
CPT/HCPCS: 99282; J7512; 99283

== ENCOUNTER 2020-07-12 23:06 | Emergency (ER) | payer BC, OTHER ==
--- NOTE | 2020-07-12 23:48 | EDM.PDOC ---
ED HPI GENERAL MEDICAL PROBLEM - General Chief Complaint: Lower Extremity Injury/Pain Stated Complaint: FOOT INJURY Time Seen by Provider: 07/12/20 23:45 Source of Information: Reports: Patient History Limitations: Reports: No Limitations - History of Present Illness INITIAL COMMENTS - FREE TEXT/NARRATIVE: 34-year-old female who reports was working at [employer] and dropped a empty wooden pallet on her left distal foot at approximately 8:30 PM tonight. She has a 7/10 level of pain in the foot and great toe distally she reports the pain is a sharp and throbbing pain and it is to shoot up her foot. It is worse if she tries to ambulate. She is able to ambulate but with a limp and with increased pain. There are no open wounds. There were no other injuries. She presents to the emergency department via private vehicle by personnel from her job. She had no antecedent problems. There are no other associated signs or symptoms. There are no other modifying factors. Onset: Today (8:30 PM) Duration: Constant Location: Reports: Lower Extremity, Left (Left foot) Quality: Reports: Ache, Sharp Severity: Moderate Improves with: Reports: Rest Worsens with: Reports: Other (Palpation. Bearing weight.), Movement Context: Reports: Trauma Associated Symptoms: Reports: No Other Symptoms Treatments CHIEF SECURITY AND SAFETY OFFICER: Reports: Cold Therapy L foot Pain Score (Numeric/FACES): 7 - Related Data Allergies Allergy/AdvReac Type Severity Reaction Status Date / Time latex Allergy Rash Verified 07/12/20 23:25 naproxen [From Naprosyn] Allergy Nausea and Verified 07/12/20 23:25 Vomiting Penicillins Allergy Rash Verified 07/12/20 23:25 Home Meds: Home Meds Ibuprofen [Motrin] 800 mg PO Q6HR PRN 06/12/13 [History] Pregabalin [Lyrica] 300 mg PO BID 04/06/14 [History] traZODone 150 mg PO DAILY 11/26/15 [History] Insulin Degludec [Tresiba Flextouch U-100] 50 unit SQ DAILY 09/09/18 [History] [place] Carbonate 600 mg BID 09/09/18 [History] hydrOXYzine pamoate [Hydroxyzine Pamoate] 50 - 100 mg PO BID PRN 04/23/19 [History] Acetaminophen [Tylenol] 650 mg PO Q4H PRN tablet 04/28/19 [Rx] Insulin Aspart [NovoLOG] 20 units SQ TID #1 box 04/28/19 [Rx] QUEtiapine [SEROquel] 50 mg PO QID PRN #0 04/28/19 [Rx] Lurasidone HCl [Latuda] 120 mg PO DAILY 07/12/20 [History] sitaGLIPtin Phos/Metformin HCl [Janumet 50-1,000 MG] 1 tab PO DAILY 07/12/20 [History] Past Medical History HEENT History: Reports: Impaired Vision Other HEENT History: no dentures Respiratory History: Reports: Bronchitis, Recurrent Gastrointestinal History: Reports: GERD 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: Reports: Polycystic 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: Musculoskeletal History: Reports: Fibromyalgia Neurological History: Reports: Migraines, Neuropathy, Diabetic Psychiatric History: Reports: Anxiety, Bipolar, Depression, Panic Attack, Psych Hospitalization(s), Suicide Attempt Endocrine/Metabolic History: Reports: Diabetes, Type II, Obesity/BMI 30+ Dermatologic History: Reports: Cellulitis - Infectious Disease History Infectious Disease History: Reports: None - Past Surgical History HEENT Surgical History: Reports: Adenoidectomy, Oral Surgery, Tonsillectomy GI Surgical History: Reports: Appendectomy, Cholecystectomy, Other (See Below) Other GI Surgeries/Procedures: exp lap for ruptured cyst Female Surgical History: Reports: Section Other Female Surgeries/Procedures: CS x 1 Musculoskeletal Surgical History: Reports: Arthroscopic Knee (Bilateral knees), Carpal Tunnel (Right) Dermatological Surgical History: Reports: None Social & Family History - Tobacco Use Tobacco Use Status *Q: Current Every Day Tobacco User Years of Tobacco use: 22 Packs/Tins Daily: 1 - Caffeine Use Caffeine Use: Reports: Coffee, Energy Drinks, Soda, Tea - Alcohol Use Alcohol Use History: Yes Alcohol Use Frequency: Rarely - Recreational Drug Use Recreational Drug Use: No - Living Situation & Occupation Living situation: Reports: Occupation: Employed (Works at [employer]) Review of Systems - Review of Systems Review Of Systems: See Below Constitutional: Reports: No Symptoms Eyes: Reports: No Symptoms Ears: Reports: No Symptoms Nose: Reports: No Symptoms Mouth/Throat: Reports: No Symptoms Respiratory: Reports: No Symptoms Cardiovascular: Reports: No Symptoms GI/Abdominal: Reports: No Symptoms Genitourinary: Reports: No Symptoms Musculoskeletal: Reports: Foot Pain (Left foot pain status post injury) Skin: Reports: No Symptoms Neurological: Reports: No Symptoms Psychiatric: Reports: No Symptoms ED EXAM, GENERAL - Physical Exam Exam: See Below Exam Limited By: No Limitations General Appearance: Alert, WD/WN, Mild Distress Eye Exam: Bilateral Eye: EOMI, Normal Inspection Ears: Normal External Exam, Hearing Grossly Normal Ear Exam: Bilateral Ear: Auricle Normal Nose: Normal Inspection, Normal Mucosa, No Blood Throat/Mouth: Normal Inspection, Normal Lips, Normal Oropharynx, Normal Voice, No Airway Compromise Head: Atraumatic, Normocephalic Neck: Normal Inspection, Supple, Non-Tender, Full Range of Motion Respiratory/Chest: No Respiratory Distress, Lungs Clear, Normal Breath Sounds, No Accessory Muscle Use, Chest Non-Tender Cardiovascular: Normal Peripheral Pulses, Regular Rate, Rhythm, No Murmur Peripheral Pulses: 2+: Radial (L), Radial (R), Dorsalis Pedis (L) GI/Abdominal: Normal Bowel Sounds, Soft, Non-Tender, No Mass Back Exam: Normal Inspection Extremities: Normal Range of Motion, Normal Capillary Refill, Pedal Edema (Some edema in both legs.), Other (Pain with palpation over the distal left foot) Neurological: Alert, Oriented, CN II-XII Intact, Normal Cognition, No Motor/Sensory Deficits Psychiatric: Normal Affect Skin Exam: Warm, Dry, Intact, Normal Color, No Rash Course - Vital Signs Last Recorded V/S: Last Vital Signs Temp 36.8 C 07/12/20 23:19 Pulse 94 07/12/20 23:19 Resp 18 07/12/20 23:19 BP 144/86 H 07/12/20 23:19 Pulse Ox 100 07/12/20 23:19 - Orders/Labs/Meds Orders: Active Orders 24 hr Category Date Time Status Foot Comp Min 3V Lt [CR] Stat Exams 07/12/20 23:57 Taken - Radiology Interpretation Free Text/Narrative:: Left foot x-ray shows no definite fracture. - Re-Assessments/Exams Free Text/Narrative Re-Assessment/Exam: 07/13/20 00:35: The x-ray of the left foot showed no definite fracture. I will have the patient off work until 07/15/2020 and she should be able to go back to work without any restrictions. We will place the patient in a postop shoe and have her bear weight as tolerated. She should apply ice packs intermittently to the area for the next 2-3 days and she can take ibuprofen and Tylenol for the pain as needed. Precautions and reasons for return to the emergency department were discussed with the patient while she was in the emergency department were detailed in the patient's discharge instructions. Departure - Departure Time of Disposition: 00:55 Disposition: Home, Self-Care 01 Condition: Good Clinical Impression: Contusion of left foot, initial encounter - Discharge Information Instructions: Foot Contusion, [id number] Referrals: Artis Antonio MD [Primary Care Provider] - Forms: ED Department Discharge Additional Instructions: The x-ray of your left foot showed no definite fracture. You appear to have a bruise to your left foot. You should use the postop shoe for comfort and support. You should bear weight as tolerated on your left foot. You should apply ice packs intermittently to the left foot for the next 2-3 days and elevate your left foot. You can take ibuprofen and Tylenol for your pain as needed. No work until 07/15/2020. Back to the emergency department for marked increase in pain, redness, fever or any other concerning sign or symptom. Sepsis Event Note (ED) - Evaluation Sepsis Screening Result: No Definite Risk - Focused Exam Vital Signs: Vital Signs Temp Pulse Resp BP Pulse Ox 07/12/20 23:19 36.8 C 94 18 144/86 H 100 07/12/20 23:14 36.8 C 94 15 144/86 H 100 - My Orders Last 24 Hours: My Active Orders 07/12/20 23:57 Foot Comp Min 3V Lt [CR] Stat - Assessment/Plan Last 24 Hours: My Active Orders 07/12/20 23:57 Foot Comp Min 3V Lt [CR] Stat
[2020-07-13 01:03] VITALS: BP 125/65; PULSE 91
--- NOTE | 2020-07-16 10:55 | CR ---
INDICATION: Dropped pallet on left foot, now with pain tip mid foot. LEFT FOOT: Three view of the left were obtained 07/12/20 - no comparison. Large plantar calcaneal spur is noted. An acute fracture or dislocation was not identified. If occult fracture site is suspected clinically - if symptoms persist - reexamination in 10-14 days may be helpful. MTDD
== END 2020-07-13 01:08 | disposition home or self-care (01) ==
LOC: FB.ED 23:06
DX: S90.32XA Contusion of left foot, initial encounter (principal); E11.40 Type 2 diabetes mellitus with diabetic neuropathy, unspecified; F31.9 Bipolar disorder, unspecified; F41.9 Anxiety disorder, unspecified; E66.9 Obesity, unspecified; F17.210 Nicotine dependence, cigarettes, uncomplicated; Z79.4 Long term (current) use of insulin; Z79.899 Other long term (current) drug therapy; Z68.41 Body mass index [BMI] 40.0-44.9, adult; Z91.040 Latex allergy status; Z88.8 Allergy status to other drugs, medicaments and biological substances; Z88.0 Allergy status to penicillin; W20.8XXA Other cause of strike by thrown, projected or falling object, initial encounter
CPT/HCPCS: 73630-LT; 99283; 99283-25

== ENCOUNTER 2020-11-27 22:39 | Emergency (ER) | payer BC ==
[2020-11-27] MEDS ORDERED: SUMAtriptan 6 MG/0.5 ML SDV SUBCUT STA (22:57)
[2020-11-27] MEDS ORDERED: Ondansetron 4 MG Tab.DIS PO STA (22:57)
--- NOTE | 2020-11-27 23:11 | EDM.PDOC ---
ED HPI GENERAL MEDICAL PROBLEM - General Stated Complaint: MIRGRAINE Time Seen by Provider: 11/27/20 22:50 Source of Information: Reports: Patient, Family History Limitations: Reports: No Limitations - History of Present Illness INITIAL COMMENTS - FREE TEXT/NARRATIVE: Patient presented to the ED because of headache for 5 days. she rate it as 10/10,throbbing,bi frontal area,however, she keeps staring at her cell phone. She also has nausea and vomiting x1. - Related Data Allergies Allergy/AdvReac Type Severity Reaction Status Date / Time latex Allergy Rash Verified 10/03/20 14:13 naproxen [From Naprosyn] Allergy Nausea and Verified 10/03/20 14:13 Vomiting Penicillins Allergy Rash Verified 10/03/20 14:13 Home Meds: Home Meds Ibuprofen [Motrin] 800 mg PO Q6HR PRN 06/12/13 [History] Pregabalin [Lyrica] 300 mg PO BID 04/06/14 [History] traZODone 150 mg PO DAILY 11/26/15 [History] Insulin Degludec [Tresiba Flextouch U-100] 50 unit SQ DAILY 09/09/18 [History] [place] Carbonate 600 mg BID 09/09/18 [History] hydrOXYzine pamoate [Hydroxyzine Pamoate] 50 - 100 mg PO BID PRN 04/23/19 [History] Acetaminophen [Tylenol] 650 mg PO Q4H PRN tablet 04/28/19 [Rx] Insulin Aspart [NovoLOG] 20 units SQ TID #1 box 04/28/19 [Rx] QUEtiapine [SEROquel] 50 mg PO QID PRN #0 04/28/19 [Rx] Lurasidone HCl [Latuda] 120 mg PO DAILY 07/12/20 [History] sitaGLIPtin Phos/Metformin HCl [Janumet 50-1,000 MG] 1 tab PO DAILY 07/12/20 [History] Topiramate [Topamax] 50 mg PO BID #30 tablet 11/27/20 [Rx] Past Medical History HEENT History: Reports: Impaired Vision Other HEENT History: no dentures Cardiovascular History: Reports: None Respiratory History: Reports: Bronchitis, Recurrent Gastrointestinal History: Reports: GERD Genitourinary History: Reports: None RECHARGER History: Reports: Polycystic Ovaries Other RECHARGER History: Musculoskeletal History: Reports: Fibromyalgia Neurological History: Reports: Migraines, Neuropathy, Diabetic Psychiatric History: Reports: Anxiety, Bipolar, Depression, Panic Attack, Psych Hospitalization(s), Suicide Attempt Endocrine/Metabolic History: Reports: Diabetes, Type II, Obesity/BMI 30+ Hematologic History: Reports: None Dermatologic History: Reports: Cellulitis - Infectious Disease History Infectious Disease History: Reports: None - Past Surgical History Musculoskeletal Surgical History: Reports: Arthroscopic Knee (Bilateral knees), Carpal Tunnel (Right) Social & Family History - Family History Family Medical History: No Pertinent Family History - Caffeine Use Caffeine Use: Reports: Coffee, Energy Drinks, Soda, Tea - Living Situation & Occupation Living situation: Reports: Occupation: Employed (Works at [employer]) [facility] GENERAL - Review of Systems Review Of Systems: See Below Constitutional: Reports: No Symptoms HEENT: Reports: No Symptoms Respiratory: Reports: No Symptoms Cardiovascular: Reports: No Symptoms Endocrine: Reports: No Symptoms GI/Abdominal: Reports: Nausea, Vomiting : Reports: No Symptoms Musculoskeletal: Reports: No Symptoms Skin: Reports: No Symptoms Neurological: Reports: Headache - Physical Exam Exam: See Below Exam Limited By: No Limitations General Appearance: Alert, No Apparent Distress Eye Exam: Bilateral Eye: PERRL Ears: Normal External Exam, Normal Canal Nose: Normal Inspection, Normal Mucosa Throat/Mouth: Normal Inspection, Normal Lips, Normal Teeth Head Exam: Atraumatic, Normocephalic Neck: Normal Inspection, Supple, Non-Tender, Full Range of Motion Respiratory/Chest: No Respiratory Distress, Lungs Clear, Normal Breath Sounds, N o Accessory Muscle Use, Chest Non-Tender Cardiovascular: Normal Peripheral Pulses, Regular Rate, Rhythm, No Edema, No Gallop, No JVD, No Murmur GI/Abdominal: Normal Bowel Sounds, Soft, Non-Tender, No Organomegaly, No Distention Neuro Exam (Abbreviated): Alert, Oriented, CN II-XII Intact Course - Vital Signs Text/Narrative:: Imitrex 6 mg SC x1 Zofran ODT 4 mg PO x1 - Orders/Labs/Meds Meds: Medications Discontinued Medications Generic Name Dose Route Start Last Admin Trade Name Freq PRN Reason Stop Dose Admin Ondansetron HCl 4 mg 11/27/20 22:57 Ondansetron 4 Mg Tab.Dis PO 11/27/20 22:58 NOW STA Sumatriptan Succinate 6 mg 11/27/20 22:57 Sumatriptan 6 Mg/0.5 Ml Sdv SUBCUT 11/27/20 22:58 NOW STA Departure - Departure Time of Disposition: 00:00 Disposition: Home, Self-Care 01 Condition: Good Clinical Impression: Migraine - Discharge Information Prescriptions: Topiramate [Topamax] 50 mg PO BID #30 tablet Additional Instructions: Please read discharge instructions on Migraine Quit drinking power drinks, it causes headache Topamax 50 mg Twice daily for 15 days Take ibuprofen 800 mg with tylenol 1000 mg every 8 hours as needed for headache Follow up as needed
[2020-11-28 00:09] VITALS: BP 144/77; PULSE 98
== END 2020-11-28 00:05 | disposition home or self-care (01) ==
LOC: FB.ED 22:39
DX: G43.909 Migraine, unspecified, not intractable, without status migrainosus (principal); E11.40 Type 2 diabetes mellitus with diabetic neuropathy, unspecified; E66.9 Obesity, unspecified; Z88.0 Allergy status to penicillin; Z88.5 Allergy status to narcotic agent; Z68.30 Body mass index [BMI] 30.0-30.9, adult; Z91.040 Latex allergy status; Z79.4 Long term (current) use of insulin
CPT/HCPCS: 96372; 99283; A9270-GY; J3030

== ENCOUNTER 2021-07-04 04:03 | Emergency (ER) | payer BC ==
--- NOTE | 2021-07-04 04:41 | EDM.PDOC ---
ED HPI GENERAL MEDICAL PROBLEM - General Chief Complaint: Respiratory Problem Stated Complaint: cough,sob Time Seen by Provider: 07/04/21 04:36 Source of Information: Reports: Patient History Limitations: Reports: No Limitations - History of Present Illness INITIAL COMMENTS - FREE TEXT/NARRATIVE: 35-year-old female who reports had onset of nasal congestion, cough, fever, sinus congestion and generalized body aches with some chest tightness on this last weekend. She was seen by Dr. Antonio on Thursday of this week with other family members who had similar symptoms and was diagnosed with an upper respiratory/sinus infection and she was placed on doxycycline. She reports that her symptoms of continued unabating and she has developed a hoarse voice since last night and the feelings of difficulty breathing. She has had some posttussive emesis and she was feeling difficulty breathing this morning and that is what prompted her to come to the emergency department. She has diffuse body aches which she states she has all the time related to her fibromyalgia but they seem to be a bit worse and it as an aching pain is all over and she would rate that is about a 7/10 and she also has tightness sharp pains in her chest with cough and at present now without cough that she would rated as about an 8/10. No diarrhea. She has had persisting fevers up to 101F. She reports that her glucoses have been somewhat elevated in since last night they have been in the 230 range. There are no other associated signs or symptoms. There are no other modifying factors Onset: Other (5 days) Duration: Getting Worse Location: Reports: Head, Chest, Generalized Quality: Reports: Ache, Sharp Severity: Moderate Improves with: Reports: None Worsens with: Reports: Breathing, Other (Cough) Context: Reports: Other (As above.) Associated Symptoms: Reports: No Other Symptoms (Except as above.) Treatments GUIDE ALPINE: Reports: Acetaminophen, Other (see below) Other Treatments GUIDE ALPINE: doxycycline - Related Data Allergies Allergy/AdvReac Type Severity Reaction Status Date / Time latex Allergy Rash Verified 07/04/21 04:34 naproxen [From Naprosyn] Allergy Nausea and Verified 07/04/21 04:34 Vomiting Penicillins Allergy Rash Verified 07/04/21 04:34 Home Meds: Home Meds Ibuprofen [Motrin] 800 mg PO Q6HR PRN 06/12/13 [History] Insulin Degludec [Tresiba Flextouch U-100] 50 unit SQ DAILY 09/09/18 [History] Acetaminophen [Tylenol] 650 mg PO Q4H PRN tablet 04/28/19 [Rx] Insulin Aspart [NovoLOG] 20 units SQ TID #1 box 04/28/19 [Rx] sitaGLIPtin Phos/Metformin HCl [Janumet 50-1,000 MG] 1 tab PO DAILY 07/12/20 [History] Doxycycline [Vibra-Tabs] 100 mg PO BID 07/04/21 [History] Empagliflozin [Jardiance] 10 mg PO ASDIRECTED 07/04/21 [History] LORazepam [Ativan] 1 mg PO ASDIRECTED 07/04/21 [History] Semaglutide [Ozempic] 1 mg SQ ASDIRECTED 07/04/21 [History] traMADol [Ultram] 50 mg PO ASDIRECTED 07/04/21 [History] Past Medical History HEENT History: Reports: Impaired Vision Other HEENT History: no dentures Respiratory History: Reports: Bronchitis, Recurrent Gastrointestinal History: Reports: GERD 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: Reports: Polycystic Ovaries 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: Musculoskeletal History: Reports: Fibromyalgia Neurological History: Reports: Migraines, Neuropathy, Diabetic Psychiatric History: Reports: Anxiety, Bipolar, Depression, Panic Attack, Psych Hospitalization(s), Suicide Attempt Endocrine/Metabolic History: Reports: Diabetes, Type II, Obesity/BMI 30+ Dermatologic History: Reports: Cellulitis - Infectious Disease History Infectious Disease History: Reports: None - Past Surgical History HEENT Surgical History: Reports: Adenoidectomy, Oral Surgery, Tonsillectomy GI Surgical History: Reports: Appendectomy, Cholecystectomy, Other (See Below) Other GI Surgeries/Procedures: exp lap for ruptured cyst Female Surgical History: Reports: Section Other Female Surgeries/Procedures: CS x 1 Musculoskeletal Surgical History: Reports: Arthroscopic Knee, Carpal Tunnel Social & Family History - Tobacco Use Tobacco Use Status *Q: Current Every Day Tobacco User - Caffeine Use Caffeine Use: Reports: Energy Drinks, Soda - Alcohol Use Alcohol Use History: No - Living Situation & Occupation Living situation: Reports: Occupation: Employed (Works at [employer]) ED ROS GENERAL - Review of Systems Review Of Systems: See Below Constitutional: Reports: Fever, Chills, Malaise, Fatigue HEENT: Reports: Throat Pain, Other (Nasal congestion. Hoarse voice.) Respiratory: Reports: Shortness of Breath, Pleuritic Chest Pain, Cough Cardiovascular: Reports: Chest Pain, Dyspnea on Exertion Endocrine: Reports: Fatigue GI/Abdominal: Reports: Vomiting (Some posttussive emesis.). Denies: Diarrhea, Nausea : Denies: Dysuria, Frequency Musculoskeletal: Reports: Back Pain, Other (Generalized body aches.) Skin: Denies: Diaphoresis, Rash Neurological: Reports: Headache. Denies: Dizziness Psychiatric: Reports: Anxiety Hematologic/Lymphatic: Denies: Easy Bleeding, Easy Bruising ED EXAM, GENERAL - Physical Exam Exam: See Below Exam Limited By: No Limitations General Appearance: Alert, WD/WN, Moderate Distress (Appears in some discomfort. There is no respiratory distress.) Eye Exam: Bilateral Eye: EOMI, Normal Inspection, PERRL Ears: Normal External Exam, Hearing Grossly Normal Ear Exam: Bilateral Ear: Auricle Normal Nose: No Blood, Nasal Drainage Throat/Mouth: No Airway Compromise, Other (Hoarse voice. Some pharyngeal erythema.) Head: Atraumatic, Normocephalic Neck: Normal Inspection, Supple, Full Range of Motion, Tender Lateral (Bilaterally in the anterior area.) Respiratory/Chest: No Respiratory Distress, No Accessory Muscle Use, Wheezing (He scattered wheezes but good air movement.). No: Rales, Rhonchi Cardiovascular: Normal Peripheral Pulses, Regular Rate, Rhythm, No Murmur Peripheral Pulses: 2+: Radial (L), Radial (R) GI/Abdominal: Normal Bowel Sounds, Soft, Non-Tender, No Mass Back Exam: Normal Inspection Extremities: Normal Inspection, Normal Range of Motion, Non-Tender, No Pedal Edema, Normal Capillary Refill Neurological: Alert, Oriented, CN II-XII Intact, Normal Cognition, No Motor/Sensory Deficits Psychiatric: Normal Affect Skin Exam: Warm, Dry, Intact, Normal Color, No Rash Course - Vital Signs Last Recorded V/S: Last Vital Signs Temp 36.8 C 07/04/21 04:10 Pulse 108 H 07/04/21 04:10 Resp 20 07/04/21 04:10 BP 148/92 H 07/04/21 04:10 Pulse Ox 99 07/04/21 04:10 - Orders/Labs/Meds Orders: Active Orders 24 hr Category Date Time Status RT Aerosol Therapy [RC] ASDIRECTED Care 07/04/21 05:10 Active Labs: Laboratory Tests 07/04/21 Range/Units 04:10 Influenza Type A RNA Negative (NEGATIVE) Influenza Type B RNA Negative (NEGATIVE) SARS-CoV-2 RNA (GRAY) Negative (NEGATIVE) Meds: Medications Discontinued Medications Generic Name Dose Route Start Last Admin Trade Name Freq PRN Reason Stop Dose Admin Albuterol/Ipratropium 3 ml 07/04/21 05:10 07/04/21 05:20 Albuterol/Ipratropium 3.0-0.5 Mg/3 Ml Neb Soln NEB 07/04/21 05:11 3 ml ONETIME ONE Administration Dexamethasone 8 mg 07/04/21 05:10 07/04/21 05:20 Dexamethasone 4 Mg/Ml Sdv PO 07/04/21 05:11 8 mg ONETIME ONE Administration - Re-Assessments/Exams Free Text/Narrative Re-Assessment/Exam: 07/04/21 05:08: Covid and influenza screens were negative. She is really in no respiratory distress and has normal O2 saturations. However, she did have some mild wheezing and a hoarse voice. I will give her Decadron 8 mg orally and I will give her a DuoNeb and reassess after this. 07/04/21 05:55: Patient does feel improved after the nebulizer treatment. She remains in no respiratory distress. She does have an albuterol inhaler at home and I gave her a tube spacer to use with the inhaler and she should use with this albuterol inhaler every 4 hours as needed for cough or wheezing. She needs to rest. I have given her off of work until 07/07/2021. Cool mist humidifier at home. Precautions and reasons for return to the emergency department were discussed with the patient while she was in the emergency department and were detailed in the patient's discharge instructions. Departure - Departure Time of Disposition: 06:02 Disposition: Home, Self-Care 01 Condition: Good (Improved) Clinical Impression: Laryngitis URI (upper respiratory infection) Qualifiers: URI type: unspecified URI Qualified Code(s): J06.9 - Acute upper respiratory infection, unspecified Reactive airway disease Qualifiers: Asthma severity: moderate Asthma persistence: persistent Asthma complication type: uncomplicated Qualified Code(s): J45.40 - Moderate persistent asthma, uncomplicated - Discharge Information Instructions: Steps to Quit Smoking, [id number], Upper Respiratory Infection, Adult, [id number], Laryngitis, [id number] Referrals: Artis Antonio MD [Primary Care Provider] - Forms: ED Department Discharge, ED Return to Work/School Form Additional Instructions: Your Covid and influenza screens were negative. You must probably have a viral upper respiratory infection that is causing your wheezing and your hoarse voice. I would recommend that you continue the doxycycline until completed. You were given Decadron (a steroid medication and an anti-inflammatory medication) in the emergency department to help with your hoarse voice. It may also help decrease some of the inflammation in your lungs as well. This medication can cause your blood sugars to elevate. You should check your lunch sugars frequently. You should find your albuterol inhaler at home and use it with the spacer that I provided you. You can take 2 puffs every 4 hours as needed for wheezing, cough and shortness of breath. You should use a cool mist humidifier at home and if you have. I recommend that you stop smoking. Increase your fluid intake. No work until 07/07/2021. Back to the emergency department for unrelenting vomiting, worse breathing or any other concerning signs or symptoms. Sepsis Event Note (ED) - Evaluation Sepsis Screening Result: No Definite Risk - Focused Exam Vital Signs: Vital Signs Temp Pulse Resp BP Pulse Ox 07/04/21 04:10 36.8 C 108 H 20 148/92 H 99 - My Orders Last 24 Hours: My Active Orders 07/04/21 05:10 RT Aerosol Therapy [RC] ASDIRECTED - Assessment/Plan Last 24 Hours: My Active Orders 07/04/21 05:10 RT Aerosol Therapy [RC] ASDIRECTED
[2021-07-04 04:59] LABS: CORONAVIRUS COVID-19 NAA NEGATIVE (NEGATIVE)
[2021-07-04] MEDS ORDERED: Albuterol/Ipratropium 3.0-0.5 MG/3 ML Neb Soln NEB ONE (05:10)
[2021-07-04] MEDS ORDERED: Dexamethasone 4 MG/ML SDV PO ONE (05:10)
[2021-07-04 06:27] VITALS: BP 134/86; PULSE 86
== END 2021-07-04 06:15 | disposition home or self-care (01) ==
LOC: FB.ED 04:03
DX: J45.40 Moderate persistent asthma, uncomplicated (principal); J04.0 Acute laryngitis; E11.9 Type 2 diabetes mellitus without complications; E66.9 Obesity, unspecified; Z68.36 Body mass index [BMI] 36.0-36.9, adult; Z88.0 Allergy status to penicillin; Z91.040 Latex allergy status; Z88.5 Allergy status to narcotic agent; Z79.4 Long term (current) use of insulin; Z72.0 Tobacco use; Z20.822 Contact with and (suspected) exposure to COVID-19
CPT/HCPCS: 0240U; 94640; 99283-25; J7620-GY; J8540

== ENCOUNTER 2022-03-29 17:07 | Emergency (ER) | payer BC, OTHER ==
[2022-03-29] MEDS ORDERED: Ciprofloxacin 500 MG Tab PO ONE (17:08)
[2022-03-29 18:08] LABS: ESTIMATED GFR 97 mL/min (>60)
[2022-03-29 18:11] VITALS: BP 147/87; PULSE 117
[2022-03-29] MEDS ORDERED: Sodium Chloride 0.9% 1,000 ML IV ONE (18:38)
[2022-03-29] MEDS ORDERED: Ciprofloxacin in D5W 400 MG in Premix Bag 1 BAG IV ONE ×2 (18:39)
[2022-03-29] MEDS ORDERED: Ketorolac 30 MG/ML SDV IVPUSH ONE (19:22)
== END 2022-03-29 20:35 | disposition home or self-care (01) ==
LOC: FB.ED 17:07
DX: N39.0 Urinary tract infection, site not specified (principal)
CPT/HCPCS: 36415; 71046; 74176; 80053; 81001; 83605; 85025; 87040; 87086; 96365; 96375; 99282; 99284-25; A9270-GY; J0744; J1885; J7030

== ENCOUNTER 2023-01-20 01:04 | Emergency (ER) | payer BC, OTHER ==
[2023-01-20] MEDS ORDERED: Ketorolac 30 MG/ML SDV IM ONE (01:40)
[2023-01-20 03:49] VITALS: BP 126/76; PULSE 96
== END 2023-01-20 02:15 | disposition home or self-care (01) ==
LOC: FB.ED 01:04
DX: S83.422A Sprain of lateral collateral ligament of left knee, initial encounter (principal); M22.2X2 Patellofemoral disorders, left knee; M21.062 Valgus deformity, not elsewhere classified, left knee; E11.9 Type 2 diabetes mellitus without complications; E66.9 Obesity, unspecified; Z68.37 Body mass index [BMI] 37.0-37.9, adult; Z86.16 Personal history of COVID-19; Z79.4 Long term (current) use of insulin; Z79.899 Other long term (current) drug therapy; Z88.0 Allergy status to penicillin; Z88.6 Allergy status to analgesic agent; Z91.040 Latex allergy status; X58.XXXA Exposure to other specified factors, initial encounter
CPT/HCPCS: 96372; 99283; J1885

== ENCOUNTER 2024-11-09 20:29 | Emergency (ER) | payer BC ==
[2024-11-09] MEDS: Ibuprofen 800 MG Tab PO ONE (21:30)
[2024-11-09] MEDS: Acetaminophen 500 MG Tab PO ONE (21:30)
[2024-11-09 23:00] VITALS: BP 163/84; PULSE 110
== END 2024-11-09 22:14 | disposition home or self-care (01) ==
LOC: FB.ED 20:29
DX: S50.01XA Contusion of right elbow, initial encounter (principal); E11.9 Type 2 diabetes mellitus without complications; E66.9 Obesity, unspecified; Z88.8 Allergy status to other drugs, medicaments and biological substances; Z88.0 Allergy status to penicillin; Z91.040 Latex allergy status; Z79.899 Other long term (current) drug therapy; Z79.4 Long term (current) use of insulin; Z79.84 Long term (current) use of oral hypoglycemic drugs; Z86.16 Personal history of COVID-19; Z90.49 Acquired absence of other specified parts of digestive tract; Y04.0XXA Assault by unarmed brawl or fight, initial encounter
CPT/HCPCS: 73080-RT; 99283; A9270-GY